=== PATIENT | male | born 1970 | race African-American/Black ===

== ENCOUNTER 2016-10-02 08:17 | Inpatient (IN) | payer OTHER ==
[2016-10-02 10:06] VITALS: BMI 34.9
--- NOTE | 2016-10-02 12:22 | HP ---
CIWA Score - CIWA Score Nausea/Vomitin-Mild Nausea/No Vomiting Muscle Tremors: 4-Moderate,w/Arms Extend Anxiety: 3 Agitation: 4-Moderately Restless Paroxysmal Sweats: 3 Orientation: 0-Oriented Tacttile Disturbances: 0-None Auditory Disturbances: 0-None Visual Disturbances: 0-None Headache: 1-Very Mild CIWA-Ar Total Score: 16 Admission ROS BHS - HPI Allergies/Adverse Reactions: Allergies Allergy/AdvReac Type Severity Reaction Status Date / Time penicillin G Allergy Severe Swelling Verified 10/02/16 09:50 Exam Limitations: No Limitations - Ebola screening Have you traveled outside of the country in the last 21 days: No Have you had contact with anyone from an Ebola affected area: No Have you been sick,other than usual withdrawal symptoms: No Do you have a fever: No - Review of Systems Constitutional: Diaphoresis EENT: reports: No Symptoms Reported Respiratory: reports: No Symptoms reported Cardiac: reports: No Symptoms Reported GI: reports: Diarrhea, Poor Appetite, Poor Fluid Intake, Indigestion : reports: No Symptoms Reported Musculoskeletal: reports: No Symptoms Reported Integumentary: reports: Other (eczema) Neuro: reports: Tingling, Tremors Endocrine: reports: Excessive Sweating, Flushing, Intolerance to Cold, Intolerance to Heat Hematology: reports: No Symptoms Reported Psychiatric: reports: Judgement Intact, Mood/Affect Appropiate, Orientated x3, Agitated, Anxious Other Systems: Reviewed and Negative Patient History - Patient Medical History Hx Anemia: No Hx Asthma: No Hx Chronic Obstructive Pulmonary Disease (COPD): No Hx Cancer: No Hx Cardiac Disorders: No Hx Congestive Heart Failure: No Hx Hypertension: Yes Hx Hypercholesterolemia: No Hx Pacemaker: No HX Cerebrovascular Accident: No Hx Seizures: No Hx Dementia: No Hx Diabetes: Yes (NIDDM/boarderline ) Hx Gastrointestinal Disorders: Yes (acid reflux) Hx Liver Disease: No Hx Genitourinary Disorders: No Hx Sexually Transmitted Disorders: No Hx Renal Disease (ESRD): No Hx Thyroid Disease: No Hx Human Immunodeficiency Virus (HIV): No (negative) Hx Hepatitis C: No (negative) Hx Depression: No Hx Suicide Attempt: No (denies) Hx Bipolar Disorder: No Hx Schizophrenia: No - Patient Surgical History Past Surgical History: No Hx Neurologic Surgery: No Hx Cataract Extraction: No Hx Cardiac Surgery: No Hx Lung Surgery: No Hx Breast Surgery: No Hx Breast Biopsy: No Hx Abdominal Surgery: No Hx Appendectomy: No Hx Cholecystectomy: No Hx Genitourinary Surgery: No Hx Section: No Hx Orthopedic Surgery: No Anesthesia Reaction: No - PPD History Previous Implant?: Yes Documented Results: Negative w/o proof Implanted On Prior [facility] Admission?: Yes PPD to be Administered?: Yes - Reproductive History Patient is a Female of Child Bearing Age (11 -55 yrs old): No - Smoking Cessation Smoking history: Former smoker Have you smoked in the past 12 months: Yes Aproximately how many cigarettes per day: 20 Cigars Per Day: 0 Hx Chewing Tobacco Use: No Initiated information on smoking cessation: Yes 'Breaking Loose' booklet given: 10/02/16 - Substance & Tx. History Hx Alcohol Use: Yes Hx Substance Use: Yes Substance Use Type: Alcohol, Marijuana - Substances Abused Alcohol-vodka/cognac/beer Route: Oral Frequency: Daily Amount used: 4 pts./2-6 pks. Age of first use: 17 Date of Last Use: 10/02/16 Marijuana Route: Smoking Frequency: Daily Amount used: $20 Age of first use: 19 Date of Last Use: 09/30/16 Family Disease History - Family Disease History Family Disease History: Diabetes: Grandparent, Respiratory: Sister (asthma), Other: Father (,alcohol), Mother (htn) Admission Physical Exam [facility] - Vital Signs Vital Signs: Vital Signs - 24 hr 10/02/16 09:55 Temperature 98 F Pulse Rate 86 Respiratory 20 Rate Blood Pressure 152/79 - Physical General Appearance: Yes: Appropriately Dressed, Moderate Distress, Obese, Tremorous, Irritable, Sweating, Anxious HEENTM: Yes: Hearing grossly Normal Respiratory: Yes: Lungs Clear, Normal Breath Sounds, No Respiratory Distress Neck: Yes: No masses,lesions,Nodules Breast: Yes: Within Normal Limits Cardiology: Yes: Regular Rhythm, Regular Rate, S1, S2 Abdominal: Yes: Normal Bowel Sounds Genitourinary: Yes: Within Normal Limits Back: Yes: Normal Inspection Musculoskeletal: Yes: full range of Motion, Back pain Extremities: Yes: Normal Capillary Refill, Tremors Neurological: Yes: Fully Oriented, Alert, Normal Response Integumentary: Yes: Normal Color, Diaphoresis, Other (eczema) Lymphatic: Yes: Within Normal Limits Cleared for Admission [facility] - Detox or Rehab [facility] Level of Care: Medically Managed Detox Regimen/Protocol: Librium [facility] Breath Alcohol Content Breath Alcohol Content: 0 Urine Drug Screen - Results Drug Screen Negative: No Urine Drug Screen Results: THC-Marijuana
[2016-10-02] MEDS ORDERED: LOPERAMIDE HCL 2 MG CAPSULE PO PRN (12:26)
[2016-10-02] MEDS ORDERED: MAGNESIUM HYDROX 2400MG/30ML ORAL SUSPENSION 30 ML CUP PO PRN (12:26)
[2016-10-02] MEDS ORDERED: guaiFENesin/D-METHORPHAN HB 10 ML UNIT-DOSE CUPS PO PRN (12:26)
[2016-10-02] MEDS ORDERED: MAGNESIUM CITRATE 300 ML BOTTLE PO PRN (12:26)
[2016-10-02] MEDS ORDERED: MAG HYDROX/AL HYDROX/SIMETH 30 ML UNIT-DOSE CUP PO PRN (12:26)
[2016-10-02] MEDS ORDERED: P-EPHED 60MG/TRIPROLIDI 2.5MG TABLET PO PRN (12:26)
[2016-10-02] MEDS ORDERED: MENTHOL/PHENOL 1 EACH UD MM PRN (12:26)
[2016-10-02] MEDS ORDERED: chlordiazePOXIDE HCL 25 MG CAPSULE PO PRN (12:26)
[2016-10-02] MEDS ORDERED: ACETAMINOPHEN 325 MG TABLET (FP) PO PRN (12:26)
[2016-10-02] MEDS ORDERED: IBUPROFEN 400 MG TABLET (FP) PO PRN (12:26)
[2016-10-02] MEDS ORDERED: hydrOXYzine PAMOATE 50 MG CAPSULE (FP) PO PRN (12:26)
[2016-10-02] MEDS ORDERED: chlordiazePOXIDE HCL 25 MG CAPSULE PO ONE (12:34)
[2016-10-02] MEDS: HYDROCHLOROTHIAZIDE 25 MG TABLET (FP) PO SCH (13:19)
--- NOTE | 2016-10-02 16:47 | EKG ---
Test Reason : Blood Pressure : / mmHG Vent. Rate : 076 BPM Atrial Rate : 076 BPM P-R Int : 166 ms QRS Dur : 108 ms QT Int : 402 ms P-R-T Axes : 145 -12 138 degrees QTc Int : 452 ms SINUS RHYTHM NONSPECIFIC T WAVE ABNORMALITY ABNORMAL ECG NO PREVIOUS ECGS AVAILABLE Confirmed by LILLY NAM MD ([id number]) on 10/02/2016 4:46:49 PM Referred By: Javier Ernandez Confirmed By:LILLY NAM MD
--- NOTE | 2016-10-02 16:47 | EKG ---
Test Reason : Blood Pressure : / mmHG Vent. Rate : 083 BPM Atrial Rate : 083 BPM P-R Int : 172 ms QRS Dur : 102 ms QT Int : 402 ms P-R-T Axes : 053 034 039 degrees QTc Int : 472 ms NORMAL SINUS RHYTHM NORMAL ECG WHEN COMPARED WITH ECG OF 02-OCT-2016 12:30, SINUS RHYTHM HAS REPLACED ECTOPIC ATRIAL RHYTHM NONSPECIFIC T WAVE ABNORMALITY NO LONGER EVIDENT IN INFERIOR LEADS Confirmed by VIV CASPER, LILLY ([id number]) on 10/02/2016 4:46:59 PM Referred By: Jvaier Ernandez Confirmed By:LILLY NAM MD
[2016-10-02] MEDS: metFORMIN HCL 500 MG TABLET (FP) PO SCH (17:38)
[2016-10-02] MEDS: chlordiazePOXIDE HCL 25 MG CAPSULE PO SCH ×2 (17:38→23:02)
[2016-10-02 17:44] LABS: URINE APPEARANCE CLEAR; URINE BILIRUBIN NEGATIVE (NEGATIVE); URINE BLOOD NEGATIVE (NEGATIVE); URINE COLOR YELLOW; URINE GLUCOSE (UA) NEGATIVE (NEGATIVE); URINE KETONE TRACE (NEGATIVE); URINE NITRITE NEGATIVE (NEGATIVE); URINE UROBILINOGEN NEGATIVE E.U./dl (0.2-1.0)
[2016-10-02 18:11] LABS: URINE LEUK ESTERASE TRACE (NEGATIVE); URINE PROTEIN 1+ (NEGATIVE)
[2016-10-02] MEDS: diphenhydrAMINE HCL 50 MG CAPSULE PO PRN (23:02)
[2016-10-02] MEDS: THIAMINE HCL 100 MG TABLET (FP) PO SCH (23:02)
[2016-10-03] MEDS: chlordiazePOXIDE HCL 25 MG CAPSULE PO SCH ×4 (06:37→23:09)
[2016-10-03] MEDS: metFORMIN HCL 500 MG TABLET (FP) PO SCH ×2 (06:38→17:25)
[2016-10-03 10:08] LABS: MCH 28.8 pg (25.7-33.7); MCHC 33.1 g/dl (32.0-35.9); MEAN PLT VOLUME 9.7 fl (7.5-11.1); PLATELET COUNT 186 K/MM3 (134-434); RDW 13.6 % (11.9-15.9); WHITE BLOOD COUNT 3.1 K/mm3 (4.0-10.0)
[2016-10-03 10:32] LABS: ALBUMIN 3.7 g/dl (3.4-5.0); BILIRUBIN,TOTAL 0.7 mg/dL (0.2-1.0); COCKROFT - GAULT 106.84; CREATININE 1.5 mg/dL (0.7-1.3); TOT PROT 6.7 g/dl (6.4-8.2)
[2016-10-03] MEDS: PRENATAL VITAMINS W/ FOLIC ACID TABLET (FP) PO SCH (11:41)
[2016-10-03] MEDS: amLODIPine BESYLATE 10 MG TABLET (FP) PO SCH (11:58)
[2016-10-03] MEDS: HYDROCHLOROTHIAZIDE 25 MG TABLET (FP) PO SCH (11:58)
--- NOTE | 2016-10-03 16:15 | PN ---
S CIWA - CIWA Score Nausea/Vomitin Muscle Tremors: 3 Anxiety: 3 Agitation: 2 Paroxysmal Sweats: 1-Minimal Palms Moist Orientation: 0-Oriented Tacttile Disturbances: 3-Moderate Itch/Numb/Burn Auditory Disturbances: 0-None Visual Disturbances: 2-Mild Sensitivity Headache: 2-Mild CIWA-Ar Total Score: 18 BHS Progress Note (SOAP) Subjective: Stomach Cramping, H/A, Tremors. Objective: PT. A & O X 3, OBSERVED AMBULATING ON UNIT. PT. DENIES CHEST PAIN. 10/03/16 16:12 Vital Signs Temperature 97.4 F L 10/03/16 10:15 Pulse Rate 79 10/03/16 11:00 Respiratory Rate 18 10/03/16 11:00 Blood Pressure 152/93 10/03/16 11:00 O2 Sat by Pulse Oximetry (%) Laboratory Last Values WBC 3.1 K/mm3 (4.0-10.0) L D 10/03/16 06:00 RBC 4.65 M/mm3 (4.00-5.60) 10/03/16 06:00 Hgb 13.4 GM/dL (11.7-16.9) 10/03/16 06:00 Hct 40.5 % (35.4-49) 10/03/16 06:00 MCV 87.0 fl (80-96) 10/03/16 06:00 MCHC 33.1 g/dl (32.0-35.9) 10/03/16 06:00 RDW 13.6 % (11.9-15.9) 10/03/16 06:00 Plt Count 186 K/MM3 (134-434) 10/03/16 06:00 MPV 9.7 fl (7.5-11.1) D 10/03/16 06:00 Sodium 142 mmol/L (136-145) 10/03/16 06:00 Potassium 4.1 mmol/L (3.5-5.1) 10/03/16 06:00 Chloride 107 mmol/L (98-107) 10/03/16 06:00 Carbon Dioxide 28 mmol/L (21-32) 10/03/16 06:00 Anion Gap 7 (8-16) L 10/03/16 06:00 BUN 14 mg/dL (7-18) D 10/03/16 06:00 Creatinine 1.5 mg/dL (0.7-1.3) H 10/03/16 06:00 Creat Clearance w eGFR 50.84 (>60) 10/03/16 06:00 POC Glucometer 105 UNITS (()) 10/03/16 06:25 Random Glucose 172 mg/dL (74-106) H D 10/03/16 06:00 Calcium 9.0 mg/dL (8.5-10.1) 10/03/16 06:00 Total Bilirubin 0.7 mg/dL (0.2-1.0) D 10/03/16 06:00 AST 29 U/L (15-37) D 10/03/16 06:00 ALT 51 U/L (12-78) D 10/03/16 06:00 Alkaline Phosphatase 100 U/L (45-117) 10/03/16 06:00 Total Protein 6.7 g/dl (6.4-8.2) 10/03/16 06:00 Albumin 3.7 g/dl (3.4-5.0) 10/03/16 06:00 Urine Color Yellow 10/02/16 13:00 Urine Appearance Clear 10/02/16 13:00 Urine pH 5.0 (5.0-8.0) 10/02/16 13:00 Ur Specific [place] >= 1.030 (1.005-1.025) H 10/02/16 13:00 Urine Protein 1+ (NEGATIVE) H 10/02/16 13:00 Urine Glucose (UA) Negative (NEGATIVE) 10/02/16 13:00 Urine Ketones Trace (NEGATIVE) H 10/02/16 13:00 Urine Blood Negative (NEGATIVE) 10/02/16 13:00 Urine Nitrite Negative (NEGATIVE) 10/02/16 13:00 Urine Bilirubin Negative (NEGATIVE) 10/02/16 13:00 Urine Urobilinogen Negative E.U./dl (0.2-1.0) 10/02/16 13:00 Ur Leukocyte Esterase Trace (NEGATIVE) H 10/02/16 13:00 RPR Titer Nonreactive (NONREACTIVE) 10/03/16 06:00 LABS NOTED. Assessment: 10/03/16 16:13 WITHDRAWAL SYMPTOMS. Plan: CONTINUE DETOX. D/C MAGNESIUM-CONTAINING MEDICATIONS. ADVISED PATIENT TO FOLLOW-UP WITH GEOMAGNETIST / REHAB MEDICAL PROVIDER AFTER DISCHARGE FROM DETOX FOR GENERAL MEDICAL ASSESSMENT AND FOR ABNORMAL ADMISSION LAB VALUES.
[2016-10-03] MEDS ORDERED: cloNIDine HCL 0.1 MG TABLET PO ONE (22:30)
[2016-10-03] MEDS: THIAMINE HCL 100 MG TABLET (FP) PO SCH (23:09)
[2016-10-04] MEDS: chlordiazePOXIDE HCL 25 MG CAPSULE PO SCH ×2 (05:16→10:46)
[2016-10-04] MEDS: amLODIPine BESYLATE 10 MG TABLET (FP) PO SCH ×2 (06:33→10:48)
[2016-10-04] MEDS: CARVEDILOL 3.125 MG TABLET (FP) PO SCH ×3 (06:33→22:31)
[2016-10-04] MEDS: HYDROCHLOROTHIAZIDE 25 MG TABLET (FP) PO SCH ×2 (06:33→10:48)
[2016-10-04] MEDS: metFORMIN HCL 500 MG TABLET (FP) PO SCH ×2 (06:35→17:06)
[2016-10-04] MEDS: PRENATAL VITAMINS W/ FOLIC ACID TABLET (FP) PO SCH (10:47)
--- NOTE | 2016-10-04 15:38 | PN ---
[facility] CIWA - CIWA Score Nausea/Vomitin-No Nausea/No Vomiting Muscle Tremors: 4-Moderate,w/Arms Extend Anxiety: 4-Mod. Anxious/Guarded Agitation: 0-Normal Activity Paroxysmal Sweats: 2 Orientation: 4Disoriented Place/Person Tacttile Disturbances: 0-None Auditory Disturbances: 2-Mild Harshness/Frighten Visual Disturbances: 3-Moderate Sensitivity Headache: 0-None Present CIWA-Ar Total Score: 19 S Progress Note (SOAP) Subjective: Diarrhea, Fatigue, Tremors, Body aches. Objective: PT. A & O X 1 (DISORIENTED ABOUT DAY/DATE AND ABOUT CURRENT LOCATION). PT. OBSERVED AMBULATING ON UNIT. PT. DENIES CHEST PAIN. 10/04/16 15:35 Vital Signs Temperature 97.9 F 10/04/16 13:20 Pulse Rate 98 H 10/04/16 13:20 Respiratory Rate 20 10/04/16 13:20 Blood Pressure 134/92 10/04/16 13:20 O2 Sat by Pulse Oximetry (%) Laboratory Last Values WBC 3.1 K/mm3 (4.0-10.0) L D 10/03/16 06:00 RBC 4.65 M/mm3 (4.00-5.60) 10/03/16 06:00 Hgb 13.4 GM/dL (11.7-16.9) 10/03/16 06:00 Hct 40.5 % (35.4-49) 10/03/16 06:00 MCV 87.0 fl (80-96) 10/03/16 06:00 MCHC 33.1 g/dl (32.0-35.9) 10/03/16 06:00 RDW 13.6 % (11.9-15.9) 10/03/16 06:00 Plt Count 186 K/MM3 (134-434) 10/03/16 06:00 MPV 9.7 fl (7.5-11.1) D 10/03/16 06:00 Sodium 142 mmol/L (136-145) 10/03/16 06:00 Potassium 4.1 mmol/L (3.5-5.1) 10/03/16 06:00 Chloride 107 mmol/L (98-107) 10/03/16 06:00 Carbon Dioxide 28 mmol/L (21-32) 10/03/16 06:00 Anion Gap 7 (8-16) L 10/03/16 06:00 BUN 14 mg/dL (7-18) D 10/03/16 06:00 Creatinine 1.5 mg/dL (0.7-1.3) H 10/03/16 06:00 Creat Clearance w eGFR 50.84 (>60) 10/03/16 06:00 POC Glucometer 131 UNITS (()) 10/04/16 05:15 Random Glucose 172 mg/dL (74-106) H D 10/03/16 06:00 Calcium 9.0 mg/dL (8.5-10.1) 10/03/16 06:00 Total Bilirubin 0.7 mg/dL (0.2-1.0) D 10/03/16 06:00 AST 29 U/L (15-37) D 10/03/16 06:00 ALT 51 U/L (12-78) D 10/03/16 06:00 Alkaline Phosphatase 100 U/L (45-117) 10/03/16 06:00 Total Protein 6.7 g/dl (6.4-8.2) 10/03/16 06:00 Albumin 3.7 g/dl (3.4-5.0) 10/03/16 06:00 Urine Color Yellow 10/02/16 13:00 Urine Appearance Clear 10/02/16 13:00 Urine pH 5.0 (5.0-8.0) 10/02/16 13:00 Ur Specific [place] >= 1.030 (1.005-1.025) H 10/02/16 13:00 Urine Protein 1+ (NEGATIVE) H 10/02/16 13:00 Urine Glucose (UA) Negative (NEGATIVE) 10/02/16 13:00 Urine Ketones Trace (NEGATIVE) H 10/02/16 13:00 Urine Blood Negative (NEGATIVE) 10/02/16 13:00 Urine Nitrite Negative (NEGATIVE) 10/02/16 13:00 Urine Bilirubin Negative (NEGATIVE) 10/02/16 13:00 Urine Urobilinogen Negative E.U./dl (0.2-1.0) 10/02/16 13:00 Ur Leukocyte Esterase Trace (NEGATIVE) H 10/02/16 13:00 RPR Titer Nonreactive (NONREACTIVE) 10/03/16 06:00 LABS NOTED. Assessment: 10/04/16 15:36 WITHDRAWAL SYMPTOMS. Plan: CONTINUE DETOX. CONTINUE TO MONITOR BP. ADVISED PATIENT TO FOLLOW-UP WITH ALLERGY AND IMMUNOLOGY SPECIALIST AFTER DISCHARGE FROM DETOX FOR GENERAL MEDICAL ASSESSMENT AND FOR ABNORMAL ADMISSION LAB VALUES.
[2016-10-04] MEDS: chlordiazePOXIDE 5 MG CAPSULE PO SCH ×2 (17:06→22:31)
[2016-10-04] MEDS: THIAMINE HCL 100 MG TABLET (FP) PO SCH (22:31)
[2016-10-04] MEDS: diphenhydrAMINE HCL 50 MG CAPSULE PO PRN (22:31)
[2016-10-05] MEDS: chlordiazePOXIDE 5 MG CAPSULE PO SCH ×2 (05:52→10:51)
[2016-10-05] MEDS: metFORMIN HCL 500 MG TABLET (FP) PO SCH ×2 (08:35→17:02)
[2016-10-05] MEDS: HYDROCHLOROTHIAZIDE 25 MG TABLET (FP) PO SCH (10:48)
[2016-10-05] MEDS: PRENATAL VITAMINS W/ FOLIC ACID TABLET (FP) PO SCH (10:49)
[2016-10-05] MEDS: amLODIPine BESYLATE 10 MG TABLET (FP) PO SCH (10:49)
[2016-10-05] MEDS: CARVEDILOL 3.125 MG TABLET (FP) PO SCH ×2 (10:49→22:05)
[2016-10-05] MEDS: HYDROCORTISONE 0.5% TOPICAL OINTMENT TUBE TP SCH ×2 (15:22→22:05)
[2016-10-05] MEDS: chlordiazePOXIDE HCL 10 MG CAPSULE PO SCH ×2 (17:02→22:05)
--- NOTE | 2016-10-05 17:05 | PN ---
S Progress Note (SOAP) Subjective: Diarrhea, Fatigue, Tremors. Objective: PT. A & O X 3, OBSERVED AMBULATING ON UNIT. PT. DENIES CHEST PAIN. 10/05/16 17:03 Vital Signs Temperature 96.8 F L 10/05/16 13:29 Pulse Rate 84 10/05/16 13:29 Respiratory Rate 18 10/05/16 13:29 Blood Pressure 157/102 10/05/16 13:29 O2 Sat by Pulse Oximetry (%) Laboratory Last Values WBC 3.1 K/mm3 (4.0-10.0) L D 10/03/16 06:00 RBC 4.65 M/mm3 (4.00-5.60) 10/03/16 06:00 Hgb 13.4 GM/dL (11.7-16.9) 10/03/16 06:00 Hct 40.5 % (35.4-49) 10/03/16 06:00 MCV 87.0 fl (80-96) 10/03/16 06:00 MCHC 33.1 g/dl (32.0-35.9) 10/03/16 06:00 RDW 13.6 % (11.9-15.9) 10/03/16 06:00 Plt Count 186 K/MM3 (134-434) 10/03/16 06:00 MPV 9.7 fl (7.5-11.1) D 10/03/16 06:00 Sodium 142 mmol/L (136-145) 10/03/16 06:00 Potassium 4.1 mmol/L (3.5-5.1) 10/03/16 06:00 Chloride 107 mmol/L (98-107) 10/03/16 06:00 Carbon Dioxide 28 mmol/L (21-32) 10/03/16 06:00 Anion Gap 7 (8-16) L 10/03/16 06:00 BUN 14 mg/dL (7-18) D 10/03/16 06:00 Creatinine 1.5 mg/dL (0.7-1.3) H 10/03/16 06:00 Creat Clearance w eGFR 50.84 (>60) 10/03/16 06:00 POC Glucometer 191 UNITS (()) 10/05/16 16:22 Random Glucose 172 mg/dL (74-106) H D 10/03/16 06:00 Calcium 9.0 mg/dL (8.5-10.1) 10/03/16 06:00 Total Bilirubin 0.7 mg/dL (0.2-1.0) D 10/03/16 06:00 AST 29 U/L (15-37) D 10/03/16 06:00 ALT 51 U/L (12-78) D 10/03/16 06:00 Alkaline Phosphatase 100 U/L (45-117) 10/03/16 06:00 Total Protein 6.7 g/dl (6.4-8.2) 10/03/16 06:00 Albumin 3.7 g/dl (3.4-5.0) 10/03/16 06:00 Urine Color Yellow 10/02/16 13:00 Urine Appearance Clear 10/02/16 13:00 Urine pH 5.0 (5.0-8.0) 10/02/16 13:00 Ur Specific [place] >= 1.030 (1.005-1.025) H 10/02/16 13:00 Urine Protein 1+ (NEGATIVE) H 10/02/16 13:00 Urine Glucose (UA) Negative (NEGATIVE) 10/02/16 13:00 Urine Ketones Trace (NEGATIVE) H 10/02/16 13:00 Urine Blood Negative (NEGATIVE) 10/02/16 13:00 Urine Nitrite Negative (NEGATIVE) 10/02/16 13:00 Urine Bilirubin Negative (NEGATIVE) 10/02/16 13:00 Urine Urobilinogen Negative E.U./dl (0.2-1.0) 10/02/16 13:00 Ur Leukocyte Esterase Trace (NEGATIVE) H 10/02/16 13:00 RPR Titer Nonreactive (NONREACTIVE) 10/03/16 06:00 LABS NOTED. Assessment: 10/05/16 17:05 WITHDRAWAL SYMPTOMS. Plan: CONTINUE DETOX. ADVISED PATIENT TO FOLLOW-UP WITH GETTER WELDER AFTER DISCHARGE FROM DETOX FOR GENERAL MEDICAL ASSESSMENT AND FOR ABNORMAL ADMISSION LAB VALUES.
[2016-10-05] MEDS ORDERED: cloNIDine HCL 0.1 MG TABLET PO ONE (17:34)
[2016-10-05] MEDS: THIAMINE HCL 100 MG TABLET (FP) PO SCH (22:05)
[2016-10-05] MEDS: diphenhydrAMINE HCL 50 MG CAPSULE PO PRN (22:06)
[2016-10-06] MEDS: chlordiazePOXIDE HCL 10 MG CAPSULE PO SCH ×2 (05:49→12:08)
[2016-10-06 06:21] VITALS: BP 153/106; PULSE 78; TEMP 97
[2016-10-06] MEDS: metFORMIN HCL 500 MG TABLET (FP) PO SCH (06:46)
--- NOTE | 2016-10-06 08:31 | DS ---
[facility] Detox Discharge Summary Admission Date: 10/02/16 Discharge Date: 10/06/16 - History Present History: Alcohol Dependence, Cannabis Dependence Pertinent Past History: GERD Type II DM HTN Eczema Obesity - Physical Exam Results Vital Signs: Vital Signs Temperature 97.0 F L 10/06/16 06:20 Pulse Rate 78 10/06/16 06:20 Respiratory Rate 18 10/06/16 06:20 Blood Pressure 153/106 10/06/16 06:20 O2 Sat by Pulse Oximetry (%) Pertinent Admission Physical Exam Findings: Withdrawal sx. Laboratory Last Values WBC 3.1 K/mm3 (4.0-10.0) L D 10/03/16 06:00 RBC 4.65 M/mm3 (4.00-5.60) 10/03/16 06:00 Hgb 13.4 GM/dL (11.7-16.9) 10/03/16 06:00 Hct 40.5 % (35.4-49) 10/03/16 06:00 MCV 87.0 fl (80-96) 10/03/16 06:00 MCHC 33.1 g/dl (32.0-35.9) 10/03/16 06:00 RDW 13.6 % (11.9-15.9) 10/03/16 06:00 Plt Count 186 K/MM3 (134-434) 10/03/16 06:00 MPV 9.7 fl (7.5-11.1) D 10/03/16 06:00 Sodium 142 mmol/L (136-145) 10/03/16 06:00 Potassium 4.1 mmol/L (3.5-5.1) 10/03/16 06:00 Chloride 107 mmol/L (98-107) 10/03/16 06:00 Carbon Dioxide 28 mmol/L (21-32) 10/03/16 06:00 Anion Gap 7 (8-16) L 10/03/16 06:00 BUN 14 mg/dL (7-18) D 10/03/16 06:00 Creatinine 1.5 mg/dL (0.7-1.3) H 10/03/16 06:00 Creat Clearance w eGFR 50.84 (>60) 10/03/16 06:00 POC Glucometer 142 UNITS (()) 10/06/16 05:49 Random Glucose 172 mg/dL (74-106) H D 10/03/16 06:00 Calcium 9.0 mg/dL (8.5-10.1) 10/03/16 06:00 Total Bilirubin 0.7 mg/dL (0.2-1.0) D 10/03/16 06:00 AST 29 U/L (15-37) D 10/03/16 06:00 ALT 51 U/L (12-78) D 10/03/16 06:00 Alkaline Phosphatase 100 U/L (45-117) 10/03/16 06:00 Total Protein 6.7 g/dl (6.4-8.2) 10/03/16 06:00 Albumin 3.7 g/dl (3.4-5.0) 10/03/16 06:00 Urine Color Yellow 10/02/16 13:00 Urine Appearance Clear 10/02/16 13:00 Urine pH 5.0 (5.0-8.0) 10/02/16 13:00 Ur Specific [place] >= 1.030 (1.005-1.025) H 10/02/16 13:00 Urine Protein 1+ (NEGATIVE) H 10/02/16 13:00 Urine Glucose (UA) Negative (NEGATIVE) 10/02/16 13:00 Urine Ketones Trace (NEGATIVE) H 10/02/16 13:00 Urine Blood Negative (NEGATIVE) 10/02/16 13:00 Urine Nitrite Negative (NEGATIVE) 10/02/16 13:00 Urine Bilirubin Negative (NEGATIVE) 10/02/16 13:00 Urine Urobilinogen Negative E.U./dl (0.2-1.0) 10/02/16 13:00 Ur Leukocyte Esterase Trace (NEGATIVE) H 10/02/16 13:00 RPR Titer Nonreactive (NONREACTIVE) 10/03/16 06:00 labs noted - Treatment Hospital Course: Detox Protocol Followed, Detoxed Safely, Responded well, Discharged Condition Good, Rehab Referral Accepted - Medication Discharge Medications: Ambulatory Orders Amlodipine Besylate [Norvasc -] 10 mg PO DAILY #30 tablet 04/16/14 Hydrochlorothiazide 25 mg PO DAILY 10/02/16 Metformin HCl [Glucophage -] 500 mg PO BID 10/02/16 - Diagnosis (1) Alcohol dependence with uncomplicated withdrawal Current Visit: Yes Status: Acute (2) Cannabis dependence Current Visit: No Status: Acute (3) GERD (gastroesophageal reflux disease) Current Visit: Yes Status: Acute Qualifiers: Esophagitis presence: esophagitis presence not specified Qualified Code(s): K21.9 - Gastro-esophageal reflux disease without esophagitis (4) Eczema Current Visit: No Status: Chronic Qualifiers: Eczema type: unspecified Qualified Code(s): L30.9 - Dermatitis, unspecified (5) Essential hypertension Current Visit: Yes Status: Chronic (6) Nicotine dependence Current Visit: Yes Status: Chronic Qualifiers: Nicotine product type: cigarettes Substance use status: uncomplicated Qualified Code(s): F17.210 - Nicotine dependence, cigarettes, uncomplicated (7) Obesity Current Visit: Yes Status: Chronic Qualifiers: Obesity type: unspecified obesity type Obesity severity: non-morbid Qualified Code(s): E66.9 - Obesity, unspecified (8) Type II diabetes mellitus Current Visit: Yes Status: Acute Qualifiers: Diabetes mellitus complication status: without complication Diabetes mellitus truck terminal manager insulin use: without truck terminal manager use Qualified Code(s): E11.9 - Type 2 diabetes mellitus without complications - AMA Did Patient Leave Against Medical Advice: No
[2016-10-06] MEDS: amLODIPine BESYLATE 10 MG TABLET (FP) PO SCH (10:44)
[2016-10-06] MEDS: HYDROCORTISONE 0.5% TOPICAL OINTMENT TUBE TP SCH (10:44)
[2016-10-06] MEDS: CARVEDILOL 3.125 MG TABLET (FP) PO SCH (10:44)
[2016-10-06] MEDS: PRENATAL VITAMINS W/ FOLIC ACID TABLET (FP) PO SCH (10:44)
[2016-10-06] MEDS: HYDROCHLOROTHIAZIDE 25 MG TABLET (FP) PO SCH (10:44)
== END 2016-10-06 12:10 | disposition other institution (70) | DRG 775 ==
LOC: YASAS 08:17 → Y3N 11:47
PROVIDERS: ADMIT Internal Medicine Addiction Medicine; ATTEND Internal Medicine Addiction Medicine
PROC: HZ2ZZZZ Detoxification Services for Substance Abuse Treatment (ICD-10-PCS; principal; 2016-10-06)
DX: F10.230 Alcohol dependence with withdrawal, uncomplicated (principal); F12.20 Cannabis dependence, uncomplicated; F17.210 Nicotine dependence, cigarettes, uncomplicated; E11.9 Type 2 diabetes mellitus without complications; Z79.84 Long term (current) use of oral hypoglycemic drugs; I10 Essential (primary) hypertension; K21.9 Gastro-esophageal reflux disease without esophagitis; L30.9 Dermatitis, unspecified; E66.09 Other obesity due to excess calories; Z68.35 Body mass index [BMI] 35.0-35.9, adult
CPT/HCPCS: 36415; 80053; 81003; 81015; 85027; 86593; 93005; 93010

== ENCOUNTER 2016-10-06 12:12 | Inpatient (IN) | payer OTHER ==
[2016-10-06] MEDS ORDERED: MENTHOL/PHENOL 1 EACH UD MM PRN (13:41)
[2016-10-06] MEDS ORDERED: ACETAMINOPHEN 325 MG TABLET (FP) PO PRN (13:41)
[2016-10-06] MEDS ORDERED: P-EPHED 60MG/TRIPROLIDI 2.5MG TABLET PO PRN (13:41)
[2016-10-06] MEDS ORDERED: LOPERAMIDE HCL 2 MG CAPSULE PO PRN (13:41)
[2016-10-06] MEDS ORDERED: guaiFENesin/D-METHORPHAN HB 10 ML UNIT-DOSE CUPS PO PRN (13:41)
[2016-10-06] MEDS ORDERED: IBUPROFEN 400 MG TABLET (FP) PO PRN (13:41)
[2016-10-06] MEDS ORDERED: MAGNESIUM CITRATE 300 ML BOTTLE PO PRN (13:41)
[2016-10-06] MEDS ORDERED: MAGNESIUM HYDROX 2400MG/30ML ORAL SUSPENSION 30 ML CUP PO PRN (13:41)
--- NOTE | 2016-10-06 16:18 | HP ---
[facility] Re[facility] Assess/Revision - Admission History Admitted to Rehab from: [facility] Date of Admission to Rehab: 10/06/16 - Vital signs Vital Signs: Vital Signs Period Temp Pulse Resp BP Sys/Christina Pulse Ox Last 24 Hr 98 F 86 18 145/93 - Findings Detox History & Physical reviewed: Yes Concur with findings: Yes Comments/Additional Findings: TRANSFERRED FROM DETOX TO REHAB ADMISSION PER PROTOCOL
[2016-10-06] MEDS: metFORMIN HCL 500 MG TABLET (FP) PO SCH (16:54)
[2016-10-06] MEDS: CARVEDILOL 3.125 MG TABLET (FP) PO SCH (22:35)
[2016-10-06] MEDS: THIAMINE HCL 100 MG TABLET (FP) PO SCH (22:36)
[2016-10-06] MEDS: diphenhydrAMINE HCL 50 MG CAPSULE PO PRN (22:37)
[2016-10-07] MEDS: metFORMIN HCL 500 MG TABLET (FP) PO SCH ×2 (06:31→16:45)
[2016-10-07] MEDS: CARVEDILOL 3.125 MG TABLET (FP) PO SCH ×2 (10:19→21:30)
[2016-10-07] MEDS: amLODIPine BESYLATE 10 MG TABLET (FP) PO SCH (10:19)
[2016-10-07] MEDS: PRENATAL VITAMINS W/ FOLIC ACID TABLET (FP) PO SCH (10:19)
[2016-10-07] MEDS: HYDROCORTISONE 0.5% TOPICAL OINTMENT TUBE TP PRN (10:20)
[2016-10-07] MEDS: HYDROCHLOROTHIAZIDE 25 MG TABLET (FP) PO SCH (10:20)
--- NOTE | 2016-10-07 13:56 | HP ---
Psychiatrist Admission - Data Date of interview: 10/07/16 Admission source: 3N Identifying data: This is the first 5N inpatient rehabilitation admission for this 46 year old single male father of 3, he is domiciled, unemployed and supported on SSI. Medical History: HTN, NIDDM, Acid reflux, eczema on back & shoulders Psychiatric History: Denies history of sexual, physical and verbal abuse. Physical/Sexual Abuse/Trauma History: Denies history of psychiatric treatment. Vital Signs: Vital Signs - 24 hr 10/06/16 10/07/16 10/07/16 21:33 03:30 06:56 Temperature 97.4 F L Pulse Rate 86 86 Respiratory 20 20 Rate Blood Pressure 163/90 147/94 Allergies/Adverse Reactions: Allergies Allergy/AdvReac Type Severity Reaction Status Date / Time penicillin G Allergy Severe Swelling Verified 10/06/16 12:26 Date of last physical exam: 10/02/16 Concur with the findings of this exam: Yes - Substance Abuse/Tx History Hx Alcohol Use: Yes Hx Substance Use: Yes Substance Use Type: Alcohol, Marijuana (2-3 times a week $20) Hx Substance Use Treatment: Yes - Admission Criteria Previous failed treatment: Yes Poor recovery environment: Yes Comorbidities: No Lacks judgement: Yes Mental Status Exam - Mental Status Exam Alert and Oriented to: Time, Place, Person Cognitive Function: Grossly Intact Patient Appearance: Well Groomed Mood: Hopeful Affect: Appropriate, Mood Congruent Patient Behavior: Appropriate, Cooperative Speech Pattern: Clear, Appropriate Voice Loudness: Normal Thought Process: Intact, Goal Oriented Thought Disorder: Not Present Hallucinations: Denies Suicidal Ideation: Denies Homicidal Ideation: Denies Insight/Judgement: Fair Sleep: Fair Appetite: Fair Muscle strength/Tone: Normal Gait/Station: Normal Psychiatric Findings - Problem List ([place] 1, 2,3) (1) Alcohol dependence Current Visit: No Status: Acute Qualifiers: Complication of substance-induced condition: uncomplicated (2) GERD (gastroesophageal reflux disease) Current Visit: No Status: Acute Qualifiers: Esophagitis presence: esophagitis presence not specified Qualified Code(s): K21.9 - Gastro-esophageal reflux disease without esophagitis (3) Cannabis dependence Current Visit: No Status: Acute - Initial Treatment Plan Initial Treatment Plan: will monitor progress as needed.
[2016-10-07] MEDS: diphenhydrAMINE HCL 50 MG CAPSULE PO PRN (21:30)
[2016-10-07] MEDS: THIAMINE HCL 100 MG TABLET (FP) PO SCH (21:30)
[2016-10-08] MEDS: metFORMIN HCL 500 MG TABLET (FP) PO SCH ×2 (06:27→16:50)
[2016-10-08] MEDS: HYDROCHLOROTHIAZIDE 25 MG TABLET (FP) PO SCH (10:26)
[2016-10-08] MEDS: CARVEDILOL 3.125 MG TABLET (FP) PO SCH ×2 (10:26→21:30)
[2016-10-08] MEDS: amLODIPine BESYLATE 10 MG TABLET (FP) PO SCH (10:26)
[2016-10-08] MEDS: PRENATAL VITAMINS W/ FOLIC ACID TABLET (FP) PO SCH (10:26)
[2016-10-08] MEDS: diphenhydrAMINE HCL 50 MG CAPSULE PO PRN (21:30)
[2016-10-08] MEDS: THIAMINE HCL 100 MG TABLET (FP) PO SCH (21:30)
[2016-10-09] MEDS: metFORMIN HCL 500 MG TABLET (FP) PO SCH ×2 (06:24→17:07)
[2016-10-09] MEDS: amLODIPine BESYLATE 10 MG TABLET (FP) PO SCH (10:32)
[2016-10-09] MEDS: PRENATAL VITAMINS W/ FOLIC ACID TABLET (FP) PO SCH (10:32)
[2016-10-09] MEDS: HYDROCHLOROTHIAZIDE 25 MG TABLET (FP) PO SCH (10:32)
[2016-10-09] MEDS: CARVEDILOL 3.125 MG TABLET (FP) PO SCH ×2 (10:32→21:34)
[2016-10-09] MEDS: diphenhydrAMINE HCL 50 MG CAPSULE PO PRN (21:34)
[2016-10-09] MEDS: THIAMINE HCL 100 MG TABLET (FP) PO SCH (21:34)
[2016-10-10] MEDS: metFORMIN HCL 500 MG TABLET (FP) PO SCH ×2 (06:41→16:36)
[2016-10-10] MEDS: HYDROCHLOROTHIAZIDE 25 MG TABLET (FP) PO SCH ×2 (06:55→10:13)
[2016-10-10] MEDS: amLODIPine BESYLATE 10 MG TABLET (FP) PO SCH ×2 (06:55→10:13)
[2016-10-10] MEDS: CARVEDILOL 3.125 MG TABLET (FP) PO SCH ×2 (10:13→21:36)
[2016-10-10] MEDS: PRENATAL VITAMINS W/ FOLIC ACID TABLET (FP) PO SCH (10:13)
[2016-10-10] MEDS: HYDROCORTISONE 0.5% TOPICAL OINTMENT TUBE TP PRN (10:14)
[2016-10-10] MEDS ORDERED: ASPIRIN 81 MG CHEWABLE TABLETS PO SCH (13:00)
[2016-10-10] MEDS: diphenhydrAMINE HCL 50 MG CAPSULE PO PRN (21:36)
[2016-10-10] MEDS: THIAMINE HCL 100 MG TABLET (FP) PO SCH (21:36)
[2016-10-10] MEDS ORDERED: ATORVASTATIN CA 20 MG TABLET (FP) PO SCH (22:00)
[2016-10-10] MEDS ORDERED: MONTELUKAST NA 10 MG TABLET PO SCH (22:00)
[2016-10-10] MEDS ORDERED: ACLIDINIUM BROMIDE 400 MCG/INH AERO.POWD IH SCH (22:00)
[2016-10-11] MEDS: metFORMIN HCL 500 MG TABLET (FP) PO SCH ×2 (07:54→16:48)
[2016-10-11] MEDS: HYDROCHLOROTHIAZIDE 25 MG TABLET (FP) PO SCH (10:10)
[2016-10-11] MEDS: PRENATAL VITAMINS W/ FOLIC ACID TABLET (FP) PO SCH (10:10)
[2016-10-11] MEDS: CARVEDILOL 3.125 MG TABLET (FP) PO SCH ×2 (10:10→21:42)
[2016-10-11] MEDS: amLODIPine BESYLATE 10 MG TABLET (FP) PO SCH (10:10)
[2016-10-11] MEDS: diphenhydrAMINE HCL 50 MG CAPSULE PO PRN (21:42)
[2016-10-11] MEDS: THIAMINE HCL 100 MG TABLET (FP) PO SCH (21:43)
[2016-10-12] MEDS: metFORMIN HCL 500 MG TABLET (FP) PO SCH ×2 (06:13→17:26)
[2016-10-12] MEDS: PRENATAL VITAMINS W/ FOLIC ACID TABLET (FP) PO SCH (10:21)
[2016-10-12] MEDS: amLODIPine BESYLATE 10 MG TABLET (FP) PO SCH (10:21)
[2016-10-12] MEDS: HYDROCHLOROTHIAZIDE 25 MG TABLET (FP) PO SCH (10:21)
[2016-10-12] MEDS: CARVEDILOL 3.125 MG TABLET (FP) PO SCH ×2 (10:21→21:35)
[2016-10-12 10:33] LABS: ALBUMIN 3.6 g/dl (3.4-5.0); CALCIUM 8.8 mg/dL (8.5-10.1)
[2016-10-12 10:37] LABS: BILIRUBIN,TOTAL 0.7 mg/dL (0.2-1.0); COCKROFT - GAULT 136.31; CREATININE 1.3 mg/dL (0.7-1.3); TOT PROT 6.6 g/dl (6.4-8.2)
[2016-10-12] MEDS: THIAMINE HCL 100 MG TABLET (FP) PO SCH (21:36)
[2016-10-12] MEDS: diphenhydrAMINE HCL 50 MG CAPSULE PO PRN (21:36)
[2016-10-13] MEDS: metFORMIN HCL 500 MG TABLET (FP) PO SCH ×2 (06:19→16:45)
[2016-10-13] MEDS: CARVEDILOL 3.125 MG TABLET (FP) PO SCH ×2 (10:17→21:45)
[2016-10-13] MEDS: PRENATAL VITAMINS W/ FOLIC ACID TABLET (FP) PO SCH (10:17)
[2016-10-13] MEDS: amLODIPine BESYLATE 10 MG TABLET (FP) PO SCH (10:17)
[2016-10-13] MEDS: HYDROCHLOROTHIAZIDE 25 MG TABLET (FP) PO SCH (10:17)
--- NOTE | 2016-10-13 12:30 | PN ---
S Progress Note Note: Vital Signs Temperature 97.4 F L 10/13/16 07:02 Pulse Rate 84 10/13/16 07:02 Respiratory Rate 18 10/13/16 07:02 Blood Pressure 149/85 10/13/16 07:02 O2 Sat by Pulse Oximetry (%) will add lisinopril 10 mgs po daily,bp monitoring
[2016-10-13] MEDS: THIAMINE HCL 100 MG TABLET (FP) PO SCH (21:45)
[2016-10-13] MEDS: diphenhydrAMINE HCL 50 MG CAPSULE PO PRN (21:45)
[2016-10-14] MEDS: diphenhydrAMINE HCL 50 MG CAPSULE PO PRN ×2 (01:55→21:30)
[2016-10-14] MEDS: metFORMIN HCL 500 MG TABLET (FP) PO SCH ×2 (06:26→16:54)
[2016-10-14] MEDS: HYDROCHLOROTHIAZIDE 25 MG TABLET (FP) PO SCH (10:19)
[2016-10-14] MEDS: CARVEDILOL 3.125 MG TABLET (FP) PO SCH ×2 (10:19→21:29)
[2016-10-14] MEDS: LISINOPRIL 10 MG TABLET (FP) PO SCH (10:19)
[2016-10-14] MEDS: amLODIPine BESYLATE 10 MG TABLET (FP) PO SCH (10:19)
[2016-10-14] MEDS: PRENATAL VITAMINS W/ FOLIC ACID TABLET (FP) PO SCH (10:20)
[2016-10-14] MEDS: THIAMINE HCL 100 MG TABLET (FP) PO SCH (21:29)
[2016-10-15] MEDS: metFORMIN HCL 500 MG TABLET (FP) PO SCH ×2 (06:48→16:44)
[2016-10-15] MEDS: amLODIPine BESYLATE 10 MG TABLET (FP) PO SCH (10:34)
[2016-10-15] MEDS: CARVEDILOL 3.125 MG TABLET (FP) PO SCH ×2 (10:34→21:32)
[2016-10-15] MEDS: LISINOPRIL 10 MG TABLET (FP) PO SCH (10:34)
[2016-10-15] MEDS: PRENATAL VITAMINS W/ FOLIC ACID TABLET (FP) PO SCH (10:34)
[2016-10-15] MEDS: HYDROCHLOROTHIAZIDE 25 MG TABLET (FP) PO SCH (10:34)
[2016-10-15] MEDS: MAG HYDROX/AL HYDROX/SIMETH 30 ML UNIT-DOSE CUP PO PRN (10:34)
[2016-10-15] MEDS: HYDROCORTISONE 0.5% TOPICAL OINTMENT TUBE TP PRN (10:35)
[2016-10-15] MEDS: THIAMINE HCL 100 MG TABLET (FP) PO SCH (21:32)
[2016-10-15] MEDS: diphenhydrAMINE HCL 50 MG CAPSULE PO PRN (21:33)
[2016-10-16] MEDS: metFORMIN HCL 500 MG TABLET (FP) PO SCH (06:49)
[2016-10-16] MEDS: amLODIPine BESYLATE 10 MG TABLET (FP) PO SCH (10:10)
[2016-10-16] MEDS: LISINOPRIL 10 MG TABLET (FP) PO SCH (10:10)
[2016-10-16] MEDS: HYDROCHLOROTHIAZIDE 25 MG TABLET (FP) PO SCH (10:10)
[2016-10-16] MEDS: CARVEDILOL 3.125 MG TABLET (FP) PO SCH ×2 (10:10→21:37)
[2016-10-16] MEDS: PRENATAL VITAMINS W/ FOLIC ACID TABLET (FP) PO SCH (10:10)
[2016-10-16] MEDS: diphenhydrAMINE HCL 50 MG CAPSULE PO PRN (21:37)
[2016-10-16] MEDS: THIAMINE HCL 100 MG TABLET (FP) PO SCH (21:37)
[2016-10-17] MEDS: metFORMIN HCL 500 MG TABLET (FP) PO SCH (06:26)
[2016-10-17] MEDS: CARVEDILOL 3.125 MG TABLET (FP) PO SCH ×2 (10:33→21:40)
[2016-10-17] MEDS: amLODIPine BESYLATE 10 MG TABLET (FP) PO SCH (10:33)
[2016-10-17] MEDS: LISINOPRIL 10 MG TABLET (FP) PO SCH (10:33)
[2016-10-17] MEDS: HYDROCHLOROTHIAZIDE 25 MG TABLET (FP) PO SCH (10:33)
[2016-10-17] MEDS: PRENATAL VITAMINS W/ FOLIC ACID TABLET (FP) PO SCH (10:34)
[2016-10-17] MEDS: THIAMINE HCL 100 MG TABLET (FP) PO SCH (21:40)
[2016-10-17] MEDS: diphenhydrAMINE HCL 50 MG CAPSULE PO PRN (21:41)
[2016-10-18] MEDS: metFORMIN HCL 500 MG TABLET (FP) PO SCH (06:40)
[2016-10-18] MEDS: PRENATAL VITAMINS W/ FOLIC ACID TABLET (FP) PO SCH (09:14)
[2016-10-18] MEDS: HYDROCHLOROTHIAZIDE 25 MG TABLET (FP) PO SCH (09:14)
[2016-10-18] MEDS: CARVEDILOL 3.125 MG TABLET (FP) PO SCH ×2 (09:14→21:23)
[2016-10-18] MEDS: MAG HYDROX/AL HYDROX/SIMETH 30 ML UNIT-DOSE CUP PO PRN (09:15)
[2016-10-18] MEDS: amLODIPine BESYLATE 10 MG TABLET (FP) PO SCH (09:15)
[2016-10-18] MEDS: LISINOPRIL 10 MG TABLET (FP) PO SCH (09:15)
[2016-10-18] MEDS: diphenhydrAMINE HCL 50 MG CAPSULE PO PRN (21:23)
[2016-10-18] MEDS: THIAMINE HCL 100 MG TABLET (FP) PO SCH (21:23)
[2016-10-19] MEDS: diphenhydrAMINE HCL 50 MG CAPSULE PO PRN ×2 (01:55→21:41)
[2016-10-19] MEDS: metFORMIN HCL 500 MG TABLET (FP) PO SCH (07:00)
[2016-10-19] MEDS: LISINOPRIL 10 MG TABLET (FP) PO SCH (10:14)
[2016-10-19] MEDS: CARVEDILOL 3.125 MG TABLET (FP) PO SCH ×2 (10:14→21:40)
[2016-10-19] MEDS: HYDROCHLOROTHIAZIDE 25 MG TABLET (FP) PO SCH (10:14)
[2016-10-19] MEDS: amLODIPine BESYLATE 10 MG TABLET (FP) PO SCH (10:14)
[2016-10-19] MEDS: PRENATAL VITAMINS W/ FOLIC ACID TABLET (FP) PO SCH (10:15)
[2016-10-19] MEDS: THIAMINE HCL 100 MG TABLET (FP) PO SCH (21:41)
[2016-10-20] MEDS: metFORMIN HCL 500 MG TABLET (FP) PO SCH (06:04)
[2016-10-20] MEDS: PRENATAL VITAMINS W/ FOLIC ACID TABLET (FP) PO SCH (10:39)
[2016-10-20] MEDS: amLODIPine BESYLATE 10 MG TABLET (FP) PO SCH (10:39)
[2016-10-20] MEDS: HYDROCORTISONE 0.5% TOPICAL OINTMENT TUBE TP PRN ×2 (10:39→21:53)
[2016-10-20] MEDS: HYDROCHLOROTHIAZIDE 25 MG TABLET (FP) PO SCH (10:39)
[2016-10-20] MEDS: CARVEDILOL 3.125 MG TABLET (FP) PO SCH ×2 (10:39→21:51)
[2016-10-20] MEDS: LISINOPRIL 10 MG TABLET (FP) PO SCH (10:40)
[2016-10-20] MEDS: diphenhydrAMINE HCL 50 MG CAPSULE PO PRN (21:52)
[2016-10-20] MEDS: THIAMINE HCL 100 MG TABLET (FP) PO SCH (21:52)
[2016-10-21] MEDS: metFORMIN HCL 500 MG TABLET (FP) PO SCH (06:32)
[2016-10-21 07:10] VITALS: BP 129/87; PULSE 76; TEMP 98
[2016-10-21] MEDS: PRENATAL VITAMINS W/ FOLIC ACID TABLET (FP) PO SCH (10:24)
[2016-10-21] MEDS: amLODIPine BESYLATE 10 MG TABLET (FP) PO SCH (10:24)
[2016-10-21] MEDS: HYDROCHLOROTHIAZIDE 25 MG TABLET (FP) PO SCH (10:24)
[2016-10-21] MEDS: CARVEDILOL 3.125 MG TABLET (FP) PO SCH (10:24)
[2016-10-21] MEDS: LISINOPRIL 10 MG TABLET (FP) PO SCH (10:24)
[2016-10-21] MEDS: HYDROCORTISONE 0.5% TOPICAL OINTMENT TUBE TP PRN (10:25)
--- NOTE | 2016-10-21 13:22 | PN ---
Psychiatric Progress Note Vital Signs: Vital Signs Period Temp Pulse Resp BP Sys/Christina Pulse Ox Last 24 Hr 98.0 F 64-76 18-18 129-153/87-88 Date of Session: 10/21/16 Chief Complaint:: discharge visit HPI: Patient has addressed alcohol, cannabis dependence. ROS: GERD medically managed. Current Medications: Active Medications Generic Name Dose Route Start Last Admin Trade Name Freq PRN Reason Stop Dose Admin Acetaminophen 650 mg 10/06/16 13:41 Tylenol - PO Q4H PRN FEVER OR PAIN Al Hydroxide/Mg Hydroxide 30 ml 10/06/16 13:41 10/18/16 09:15 Mylanta Oral Suspension - PO 30 ml Q6H PRN Administration DYSPEPSIA Amlodipine Besylate 10 mg 10/07/16 10:00 10/21/16 10:24 Norvasc - PO 10 mg DAILY ROSALIO Administration Carvedilol 3.125 mg 10/06/16 22:00 10/21/16 10:24 Coreg - PO 3.125 mg BID ROSALIO Administration Diphenhydramine HCl 50 mg 10/06/16 13:41 10/20/16 21:52 Benadryl - PO 50 mg HSMR1 PRN Administration FOR ITCHING Eucalyptus/Menthol/Phenol/Sorbitol 1 each 10/06/16 13:41 10/17/16 05:51 Cepastat Lozenge - MM 1 each Q4H PRN Administration SORE THROAT Guaifenesin 10 ml 10/06/16 13:41 Robitussin Dm - PO Q6H PRN COUGH Hydrochlorothiazide 25 mg 10/07/16 10:00 10/21/16 10:24 Hctz - PO 25 mg DAILY ROSALIO Administration Hydrocortisone 1 applic 10/06/16 13:43 10/21/16 10:25 Hytone 0.5% Ointment - TP 1 applic BID PRN Administration DRY SKIN Ibuprofen 400 mg 10/06/16 13:41 Motrin - PO Q6H PRN PAIN Lisinopril 10 mg 10/14/16 10:00 10/21/16 10:24 Prinivil PO 10 mg DAILY ROSALIO Administration Loperamide HCl 4 mg 10/06/16 13:41 Imodium - PO Q6H PRN DIARRHEA Magnesium Hydroxide 30 ml 10/06/16 13:41 Milk Of Magnesia - PO DAILY PRN CONSTIPATION Metformin HCl 500 mg 10/17/16 07:00 10/21/16 06:32 Glucophage - PO 500 mg DAILY@0700 ROSALIO Administration Multivit/Folic Acid/Iron 1 tab 10/07/16 10:00 10/21/16 10:24 Vitamins (Sjr) - PO 1 tab DAILY ROSALIO Administration Pseudoephedrine/Triprolidine 1 combo 10/06/16 13:41 Actifed - PO TID PRN NASAL CONGESTION Thiamine HCl 100 mg 10/06/16 22:00 10/20/16 21:52 Vitamin B1 - PO Not Given HS ROSALIO Current Side Effect: No Lab tests ordered: No Lab tests reviewed: Yes Provider note:: Patient has completed today this treatment and met his goals, will conitnue to address his issues at [facility]. Patient gained insights into his addiction and motivated to continue maintain abstinence. Patient is stable for discharge. Total face to face time:: 15 Mental Status Exam - Mental Status Exam Alert and Oriented to: Time, Place, Person Cognitive Function: Good Patient Appearance: Well Groomed Mood: Hopeful Affect: Appropriate, Mood Congruent Patient Behavior: Appropriate, Cooperative Speech Pattern: Clear, Appropriate Voice Loudness: Normal Thought Process: Intact, Goal Oriented Thought Disorder: Not Present Hallucinations: Denies Suicidal Ideation: Denies Homicidal Ideation: Denies Insight/Judgement: Fair Sleep: Fair Appetite: Fair Muscle strength/Tone: Normal Gait/Station: Normal Psychiatric Treatment Plan - Problem List (1) Alcohol dependence Current Visit: No Qualifiers: Complication of substance-induced condition: uncomplicated (2) GERD (gastroesophageal reflux disease) Current Visit: No Qualifiers: Esophagitis presence: esophagitis presence not specified Qualified Code(s): K21.9 - Gastro-esophageal reflux disease without esophagitis (3) Cannabis dependence Current Visit: No
== END 2016-10-21 13:35 | disposition home or self-care (01) | DRG 772 ==
LOC: YASAS 12:12 → Y5N 12:13
PROVIDERS: ADMIT Psychiatry & Neurology Psychiatry; ATTEND Psychiatry & Neurology Psychiatry
PROC: HZ42ZZZ Group Counseling for Substance Abuse Treatment, Cognitive-Behavioral (ICD-10-PCS; principal; 2016-10-06)
DX: F10.20 Alcohol dependence, uncomplicated (principal); F12.20 Cannabis dependence, uncomplicated; K21.9 Gastro-esophageal reflux disease without esophagitis
CPT/HCPCS: 36415; 80053

== ENCOUNTER 2017-01-19 14:06 | Inpatient (IN) | payer OTHER ==
[2017-01-19 15:38] VITALS: BMI 39.5
--- NOTE | 2017-01-19 17:21 | HP ---
CIWA Score - CIWA Score Nausea/Vomitin-No Nausea/No Vomiting Muscle Tremors: 4-Moderate,w/Arms Extend Anxiety: 4-Mod. Anxious/Guarded Agitation: 4-Moderately Restless Paroxysmal Sweats: 1-Minimal Palms Moist Orientation: 0-Oriented Tacttile Disturbances: 0-None Auditory Disturbances: 0-None Visual Disturbances: 0-None Headache: 2-Mild CIWA-Ar Total Score: 15 Admission ROS BHS - HPI Chief Complaint: withdrawal sx Allergies/Adverse Reactions: Allergies Allergy/AdvReac Type Severity Reaction Status Date / Time penicillin G Allergy Severe Swelling Verified 01/19/17 17:19 History of Present Illness: 46 years old male with long history of alcohol marijuana dependence has hypertension diabetes ii denies mental illness is admitted to detox Exam Limitations: No Limitations - Ebola screening Have you traveled outside of the country in the last 21 days: No Have you had contact with anyone from an Ebola affected area: No Have you been sick,other than usual withdrawal symptoms: No Do you have a fever: No - Review of Systems Constitutional: Weight Stable EENT: reports: No Symptoms Reported Respiratory: reports: No Symptoms reported Cardiac: reports: No Symptoms Reported GI: reports: Nausea, Poor Fluid Intake, Abdominal cramping : reports: No Symptoms Reported Musculoskeletal: reports: Back Pain (fell at age 36), Joint Pain (right hip) Integumentary: reports: Dryness Neuro: reports: Tremors Endocrine: reports: No Symptoms Reported Hematology: reports: No Symptoms Reported Psychiatric: reports: Judgement Intact, Mood/Affect Appropiate, Orientated x3 Other Systems: Reviewed and Negative Patient History - Patient Medical History Hx Anemia: No Hx Asthma: No Hx Chronic Obstructive Pulmonary Disease (COPD): No Hx Cancer: No Hx Cardiac Disorders: No Hx Congestive Heart Failure: No Hx Hypertension: Yes (on meds) Hx Hypercholesterolemia: No Hx Pacemaker: No HX Cerebrovascular Accident: No Hx Seizures: No Hx Dementia: No Hx Diabetes: Yes (NIDDM) Hx Gastrointestinal Disorders: No (Acid Reflux by history) Hx Liver Disease: No Hx Genitourinary Disorders: No Hx Sexually Transmitted Disorders: No Hx Renal Disease (ESRD): No Hx Thyroid Disease: No Hx Human Immunodeficiency Virus (HIV): No (negative) Hx Hepatitis C: No (negative) Hx Depression: No Hx Suicide Attempt: No (denies) Hx Bipolar Disorder: No Hx Schizophrenia: No - Patient Surgical History Past Surgical History: No Hx Neurologic Surgery: No Hx Cataract Extraction: No Hx Cardiac Surgery: No Hx Lung Surgery: No Hx Breast Surgery: No Hx Breast Biopsy: No Hx Abdominal Surgery: No Hx Appendectomy: No Hx Cholecystectomy: No Hx Genitourinary Surgery: No Hx Orthopedic Surgery: No - PPD History Previous Implant?: Yes Documented Results: Negative w/proof Implanted On Prior [facility] Admission?: Yes Date: 10/04/16 Results: 0 mm. PPD to be Administered?: No - Smoking Cessation Smoking history: Former smoker Have you smoked in the past 12 months: No If you are a former smoker, when did you quit?: 09/2016 Cigars Per Day: 0 Hx Chewing Tobacco Use: No Initiated information on smoking cessation: No - Substance & Tx. History Hx Alcohol Use: Yes Hx Substance Use: Yes Substance Use Type: Alcohol, Marijuana Hx Substance Use Treatment[facility] - Substances Abused Alcohol Route: Oral Frequency: Daily Family Disease History - Family Disease History Family Disease History: Diabetes: Grandparent, Mother (htn), Heart Disease: Mother, Respiratory: Sister (asthma), Other: Father (,alcohol), Mother Admission Physical Exam BHS - Vital Signs Vital Signs: Vital Signs - 24 hr 01/19/17 15:36 Temperature 97.6 F Pulse Rate 83 Respiratory 20 Rate Blood Pressure 168/109 - Physical General Appearance: Yes: Nourished, Appropriately Dressed, Mild Distress, Tremorous, Irritable, Sweating, Anxious HEENTM: Yes: Hearing grossly Normal, Normal ENT Inspection, Normocephalic, Normal Voice Respiratory: Yes: Chest Non-Tender, Lungs Clear, Normal Breath Sounds, No Respiratory Distress, No Accessory Muscle Use Neck: Yes: Supple, Trachea in good position Breast: Yes: Breasts Symetrical Cardiology: Yes: Regular Rhythm, Regular Rate, S1, S2 Abdominal: Yes: Normal Bowel Sounds, Non Tender, Soft Genitourinary: Yes: Within Normal Limits Back: Yes: Normal Inspection Musculoskeletal: Yes: full range of Motion, Gait Steady, Back pain, Muscle Pain (right hip) Extremities: Yes: Normal Inspection, Normal Range of Motion, Non-Tender, Tremors Neurological: Yes: Fully Oriented, Alert, Motor Strength 5/5, Normal Mood/Affect , Normal Response Integumentary: Yes: Dry, Warm Lymphatic: Yes: Within Normal Limits - Diagnostic (1) Alcohol dependence with uncomplicated withdrawal Current Visit: Yes Status: Acute (2) Type II diabetes mellitus Current Visit: Yes Status: Chronic Qualifiers: Diabetes mellitus complication status: without complication Diabetes mellitus medical terminologist insulin use: without medical terminologist use Qualified Code(s): E11.9 - Type 2 diabetes mellitus without complications (3) Essential hypertension Current Visit: Yes Status: Chronic (4) Cannabis dependence, uncomplicated Current Visit: Yes Status: Chronic (5) Chronic back pain Current Visit: Yes Status: Chronic Qualifiers: Back pain location: low back pain Back pain laterality: right Sciatica presence: without sciatica Qualified Code(s): M54.5 - Low back pain; G89.29 - Other chronic pain Cleared for Admission BHS - Detox or Rehab [facility] Level of Care: Medically Managed Detox Regimen/Protocol: Librium S Breath Alcohol Content Breath Alcohol Content: 0 Urine Drug Screen - Results Drug Screen Negative: No Urine Drug Screen Results: THC-Marijuana, TCA-Tricyclic Antidepress
[2017-01-19] MEDS ORDERED: LOPERAMIDE HCL 2 MG CAPSULE PO PRN (17:24)
[2017-01-19] MEDS ORDERED: MAG HYDROX/AL HYDROX/SIMETH 30 ML UNIT-DOSE CUP PO PRN (17:24)
[2017-01-19] MEDS ORDERED: chlordiazePOXIDE HCL 25 MG CAPSULE PO PRN (17:24)
[2017-01-19] MEDS ORDERED: MENTHOL/PHENOL 1 EACH UD MM PRN (17:24)
[2017-01-19] MEDS ORDERED: IBUPROFEN 400 MG TABLET (FP) PO PRN (17:24)
[2017-01-19] MEDS ORDERED: MAGNESIUM HYDROX 2400MG/30ML ORAL SUSPENSION 30 ML CUP PO PRN (17:24)
[2017-01-19] MEDS ORDERED: hydrOXYzine PAMOATE 50 MG CAPSULE (FP) PO PRN (17:24)
[2017-01-19] MEDS ORDERED: ACETAMINOPHEN 325 MG TABLET (FP) PO PRN (17:24)
[2017-01-19] MEDS ORDERED: guaiFENesin/D-METHORPHAN HB 10 ML UNIT-DOSE CUPS PO PRN (17:24)
[2017-01-19] MEDS ORDERED: P-EPHED 60MG/TRIPROLIDI 2.5MG TABLET PO PRN (17:24)
[2017-01-19] MEDS ORDERED: MAGNESIUM CITRATE 300 ML BOTTLE PO PRN (17:24)
[2017-01-19] MEDS: HYDROCHLOROTHIAZIDE 25 MG TABLET (FP) PO SCH (19:37)
[2017-01-19] MEDS: amLODIPine BESYLATE 10 MG TABLET (FP) PO SCH (19:38)
[2017-01-19] MEDS: LISINOPRIL 10 MG TABLET (FP) PO SCH (19:38)
[2017-01-19 20:59] LABS: URINE APPEARANCE SLCLOUDY; URINE BILIRUBIN NEGATIVE (NEGATIVE); URINE BLOOD NEGATIVE (NEGATIVE); URINE COLOR DKYELLOW; URINE GLUCOSE (UA) NEGATIVE (NEGATIVE); URINE KETONE NEGATIVE (NEGATIVE); URINE LEUK ESTERASE NEGATIVE (NEGATIVE); URINE NITRITE NEGATIVE (NEGATIVE); URINE UROBILINOGEN NEGATIVE mg/dL (0.2-1.0)
[2017-01-19 21:10] LABS: URINE PROTEIN 1+ (NEGATIVE)
[2017-01-19 21:19] LABS: URINE BACTERIA RARE /hpf (NONE SEEN); URINE MUCUS FEW; URINE RBC 2 /hpf (0-3); URINE WBC 5 /hpf (3-5)
[2017-01-19] MEDS: THIAMINE HCL 100 MG TABLET (FP) PO SCH (22:16)
[2017-01-19] MEDS: chlordiazePOXIDE HCL 25 MG CAPSULE PO SCH (22:16)
[2017-01-19] MEDS: diphenhydrAMINE HCL 50 MG CAPSULE PO PRN (22:16)
[2017-01-19] MEDS: MINERAL OIL/PETROLAT/WATER TOPICAL CREAM 113 GM JAR TP SCH (22:18)
[2017-01-19] MEDS: LIDOCAINE PATCH REMOVAL MC SCH (22:41)
[2017-01-20] MEDS: chlordiazePOXIDE HCL 25 MG CAPSULE PO SCH ×4 (06:14→22:14)
[2017-01-20] MEDS: metFORMIN HCL 500 MG TABLET (FP) PO SCH (06:14)
[2017-01-20 10:19] LABS: MCH 29.1 pg (25.7-33.7); MCHC 33.8 g/dl (32.0-35.9); MEAN PLT VOLUME 8.9 fl (7.5-11.1); PLATELET COUNT 178 K/MM3 (134-434); RDW 13.9 % (11.9-15.9); WHITE BLOOD COUNT 3.2 K/mm3 (4.0-10.0)
[2017-01-20 10:43] LABS: ALBUMIN 3.6 g/dl (3.4-5.0); ALK PHOS 115 U/L (45-117); ANION GAP 7 (8-16); BILIRUBIN,TOTAL 0.8 mg/dL (0.2-1.0); CALCIUM 9.4 mg/dL (8.5-10.1); CO2 32 mmol/L (21-32); CREATININE 1.2 mg/dL (0.7-1.3); GLUCOSE,RANDOM 104 mg/dL (74-106); SGOT/AST 14 U/L (15-37); SGPT/ALT 32 U/L (12-78); TOT PROT 7.3 g/dl (6.4-8.2)
[2017-01-20] MEDS: HYDROCHLOROTHIAZIDE 25 MG TABLET (FP) PO SCH (10:57)
[2017-01-20] MEDS: amLODIPine BESYLATE 10 MG TABLET (FP) PO SCH (10:57)
[2017-01-20] MEDS: PRENATAL VITAMINS W/ FOLIC ACID TABLET (FP) PO SCH (10:57)
[2017-01-20] MEDS: CYCLOBENZAPRINE HCL 10 MG TABLET (FP) PO PRN ×2 (10:57→22:14)
[2017-01-20] MEDS: LISINOPRIL 10 MG TABLET (FP) PO SCH (10:58)
[2017-01-20] MEDS: LIDOCAINE 5% TOPICAL PATCH TP SCH (11:00)
--- NOTE | 2017-01-20 11:58 | PN ---
S CIWA - CIWA Score Nausea/Vomitin Muscle Tremors: 3 Anxiety: 3 Agitation: 2 Paroxysmal Sweats: 1-Minimal Palms Moist Orientation: 0-Oriented Tacttile Disturbances: 1-Very Mild Itch/Numbness Auditory Disturbances: 1-Very Mild Visual Disturbances: 0-None Headache: 2-Mild CIWA-Ar Total Score: 16 S Progress Note (SOAP) Subjective: ALERT,IRRITABLE,ANXIOUS,INTERRUPTED ,TREMOR Objective: 01/20/17 11:56 Vital Signs Temperature 98.1 F 01/20/17 11:08 Pulse Rate 94 H 01/20/17 11:08 Respiratory Rate 20 01/20/17 11:08 Blood Pressure 130/93 01/20/17 11:08 O2 Sat by Pulse Oximetry (%) EKG NSR Laboratory Last Values WBC 3.2 K/mm3 (4.0-10.0) L 01/20/17 07:00 RBC 4.63 M/mm3 (4.00-5.60) 01/20/17 07:00 Hgb 13.5 GM/dL (11.7-16.9) 01/20/17 07:00 Hct 39.9 % (35.4-49) 01/20/17 07:00 MCV 86.0 fl (80-96) 01/20/17 07:00 MCH 29.1 pg (25.7-33.7) 01/20/17 07:00 MCHC 33.8 g/dl (32.0-35.9) 01/20/17 07:00 RDW 13.9 % (11.9-15.9) 01/20/17 07:00 Plt Count 178 K/MM3 (134-434) 01/20/17 07:00 MPV 8.9 fl (7.5-11.1) 01/20/17 07:00 Sodium 139 mmol/L (136-145) 01/20/17 07:00 Potassium 3.9 mmol/L (3.5-5.1) 01/20/17 07:00 Chloride 100 mmol/L (98-107) 01/20/17 07:00 Carbon Dioxide 32 mmol/L (21-32) 01/20/17 07:00 Anion Gap 7 (8-16) L 01/20/17 07:00 BUN 9 mg/dL (7-18) 01/20/17 07:00 Creatinine 1.2 mg/dL (0.7-1.3) 01/20/17 07:00 Creat Clearance w eGFR > 60 (>60) 01/20/17 07:00 POC Glucometer 112 UNITS (()) 01/20/17 06:10 Random Glucose 104 mg/dL (74-106) D 01/20/17 07:00 Calcium 9.4 mg/dL (8.5-10.1) 01/20/17 07:00 Total Bilirubin 0.8 mg/dL (0.2-1.0) 01/20/17 07:00 AST 14 U/L (15-37) L D 01/20/17 07:00 ALT 32 U/L (12-78) D 01/20/17 07:00 Alkaline Phosphatase 115 U/L (45-117) 01/20/17 07:00 Total Protein 7.3 g/dl (6.4-8.2) 01/20/17 07:00 Albumin 3.6 g/dl (3.4-5.0) 01/20/17 07:00 Urine Color Dkyellow 01/19/17 20:47 Urine Appearance Slcloudy 01/19/17 20:47 Urine pH 7.0 (5.0-8.0) D 01/19/17 20:47 Ur Specific [place] 1.020 (1.005-1.025) 01/19/17 20:47 Urine Protein 1+ (NEGATIVE) H 01/19/17 20:47 Urine Glucose (UA) Negative (NEGATIVE) 01/19/17 20:47 Urine Ketones Negative (NEGATIVE) 01/19/17 20:47 Urine Blood Negative (NEGATIVE) 01/19/17 20:47 Urine Nitrite Negative (NEGATIVE) 01/19/17 20:47 Urine Bilirubin Negative (NEGATIVE) 01/19/17 20:47 Urine Urobilinogen Negative mg/dL (0.2-1.0) 01/19/17 20:47 Ur Leukocyte Esterase Negative (NEGATIVE) 01/19/17 20:47 Urine RBC 2 /hpf (0-3) 01/19/17 20:47 Urine WBC 5 /hpf (3-5) 01/19/17 20:47 Ur Epithelial Cells Rare /hpf (FEW) 01/19/17 20:47 Urine Bacteria Rare /hpf (NONE SEEN) 01/19/17 20:47 Urine Mucus Few 01/19/17 20:47 RPR Titer Nonreactive (NONREACTIVE) 01/20/17 07:00 Assessment: 01/20/17 11:57 WITHDRAWAL SYMPTOM Plan: CONTINUE DETOX
[2017-01-20] MEDS: THIAMINE HCL 100 MG TABLET (FP) PO SCH (22:14)
[2017-01-20] MEDS: diphenhydrAMINE HCL 50 MG CAPSULE PO PRN (22:15)
[2017-01-20] MEDS: LIDOCAINE PATCH REMOVAL MC SCH (22:31)
[2017-01-20] MEDS: MINERAL OIL/PETROLAT/WATER TOPICAL CREAM 113 GM JAR TP SCH (22:31)
[2017-01-21] MEDS: metFORMIN HCL 500 MG TABLET (FP) PO SCH (06:49)
[2017-01-21] MEDS: chlordiazePOXIDE HCL 25 MG CAPSULE PO SCH ×3 (06:49→17:33)
[2017-01-21] MEDS: amLODIPine BESYLATE 10 MG TABLET (FP) PO SCH (10:48)
[2017-01-21] MEDS: HYDROCHLOROTHIAZIDE 25 MG TABLET (FP) PO SCH (10:48)
[2017-01-21] MEDS: PRENATAL VITAMINS W/ FOLIC ACID TABLET (FP) PO SCH (10:49)
[2017-01-21] MEDS: LIDOCAINE 5% TOPICAL PATCH TP SCH (10:49)
[2017-01-21] MEDS: LISINOPRIL 10 MG TABLET (FP) PO SCH (10:50)
--- NOTE | 2017-01-21 11:47 | PN ---
S CIWA - CIWA Score Nausea/Vomitin Muscle Tremors: 4-Moderate,w/Arms Extend Anxiety: 4-Mod. Anxious/Guarded Agitation: 4-Moderately Restless Paroxysmal Sweats: 3 Orientation: 0-Oriented Tacttile Disturbances: 1-Very Mild Itch/Numbness Auditory Disturbances: 0-None Visual Disturbances: 0-None Headache: 1-Very Mild CIWA-Ar Total Score: 20 BHS Progress Note (SOAP) Subjective: nausea, sweats, interrupted sleep, anxiety, tremors Objective: 01/21/17 11:46 Vital Signs - 8 hr 01/21/17 01/21/17 06:37 10:00 Temperature 98 F 98.2 F Pulse Rate 85 101 H Respiratory 18 20 Rate Blood Pressure 120/87 125/65 Laboratory Tests 01/19/17 01/19/17 01/19/17 07:00 17:35 20:47 WBC RBC Hgb Hct MCV MCH MCHC RDW Plt Count MPV Sodium Potassium Chloride Carbon Dioxide Anion Gap BUN Creatinine Creat Clearance w eGFR POC Glucometer 87 Random Glucose Calcium Total Bilirubin AST ALT Alkaline Phosphatase Total Protein Albumin Urine Color Dkyellow Urine Appearance Slcloudy Urine pH 7.0 D Ur Specific [place] 1.020 Urine Protein 1+ H Urine Glucose (UA) Negative Urine Ketones Negative Urine Blood Negative Urine Nitrite Negative Urine Bilirubin Negative Urine Urobilinogen Negative Ur Leukocyte Esterase Negative Urine RBC 2 Urine WBC 5 Ur Epithelial Cells Rare Urine Bacteria Rare Urine Mucus Few RPR Titer Hepatitis C Antibody 0.1 01/20/17 01/20/17 01/20/17 06:10 07:00 07:00 WBC 3.2 L RBC 4.63 Hgb 13.5 Hct 39.9 MCV 86.0 MCH 29.1 MCHC 33.8 RDW 13.9 Plt Count 178 MPV 8.9 Sodium 139 Potassium 3.9 Chloride 100 Carbon Dioxide 32 Anion Gap 7 L BUN 9 Creatinine 1.2 Creat Clearance w eGFR > 60 POC Glucometer 112 Random Glucose 104 D Calcium 9.4 Total Bilirubin 0.8 AST 14 L D ALT 32 D Alkaline Phosphatase 115 Total Protein 7.3 Albumin 3.6 Urine Color Urine Appearance Urine pH Ur Specific [place] Urine Protein Urine Glucose (UA) Urine Ketones Urine Blood Urine Nitrite Urine Bilirubin Urine Urobilinogen Ur Leukocyte Esterase Urine RBC Urine WBC Ur Epithelial Cells Urine Bacteria Urine Mucus RPR Titer Hepatitis C Antibody 01/20/17 01/21/17 07:00 06:11 WBC RBC Hgb Hct MCV MCH MCHC RDW Plt Count MPV Sodium Potassium Chloride Carbon Dioxide Anion Gap BUN Creatinine Creat Clearance w eGFR POC Glucometer 183 Random Glucose Calcium Total Bilirubin AST ALT Alkaline Phosphatase Total Protein Albumin Urine Color Urine Appearance Urine pH Ur Specific [place] Urine Protein Urine Glucose (UA) Urine Ketones Urine Blood Urine Nitrite Urine Bilirubin Urine Urobilinogen Ur Leukocyte Esterase Urine RBC Urine WBC Ur Epithelial Cells Urine Bacteria Urine Mucus RPR Titer Nonreactive Hepatitis C Antibody Assessment: 01/21/17 11:46 withdrawal sx, Plan: cont detox, fluids, encourage ambulation
[2017-01-21] MEDS: diphenhydrAMINE HCL 50 MG CAPSULE PO PRN (22:19)
[2017-01-21] MEDS: THIAMINE HCL 100 MG TABLET (FP) PO SCH (22:19)
[2017-01-21] MEDS: chlordiazePOXIDE 5 MG CAPSULE PO SCH (22:19)
[2017-01-21] MEDS: CYCLOBENZAPRINE HCL 10 MG TABLET (FP) PO PRN (22:19)
[2017-01-21] MEDS: LIDOCAINE PATCH REMOVAL MC SCH (22:34)
[2017-01-21] MEDS: MINERAL OIL/PETROLAT/WATER TOPICAL CREAM 113 GM JAR TP SCH (22:35)
[2017-01-22] MEDS: chlordiazePOXIDE 5 MG CAPSULE PO SCH ×3 (06:13→19:28)
[2017-01-22] MEDS: metFORMIN HCL 500 MG TABLET (FP) PO SCH (06:13)
[2017-01-22] MEDS: PRENATAL VITAMINS W/ FOLIC ACID TABLET (FP) PO SCH (11:09)
[2017-01-22] MEDS: HYDROCHLOROTHIAZIDE 25 MG TABLET (FP) PO SCH (11:09)
[2017-01-22] MEDS: amLODIPine BESYLATE 10 MG TABLET (FP) PO SCH (11:09)
[2017-01-22] MEDS: LISINOPRIL 10 MG TABLET (FP) PO SCH (11:09)
[2017-01-22] MEDS: LIDOCAINE 5% TOPICAL PATCH TP SCH (11:10)
--- NOTE | 2017-01-22 11:36 | EKG ---
Test Reason : Blood Pressure : / mmHG Vent. Rate : 075 BPM Atrial Rate : 075 BPM P-R Int : 168 ms QRS Dur : 106 ms QT Int : 416 ms P-R-T Axes : 037 024 014 degrees QTc Int : 464 ms NORMAL SINUS RHYTHM POSSIBLE LEFT ATRIAL ENLARGEMENT BORDERLINE ECG WHEN COMPARED WITH ECG OF 02-OCT-2016 13:33, NO SIGNIFICANT CHANGE WAS FOUND Confirmed by LILLY NAM MD ([id number]) on 01/22/2017 11:36:46 AM Referred By: Confirmed By:LILLY NAM MD
--- NOTE | 2017-01-22 13:34 | PN ---
BHS Progress Note (SOAP) Subjective: nausa, sweats, interrupted sleep, anxiety, tremors Objective: 01/22/17 13:33 Vital Signs - 24 hr 01/21/17 01/21/17 01/21/17 15:59 17:10 22:00 Temperature 98.1 F 99 F 98.4 F Pulse Rate 105 H 92 H 109 H Respiratory 20 20 20 Rate Blood Pressure 139/87 146/71 153/90 01/22/17 01/22/17 01/22/17 00:30 03:30 06:40 Temperature 97.0 F L Pulse Rate 100 H Respiratory 18 18 18 Rate Blood Pressure 147/96 01/22/17 09:35 Temperature 96.7 F L Pulse Rate 103 H Respiratory 18 Rate Blood Pressure 136/93 Laboratory Tests 01/19/17 01/19/17 01/19/17 07:00 17:35 20:47 WBC RBC Hgb Hct MCV MCH MCHC RDW Plt Count MPV Sodium Potassium Chloride Carbon Dioxide Anion Gap BUN Creatinine Creat Clearance w eGFR POC Glucometer 87 Random Glucose Calcium Total Bilirubin AST ALT Alkaline Phosphatase Total Protein Albumin Urine Color Dkyellow Urine Appearance Slcloudy Urine pH 7.0 D Ur Specific [place] 1.020 Urine Protein 1+ H Urine Glucose (UA) Negative Urine Ketones Negative Urine Blood Negative Urine Nitrite Negative Urine Bilirubin Negative Urine Urobilinogen Negative Ur Leukocyte Esterase Negative Urine RBC 2 Urine WBC 5 Ur Epithelial Cells Rare Urine Bacteria Rare Urine Mucus Few RPR Titer Hepatitis C Antibody 0.1 01/20/17 01/20/17 01/20/17 06:10 07:00 07:00 WBC 3.2 L RBC 4.63 Hgb 13.5 Hct 39.9 MCV 86.0 MCH 29.1 MCHC 33.8 RDW 13.9 Plt Count 178 MPV 8.9 Sodium 139 Potassium 3.9 Chloride 100 Carbon Dioxide 32 Anion Gap 7 L BUN 9 Creatinine 1.2 Creat Clearance w eGFR > 60 POC Glucometer 112 Random Glucose 104 D Calcium 9.4 Total Bilirubin 0.8 AST 14 L D ALT 32 D Alkaline Phosphatase 115 Total Protein 7.3 Albumin 3.6 Urine Color Urine Appearance Urine pH Ur Specific [place] Urine Protein Urine Glucose (UA) Urine Ketones Urine Blood Urine Nitrite Urine Bilirubin Urine Urobilinogen Ur Leukocyte Esterase Urine RBC Urine WBC Ur Epithelial Cells Urine Bacteria Urine Mucus RPR Titer Hepatitis C Antibody 01/20/17 01/21/17 01/22/17 07:00 06:11 06:12 WBC RBC Hgb Hct MCV MCH MCHC RDW Plt Count MPV Sodium Potassium Chloride Carbon Dioxide Anion Gap BUN Creatinine Creat Clearance w eGFR POC Glucometer 183 136 Random Glucose Calcium Total Bilirubin AST ALT Alkaline Phosphatase Total Protein Albumin Urine Color Urine Appearance Urine pH Ur Specific [place] Urine Protein Urine Glucose (UA) Urine Ketones Urine Blood Urine Nitrite Urine Bilirubin Urine Urobilinogen Ur Leukocyte Esterase Urine RBC Urine WBC Ur Epithelial Cells Urine Bacteria Urine Mucus RPR Titer Nonreactive Hepatitis C Antibody Assessment: 01/22/17 13:33 withdrawal sx, htn, tachycardia Plan: cont detox, cont bp meds, fluids, low salt diet
[2017-01-22] MEDS: cloNIDine HCL 0.1 MG TABLET PO SCH ×2 (15:30→23:25)
[2017-01-22] MEDS: METOPROLOL TARTRATE 25 MG TABLET (FP) PO SCH ×2 (19:28→23:25)
[2017-01-22] MEDS: chlordiazePOXIDE HCL 10 MG CAPSULE PO SCH (23:25)
[2017-01-22] MEDS: THIAMINE HCL 100 MG TABLET (FP) PO SCH (23:25)
[2017-01-22] MEDS: LIDOCAINE PATCH REMOVAL MC SCH (23:26)
[2017-01-22] MEDS: MINERAL OIL/PETROLAT/WATER TOPICAL CREAM 113 GM JAR TP SCH (23:26)
[2017-01-23] MEDS: chlordiazePOXIDE HCL 10 MG CAPSULE PO SCH (05:45)
[2017-01-23] MEDS ORDERED: cloNIDine HCL 0.1 MG TABLET PO ONE (06:15)
[2017-01-23] MEDS: metFORMIN HCL 500 MG TABLET (FP) PO SCH (07:02)
[2017-01-23] MEDS ORDERED: chlordiazePOXIDE 5 MG CAPSULE ONE (09:18)
--- NOTE | 2017-01-23 09:49 | DS ---
[facility] Detox Discharge Summary Admission Date: 01/19/17 Discharge Date: 01/23/17 - History Present History: Alcohol Dependence, Cannabis Dependence Additional Comments: FOLLOW UP WITH AFTER CARE PROGRAM ARRANGEMENT Pertinent Past History: TYPE 2 DM ESSENTIAL HYPERTENSION CHRONIC BACK PAIN - Physical Exam Results Vital Signs: Vital Signs Temperature 97.9 F 01/23/17 06:00 Pulse Rate 89 01/23/17 07:30 Respiratory Rate 18 01/23/17 07:30 Blood Pressure 157/90 01/23/17 07:30 O2 Sat by Pulse Oximetry (%) Pertinent Admission Physical Exam Findings: WITHDRAWAL SYMPTOM - Treatment Hospital Course: Detox Protocol Followed, Detoxed Safely, Responded well, Discharged Condition Good Patient has Accepted a Rehab Referral to: [facility] - Medication Discharge Medications: Ambulatory Orders Amlodipine Besylate [Norvasc -] 10 mg PO DAILY #30 tablet 04/16/14 Hydrochlorothiazide 25 mg PO DAILY #30 tab 10/21/16 Lisinopril [Prinivil] 10 mg PO DAILY #30 tablet 10/21/16 Metformin HCl [Glucophage -] 500 mg PO DAILY@0700 #30 tablet 10/21/16 - Diagnosis (1) Alcohol dependence with uncomplicated withdrawal Current Visit: Yes Status: Acute (2) Cannabis dependence, uncomplicated Current Visit: Yes Status: Chronic (3) Chronic back pain Current Visit: Yes Status: Chronic Qualifiers: Back pain location: low back pain Back pain laterality: right Sciatica presence: without sciatica Qualified Code(s): M54.5 - Low back pain; G89.29 - Other chronic pain (4) Essential hypertension Current Visit: Yes Status: Chronic (5) Type II diabetes mellitus Current Visit: Yes Status: Chronic Qualifiers: Diabetes mellitus complication status: without complication Diabetes mellitus terminologist insulin use: without terminologist use Qualified Code(s): E11.9 - Type 2 diabetes mellitus without complications (6) Nicotine dependence Current Visit: No Status: Chronic Qualifiers: Nicotine product type: cigarettes Substance use status: uncomplicated Qualified Code(s): F17.210 - Nicotine dependence, cigarettes, uncomplicated (7) Obesity Current Visit: No Status: Chronic Qualifiers: Obesity type: unspecified obesity type Qualified Code(s): E66.9 - Obesity, unspecified - AMA Did Patient Leave Against Medical Advice: No
[2017-01-23 10:23] VITALS: BP 156/71; PULSE 91; TEMP 97.5
== END 2017-01-23 10:03 | disposition other institution (70) | DRG 775 ==
LOC: YASAS 14:06 → Y6N 18:40
PROVIDERS: ADMIT Internal Medicine Addiction Medicine; ATTEND Internal Medicine Addiction Medicine
PROC: HZ2ZZZZ Detoxification Services for Substance Abuse Treatment (ICD-10-PCS; principal; 2017-01-23)
DX: F10.230 Alcohol dependence with withdrawal, uncomplicated (principal); F12.20 Cannabis dependence, uncomplicated; F17.210 Nicotine dependence, cigarettes, uncomplicated; I10 Essential (primary) hypertension; E11.9 Type 2 diabetes mellitus without complications; Z79.84 Long term (current) use of oral hypoglycemic drugs; M54.5 Low back pain; G89.29 Other chronic pain
CPT/HCPCS: 36415; 80053; 81003; 81015; 85027; 86593; 86803; 93005; 93010

== ENCOUNTER 2018-01-12 12:30 | Inpatient (IN) | payer OTHER ==
[2018-01-12 13:13] VITALS: BMI 38.1
--- NOTE | 2018-01-12 18:00 | HP ---
CIWA Score - CIWA Score Nausea/Vomitin Muscle Tremors: 4-Moderate,w/Arms Extend Anxiety: 4-Mod. Anxious/Guarded Agitation: 3 Paroxysmal Sweats: 2 Orientation: 0-Oriented Tacttile Disturbances: 0-None Auditory Disturbances: 0-None Visual Disturbances: 0-None Headache: 0-None Present CIWA-Ar Total Score: 16 Admission ROS BHS - HPI Chief Complaint: ALCOHOL WITHDRAWAL SX Allergies/Adverse Reactions: Allergies Allergy/AdvReac Type Severity Reaction Status Date / Time penicillin G Allergy Severe Swelling Verified 01/19/17 17:19 red meat Allergy Uncoded 01/12/18 14:27 History of Present Illness: PT IS A 47 Y/O AA/MALE WITH A HX OF ALCOHOL AND MARIJUANA DEPENDENCE SEEKING DETOX TX. PT HAS PREVIOUS TREATMENT HX. Exam Limitations: No Limitations - Ebola screening Have you traveled outside of the country in the last 21 days: No (N) Have you had contact with anyone from an Ebola affected area: No Have you been sick,other than usual withdrawal symptoms: No Do you have a fever: No - Review of Systems Constitutional: Chills, Night Sweats, Changes in sleep EENT: reports: Blurred Vision Respiratory: reports: No Symptoms reported Cardiac: reports: No Symptoms Reported GI: reports: Diarrhea, Nausea, Poor Fluid Intake : reports: No Symptoms Reported Musculoskeletal: reports: Back Pain (LBP) Integumentary: reports: Rash (HX ECZEMA--HYDROCORTISONE CREAM) Neuro: reports: Headache, Tremors, Unsteady Gait Endocrine: reports: No Symptoms Reported Hematology: reports: No Symptoms Reported Psychiatric: reports: Orientated x3 Other Systems: Reviewed and Negative Patient History - Patient Medical History Hx Anemia: No Hx Asthma: No Hx Chronic Obstructive Pulmonary Disease (COPD): No Hx Cancer: No Hx Cardiac Disorders: No Hx Congestive Heart Failure: No Hx Hypertension: Yes (on meds.-AMLODOPINE AND HCTZ) Hx Hypercholesterolemia: No Hx Pacemaker: No HX Cerebrovascular Accident: No Hx Seizures: No Hx Dementia: No Hx Diabetes: Yes (diet controlled-BGM 183 MG/DL) Hx Gastrointestinal Disorders: No Hx Liver Disease: No Hx Genitourinary Disorders: No Hx Sexually Transmitted Disorders: No (DENIES) Hx Renal Disease (ESRD): No Hx Thyroid Disease: No Hx Human Immunodeficiency Virus (HIV): No (NEGATIVE HX) Hx Hepatitis C: No (NEGATIVE HX) Hx Depression: No Hx Suicide Attempt: No (DENIES S/I) Hx Bipolar Disorder: No Hx Schizophrenia: No - Patient Surgical History Past Surgical History: No Hx Neurologic Surgery: No Hx Cataract Extraction: No Hx Cardiac Surgery: No Hx Lung Surgery: No Hx Breast Surgery: No Hx Breast Biopsy: No Hx Abdominal Surgery: No Hx Appendectomy: No Hx Cholecystectomy: No Hx Genitourinary Surgery: No Hx Section: No Hx Orthopedic Surgery: No Anesthesia Reaction: No - PPD History Previous Implant?: Yes Documented Results: Negative w/o proof Implanted On Prior R Admission?: Yes Date: 10/04/16 Results: 0 mm. - Smoking Cessation Smoking history: Former smoker Have you smoked in the past 12 months: Yes If you are a former smoker, when did you quit?: 09/2016 Cigars Per Day: 0 Hx Chewing Tobacco Use: No Initiated information on smoking cessation: No - Substances Abused Alcohol Route: Oral Frequency: Daily Amount used: 1 pint cognac Age of first use: 18 Date of Last Use: 01/11/18 Marijuana/Hashish Route: Smoking Frequency: Daily Amount used: 3 bags Age of first use: 20 Date of Last Use: 01/11/18 Family Disease History - Family Disease History Family Disease History: Diabetes: Grandparent, Mother (htn), Heart Disease: Mother, Respiratory: Sister (asthma), Other: Father (,alcohol), Mother Admission Physical Exam BHS - Vital Signs Vital Signs: Vital Signs - 24 hr 01/12/18 13:11 Temperature 98.9 F Pulse Rate 71 Respiratory 20 Rate Blood Pressure 167/95 - Physical General Appearance: Yes: Moderate Distress, Obese, Irritable, Anxious HEENTM: Yes: EOMI, Normocephalic, CATINA, Pharynx Normal Respiratory: Yes: Chest Non-Tender, Lungs Clear, Normal Breath Sounds Neck: Yes: No masses,lesions,Nodules, Supple, Trachea in good position Breast: Yes: Breast Exam Deferred Cardiology: Yes: Regular Rhythm, Regular Rate, S1, S2 Abdominal: Yes: Normal Bowel Sounds, Non Tender Genitourinary: Yes: Other (N/C) Back: Yes: Within Normal Limits Musculoskeletal: Yes: full range of Motion, Gait Steady Extremities: Yes: Normal Range of Motion, Non-Tender 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, Fully Oriented, Alert, Motor Strength 5/5 Integumentary: Yes: Dry, Warm Lymphatic: Yes: Within Normal Limits - Diagnostic (1) Alcohol dependence with uncomplicated withdrawal Current Visit: Yes Status: Acute (2) GERD (gastroesophageal reflux disease) Current Visit: Yes Status: Acute Qualifiers: Esophagitis presence: esophagitis presence not specified Qualified Code(s) : K21.9 - Gastro-esophageal reflux disease without esophagitis (3) Borderline diabetes mellitus Current Visit: Yes Status: Chronic (4) Cannabis dependence, uncomplicated Current Visit: Yes Status: Chronic (5) Chronic back pain Current Visit: Yes Status: Chronic Qualifiers: Back pain location: low back pain Back pain laterality: right Sciatica presence: without sciatica Qualified Code(s): M54.5 - Low back pain (6) Eczema Current Visit: Yes Status: Chronic Qualifiers: Eczema type: unspecified Qualified Code(s): L30.9 - Dermatitis, unspecified (7) Essential hypertension Current Visit: Yes Status: Chronic (8) Obesity Current Visit: Yes Status: Chronic Qualifiers: Obesity type: unspecified obesity type Cleared for Admission S - Detox or Rehab [facility] Level of Care: Medically Managed Detox Regimen/Protocol: Librium [facility] Breath Alcohol Content Breath Alcohol Content: 0 Urine Drug Screen - Results Drug Screen Negative: No Urine Drug Screen Results: THC-Marijuana
[2018-01-12] MEDS ORDERED: MAG HYDROX/AL HYDROX/SIMETH 30 ML UNIT-DOSE CUP PO PRN (18:07)
[2018-01-12] MEDS ORDERED: MAGNESIUM CITRATE 300 ML BOTTLE PO PRN (18:07)
[2018-01-12] MEDS ORDERED: ACETAMINOPHEN 325 MG TABLET (FP) PO PRN (18:07)
[2018-01-12] MEDS ORDERED: MENTHOL/PHENOL 1 EACH UD MM PRN (18:07)
[2018-01-12] MEDS ORDERED: P-EPHED 60MG/TRIPROLIDI 2.5MG TABLET PO PRN (18:07)
[2018-01-12] MEDS ORDERED: NICOTINE POLACRILEX 2 MG GUM BC PRN (18:07)
[2018-01-12] MEDS ORDERED: MAGNESIUM HYDROX 2400MG/30ML ORAL SUSPENSION 30 ML CUP PO PRN (18:07)
[2018-01-12] MEDS ORDERED: IBUPROFEN 400 MG TABLET (FP) PO PRN (18:07)
[2018-01-12] MEDS ORDERED: LOPERAMIDE HCL 2 MG CAPSULE PO PRN (18:07)
[2018-01-12] MEDS ORDERED: guaiFENesin/D-METHORPHAN HB 10 ML UNIT-DOSE CUPS PO PRN (18:07)
[2018-01-12] MEDS ORDERED: chlordiazePOXIDE HCL 25 MG CAPSULE PO PRN (18:07)
[2018-01-12] MEDS ORDERED: HYDROCHLOROTHIAZIDE 25 MG TABLET (FP) PO SCH (18:45)
[2018-01-12] MEDS: amLODIPine BESYLATE 10 MG TABLET (FP) PO SCH (19:08)
[2018-01-12] MEDS: NICOTINE 14 MG/24 HOURS TOPICAL PATCH TD SCH (19:09)
[2018-01-12] MEDS: chlordiazePOXIDE HCL 25 MG CAPSULE PO SCH (22:06)
[2018-01-12] MEDS: THIAMINE HCL 100 MG TABLET (FP) PO SCH (22:06)
[2018-01-13 00:10] LABS: URINE APPEARANCE CLEAR; URINE BILIRUBIN NEGATIVE (<2.0 mg/dL); URINE COLOR YELLOW; URINE GLUCOSE (UA) 3+ (NEGATIVE); URINE KETONE NEGATIVE (NEGATIVE); URINE LEUK ESTERASE NEGATIVE (NEGATIVE); URINE NITRITE NEGATIVE (NEGATIVE); URINE PROTEIN NEGATIVE (NEGATIVE)
[2018-01-13] MEDS: chlordiazePOXIDE HCL 25 MG CAPSULE PO SCH ×4 (06:01→22:09)
[2018-01-13] MEDS: HYDROCHLOROTHIAZIDE 25 MG TABLET (FP) PO SCH (07:30)
[2018-01-13] MEDS: NICOTINE 14 MG/24 HOURS TOPICAL PATCH TD SCH (10:47)
[2018-01-13] MEDS: PRENATAL VITAMINS W/ FOLIC ACID TABLET (FP) PO SCH (10:47)
[2018-01-13] MEDS: amLODIPine BESYLATE 10 MG TABLET (FP) PO SCH (10:48)
[2018-01-13 10:56] LABS: HEMATOCRIT 41.3 % (35.4-49); HEMOGLOBIN 13.9 GM/dL (11.7-16.9); MCH 28.9 pg (25.7-33.7); MCHC 33.7 g/dl (32.0-35.9); MEAN CELL VOLUME 85.6 fl (80-96); MEAN PLT VOLUME 9.5 fl (7.5-11.1); PLATELET COUNT 182 K/MM3 (134-434); RBC 4.83 M/mm3 (4.00-5.60); RDW 13.6 % (11.9-15.9); WHITE BLOOD COUNT 3.4 K/mm3 (4.0-10.0)
--- NOTE | 2018-01-13 11:28 | PN ---
S CIWA - CIWA Score Nausea/Vomitin Muscle Tremors: 3 Anxiety: 3 Agitation: 2 Paroxysmal Sweats: 1-Minimal Palms Moist Orientation: 0-Oriented Tacttile Disturbances: 1-Very Mild Itch/Numbness Auditory Disturbances: 1-Very Mild Visual Disturbances: 0-None Headache: 2-Mild CIWA-Ar Total Score: 16 BHS Progress Note (SOAP) Subjective: alert,irritable,anxious,interrupted sleep,tremor Objective: 01/13/18 11:26 Vital Signs Temperature 97.9 F 01/13/18 09:54 Pulse Rate 81 01/13/18 09:54 Respiratory Rate 18 01/13/18 09:54 Blood Pressure 156/82 01/13/18 09:54 O2 Sat by Pulse Oximetry (%) ekg nsr,normal ecg qt/qtc 416/452 Laboratory Last Values WBC 3.4 K/mm3 (4.0-10.0) L 01/13/18 07:00 RBC 4.83 M/mm3 (4.00-5.60) 01/13/18 07:00 Hgb 13.9 GM/dL (11.7-16.9) 01/13/18 07:00 Hct 41.3 % (35.4-49) 01/13/18 07:00 MCV 85.6 fl (80-96) 01/13/18 07:00 MCH 28.9 pg (25.7-33.7) 01/13/18 07:00 MCHC 33.7 g/dl (32.0-35.9) 01/13/18 07:00 RDW 13.6 % (11.9-15.9) 01/13/18 07:00 Plt Count 182 K/MM3 (134-434) 01/13/18 07:00 MPV 9.5 fl (7.5-11.1) 01/13/18 07:00 POC Glucometer 183 UNITS (80-120) 01/12/18 14:37 Urine Color Yellow 01/12/18 22:00 Urine Appearance Clear 01/12/18 22:00 Urine pH 6.0 (5.0-8.0) 01/12/18 22:00 Ur Specific [place] 1.021 (1.001-1.035) 01/12/18 22:00 Urine Protein Negative (NEGATIVE) 01/12/18 22:00 Urine Glucose (UA) 3+ (NEGATIVE) H 01/12/18 22:00 Urine Ketones Negative (NEGATIVE) 01/12/18 22:00 Urine Blood Negative (NEGATIVE) 01/12/18 22:00 Urine Nitrite Negative (NEGATIVE) 01/12/18 22:00 Urine Bilirubin Negative (<2.0 mg/dL) 01/12/18 22:00 Urine Urobilinogen 2.0 mg/dL (0.2-1.0) 01/12/18 22:00 Ur Leukocyte Esterase Negative (NEGATIVE) 01/12/18 22:00 Assessment: 01/13/18 11:27 withdrawal symptom Plan: continue detox ,bgm monitoring
[2018-01-13 11:30] LABS: CHLORIDE 102 mmol/L (98-107); POTASSIUM 3.4 mmol/L (3.5-5.1); SODIUM 141 mmol/L (136-145)
[2018-01-13 11:43] LABS: ALBUMIN 3.8 g/dl (3.4-5.0); ALK PHOS 108 U/L (45-117); ANION GAP 9 MMOL/L (8-16); BILIRUBIN,TOTAL 0.6 mg/dL (0.2-1.0); BLOOD UREA NITROGEN 9 mg/dL (7-18); CALCIUM 8.9 mg/dL (8.5-10.1); CO2 30 mmol/L (21-32); GLUCOSE,RANDOM 123 mg/dL (74-106); SGOT/AST 15 U/L (15-37); SGPT/ALT 27 U/L (12-78); TOT PROT 7.4 g/dl (6.4-8.2)
--- NOTE | 2018-01-13 20:20 | EKG ---
Test Reason : Blood Pressure : / mmHG Vent. Rate : 071 BPM Atrial Rate : 071 BPM P-R Int : 154 ms QRS Dur : 110 ms QT Int : 416 ms P-R-T Axes : 051 029 013 degrees QTc Int : 452 ms NORMAL SINUS RHYTHM NORMAL ECG WHEN COMPARED WITH ECG OF 19-JAN-2017 18:47, T WAVE AMPLITUDE HAS DECREASED IN LATERAL LEADS Confirmed by KAL REYNOLDS MD ([id number]) on 01/13/2018 8:20:04 PM Referred By: Confirmed By:KAL REYNOLDS MD
[2018-01-13] MEDS: THIAMINE HCL 100 MG TABLET (FP) PO SCH (22:09)
[2018-01-13] MEDS: MELATONIN 5 MG TABLETS PO PRN (22:10)
[2018-01-14] MEDS: chlordiazePOXIDE HCL 25 MG CAPSULE PO SCH ×3 (06:10→23:51)
[2018-01-14] MEDS: HYDROCHLOROTHIAZIDE 25 MG TABLET (FP) PO SCH (07:00)
--- NOTE | 2018-01-14 11:15 | PN ---
S CIWA - CIWA Score Nausea/Vomitin Muscle Tremors: 3 Anxiety: 3 Agitation: 2 Paroxysmal Sweats: 1-Minimal Palms Moist Orientation: 0-Oriented Tacttile Disturbances: 1-Very Mild Itch/Numbness Auditory Disturbances: 1-Very Mild Visual Disturbances: 0-None Headache: 2-Mild CIWA-Ar Total Score: 16 BHS Progress Note (SOAP) Subjective: alert,irritable,anxious,interrupted sleep,tremor Objective: 01/14/18 11:14 Vital Signs Temperature 98.5 F 01/14/18 09:28 Pulse Rate 101 H 01/14/18 09:28 Respiratory Rate 18 01/14/18 09:28 Blood Pressure 135/91 01/14/18 09:28 O2 Sat by Pulse Oximetry (%) 01/14/18 11:14 Laboratory Last Values WBC 3.4 K/mm3 (4.0-10.0) L 01/13/18 07:00 RBC 4.83 M/mm3 (4.00-5.60) 01/13/18 07:00 Hgb 13.9 GM/dL (11.7-16.9) 01/13/18 07:00 Hct 41.3 % (35.4-49) 01/13/18 07:00 MCV 85.6 fl (80-96) 01/13/18 07:00 MCH 28.9 pg (25.7-33.7) 01/13/18 07:00 MCHC 33.7 g/dl (32.0-35.9) 01/13/18 07:00 RDW 13.6 % (11.9-15.9) 01/13/18 07:00 Plt Count 182 K/MM3 (134-434) 01/13/18 07:00 MPV 9.5 fl (7.5-11.1) 01/13/18 07:00 Sodium 141 mmol/L (136-145) 01/13/18 07:00 Potassium 3.4 mmol/L (3.5-5.1) L 01/13/18 07:00 Chloride 102 mmol/L (98-107) 01/13/18 07:00 Carbon Dioxide 30 mmol/L (21-32) 01/13/18 07:00 Anion Gap 9 MMOL/L (8-16) 01/13/18 07:00 BUN 9 mg/dL (7-18) 01/13/18 07:00 Creatinine 1.0 mg/dL (0.7-1.3) 01/13/18 07:00 Creat Clearance w eGFR > 60 (>60) 01/13/18 07:00 POC Glucometer 136 UNITS (80-120) 01/14/18 07:05 Random Glucose 123 mg/dL (74-106) H 01/13/18 07:00 Calcium 8.9 mg/dL (8.5-10.1) 01/13/18 07:00 Total Bilirubin 0.6 mg/dL (0.2-1.0) 01/13/18 07:00 AST 15 U/L (15-37) 01/13/18 07:00 ALT 27 U/L (12-78) 01/13/18 07:00 Alkaline Phosphatase 108 U/L (45-117) 01/13/18 07:00 Total Protein 7.4 g/dl (6.4-8.2) 01/13/18 07:00 Albumin 3.8 g/dl (3.4-5.0) 01/13/18 07:00 Urine Color Yellow 01/12/18 22:00 Urine Appearance Clear 01/12/18 22:00 Urine pH 6.0 (5.0-8.0) 01/12/18 22:00 Ur Specific [place] 1.021 (1.001-1.035) 01/12/18 22:00 Urine Protein Negative (NEGATIVE) 01/12/18 22:00 Urine Glucose (UA) 3+ (NEGATIVE) H 01/12/18 22:00 Urine Ketones Negative (NEGATIVE) 01/12/18 22:00 Urine Blood Negative (NEGATIVE) 01/12/18 22:00 Urine Nitrite Negative (NEGATIVE) 01/12/18 22:00 Urine Bilirubin Negative (<2.0 mg/dL) 01/12/18 22:00 Urine Urobilinogen 2.0 mg/dL (0.2-1.0) 01/12/18 22:00 Ur Leukocyte Esterase Negative (NEGATIVE) 01/12/18 22:00 RPR Titer Nonreactive (NONREACTIVE) 01/13/18 07:00 Assessment: 01/14/18 11:15 withdrawal symptom Plan: continue detox,k is 3.4,k dur 20 meq po daily,bgm 136,bgm monitoring
[2018-01-14] MEDS: amLODIPine BESYLATE 10 MG TABLET (FP) PO SCH (11:26)
[2018-01-14] MEDS: PRENATAL VITAMINS W/ FOLIC ACID TABLET (FP) PO SCH (11:26)
[2018-01-14] MEDS: POTASSIUM CHLORIDE TABS 20 MEQ TABLET.ER (FP) PO SCH ×2 (11:40→11:44)
[2018-01-14] MEDS: chlordiazePOXIDE 5 MG CAPSULE PO SCH (22:38)
[2018-01-14] MEDS: THIAMINE HCL 100 MG TABLET (FP) PO SCH (22:39)
[2018-01-14] MEDS: HYDROCORTISONE 1% TOPICAL CREAM 30 GM TUBE TP SCH (22:39)
[2018-01-14] MEDS: MELATONIN 5 MG TABLETS PO PRN (22:39)
[2018-01-15] MEDS: chlordiazePOXIDE 5 MG CAPSULE PO SCH ×3 (05:22→17:54)
[2018-01-15] MEDS: HYDROCORTISONE 1% TOPICAL CREAM 30 GM TUBE TP SCH ×3 (05:23→23:04)
[2018-01-15] MEDS: HYDROCHLOROTHIAZIDE 25 MG TABLET (FP) PO SCH (06:56)
--- NOTE | 2018-01-15 11:16 | PN ---
S Progress Note (SOAP) Subjective: alert,irritable,anxious,interrupted sleep Objective: 01/15/18 11:11 Vital Signs Temperature 98.4 F 01/15/18 10:15 Pulse Rate 79 01/15/18 10:15 Respiratory Rate 20 01/15/18 10:15 Blood Pressure 148/87 01/15/18 10:15 O2 Sat by Pulse Oximetry (%) Assessment: 01/15/18 11:11 withdrawal symptom Plan: continue detox,patient refused k dur,encourage citrous juice,banana,patient did not want to take medication metformin,stated his primary care provider take him off from medication,advise to see primary care provider for medical problem and medical management
[2018-01-15] MEDS: POTASSIUM CHLORIDE TABS 20 MEQ TABLET.ER (FP) PO SCH (11:28)
[2018-01-15] MEDS: PRENATAL VITAMINS W/ FOLIC ACID TABLET (FP) PO SCH (11:28)
[2018-01-15] MEDS: amLODIPine BESYLATE 10 MG TABLET (FP) PO SCH (11:28)
[2018-01-15] MEDS: THIAMINE HCL 100 MG TABLET (FP) PO SCH (23:03)
[2018-01-15] MEDS: chlordiazePOXIDE HCL 10 MG CAPSULE PO SCH (23:03)
[2018-01-15] MEDS: MELATONIN 5 MG TABLETS PO PRN (23:06)
[2018-01-16] MEDS: chlordiazePOXIDE HCL 10 MG CAPSULE PO SCH (05:39)
[2018-01-16] MEDS: HYDROCORTISONE 1% TOPICAL CREAM 30 GM TUBE TP SCH (05:40)
[2018-01-16 06:37] VITALS: PULSE 79; TEMP 97.7
[2018-01-16] MEDS: HYDROCHLOROTHIAZIDE 25 MG TABLET (FP) PO SCH (06:41)
[2018-01-16 09:25] VITALS: BP 158/95
[2018-01-16] MEDS: PRENATAL VITAMINS W/ FOLIC ACID TABLET (FP) PO SCH (09:55)
[2018-01-16] MEDS: POTASSIUM CHLORIDE TABS 20 MEQ TABLET.ER (FP) PO SCH (09:55)
[2018-01-16] MEDS: amLODIPine BESYLATE 10 MG TABLET (FP) PO SCH (09:55)
--- NOTE | 2018-01-16 12:05 | DS ---
[facility] Detox Discharge Summary Admission Date: 01/12/18 Discharge Date: 01/16/18 - History Pertinent Past History: HTN, GERD, DM, Chronic back pain - Physical Exam Results Vital Signs: Vital Signs Temperature 97.7 F 01/16/18 09:25 Pulse Rate 79 01/16/18 09:25 Respiratory Rate 18 01/16/18 09:25 Blood Pressure 158/95 01/16/18 09:25 O2 Sat by Pulse Oximetry (%) Pertinent Admission Physical Exam Findings: Withdrawal sx Laboratory Last Values WBC 3.4 K/mm3 (4.0-10.0) L 01/13/18 07:00 RBC 4.83 M/mm3 (4.00-5.60) 01/13/18 07:00 Hgb 13.9 GM/dL (11.7-16.9) 01/13/18 07:00 Hct 41.3 % (35.4-49) 01/13/18 07:00 MCV 85.6 fl (80-96) 01/13/18 07:00 MCH 28.9 pg (25.7-33.7) 01/13/18 07:00 MCHC 33.7 g/dl (32.0-35.9) 01/13/18 07:00 RDW 13.6 % (11.9-15.9) 01/13/18 07:00 Plt Count 182 K/MM3 (134-434) 01/13/18 07:00 MPV 9.5 fl (7.5-11.1) 01/13/18 07:00 Sodium 141 mmol/L (136-145) 01/13/18 07:00 Potassium 3.4 mmol/L (3.5-5.1) L 01/13/18 07:00 Chloride 102 mmol/L (98-107) 01/13/18 07:00 Carbon Dioxide 30 mmol/L (21-32) 01/13/18 07:00 Anion Gap 9 MMOL/L (8-16) 01/13/18 07:00 BUN 9 mg/dL (7-18) 01/13/18 07:00 Creatinine 1.0 mg/dL (0.7-1.3) 01/13/18 07:00 Creat Clearance w eGFR > 60 (>60) 01/13/18 07:00 POC Glucometer 171 UNITS (80-120) 01/16/18 06:43 Random Glucose 123 mg/dL (74-106) H 01/13/18 07:00 Calcium 8.9 mg/dL (8.5-10.1) 01/13/18 07:00 Total Bilirubin 0.6 mg/dL (0.2-1.0) 01/13/18 07:00 AST 15 U/L (15-37) 01/13/18 07:00 ALT 27 U/L (12-78) 01/13/18 07:00 Alkaline Phosphatase 108 U/L (45-117) 01/13/18 07:00 Total Protein 7.4 g/dl (6.4-8.2) 01/13/18 07:00 Albumin 3.8 g/dl (3.4-5.0) 01/13/18 07:00 Urine Color Yellow 01/12/18 22:00 Urine Appearance Clear 01/12/18 22:00 Urine pH 6.0 (5.0-8.0) 01/12/18 22:00 Ur Specific [place] 1.021 (1.001-1.035) 01/12/18 22:00 Urine Protein Negative (NEGATIVE) 01/12/18 22:00 Urine Glucose (UA) 3+ (NEGATIVE) H 01/12/18 22:00 Urine Ketones Negative (NEGATIVE) 01/12/18 22:00 Urine Blood Negative (NEGATIVE) 01/12/18 22:00 Urine Nitrite Negative (NEGATIVE) 01/12/18 22:00 Urine Bilirubin Negative (<2.0 mg/dL) 01/12/18 22:00 Urine Urobilinogen 2.0 mg/dL (0.2-1.0) 01/12/18 22:00 Ur Leukocyte Esterase Negative (NEGATIVE) 01/12/18 22:00 RPR Titer Nonreactive (NONREACTIVE) 01/13/18 07:00 Labs noted-low K+ - Treatment Hospital Course: Detox Protocol Followed, Detoxed Safely, Responded well, Discharged Condition Good, Rehab Referral Accepted - Medication Discharge Medications: Ambulatory Orders Amlodipine Besylate [Norvasc -] 10 mg PO DAILY #30 tablet 01/23/17 Hydrochlorothiazide 25 mg PO DAILY #30 tab 01/23/17 - Diagnosis (1) Alcohol dependence with uncomplicated withdrawal Current Visit: Yes Status: Acute (2) GERD (gastroesophageal reflux disease) Current Visit: Yes Status: Acute Qualifiers: Esophagitis presence: esophagitis presence not specified Qualified Code(s) : K21.9 - Gastro-esophageal reflux disease without esophagitis (3) Cannabis dependence, uncomplicated Current Visit: Yes Status: Chronic (4) Chronic back pain Current Visit: Yes Status: Chronic Qualifiers: Back pain location: low back pain Back pain laterality: right Sciatica presence: without sciatica Qualified Code(s): M54.5 - Low back pain (5) Essential hypertension Current Visit: Yes Status: Chronic (6) Cannabis dependence Current Visit: No Status: Acute (7) Nicotine dependence Current Visit: No Status: Acute Qualifiers: Nicotine product type: cigarettes Substance use status: uncomplicated Qualified Code(s): F17.210 - Nicotine dependence, cigarettes, uncomplicated (8) Type II diabetes mellitus Current Visit: No Status: Chronic Qualifiers: Diabetes mellitus correction insulin use: without correction use Diabetes mellitus complication status: without complication Qualified Code(s): E11.9 - Type 2 diabetes mellitus without complications - AMA Did Patient Leave Against Medical Advice: No
== END 2018-01-16 10:05 | disposition home or self-care (01) | DRG 775 ==
LOC: YASAS 12:30 → Y6N 16:48
PROVIDERS: ADMIT Surgery; ATTEND Surgery
PROC: HZ2ZZZZ Detoxification Services for Substance Abuse Treatment (ICD-10-PCS; principal; 2018-01-12)
DX: F10.230 Alcohol dependence with withdrawal, uncomplicated (principal); F12.20 Cannabis dependence, uncomplicated; F17.210 Nicotine dependence, cigarettes, uncomplicated; I10 Essential (primary) hypertension; K21.9 Gastro-esophageal reflux disease without esophagitis; M54.5 Low back pain; G89.29 Other chronic pain; E11.9 Type 2 diabetes mellitus without complications; E87.6 Hypokalemia; L30.9 Dermatitis, unspecified; E66.9 Obesity, unspecified; Z68.38 Body mass index [BMI] 38.0-38.9, adult; Z88.0 Allergy status to penicillin; Z91.048 Other nonmedicinal substance allergy status
CPT/HCPCS: 36415; 80053; 81003; 82962; 85027; 86593; 93005; 93010

== ENCOUNTER 2018-03-30 14:39 | Observation (INO) | payer OTHER ==
[2018-03-30] MEDS ORDERED: ACETAMINOPHEN 325 MG TABLET (FP) PO ONE (15:24)
--- NOTE | 2018-03-30 15:24 | PDOC ---
History of Present Illness <Josiane Peterson - Last Filed: 03/30/18 16:06> - General History Source: Patient Exam Limitations: No Limitations <So Hilario - Last Filed: 03/30/18 17:59> - General Chief Complaint: Blood Pressure Problem Stated Complaint: BLOOD PRESSURE ISSUES Time Seen by Provider: 03/30/18 14:47 - History of Present Illness Initial Comments: 03/30/18 16:06 48 Y/O M from [facility] detox with a pmh of HTN, diabetes, and alcohol and marijuana abuse who presents to the emergency department from [facility] for evaluation of elevated blood pressure (171/123) and BGL of 558. The patient reports intermittent episodes of exertional chest pain lasting for 3 hours starting yesterday and bifrontal headache described as throbbing and intermittent for the last 3 hours. He reports associated symptoms of blurred vision AD WRITER to ED which he states he has experienced before when he has not been compliant with medications (metformin 500mg BID and amlodipine 10mg daily). Patient also reports associated increased urinary frequency and dysuria, but denies hematuria. He notes some blood after a bowel movement which he has not had before. Of note, patient reports not filling amlodipine and metformin prescription since his d/c from [facility] ED last month. The patient denies abdominal pain, shortness of breath, dizziness, nausea, vomiting, fevers, chills, diarrhea, and constipation. Allergies: Penicillin Social History: Reported alcohol consumption (last drink yesterday, 1 pint of vodka), 1 pack of cigarettes per day , marijuana and substance use. Surgical History: Denies. (Josiane Peterson) Past History <Josiane Peterson - Last Filed: 03/30/18 16:06> - Past Medical History Anemia: No Asthma: No Cancer: No Cardiac Disorders: No CVA: No COPD: No CHF: No Dementia: No Diabetes: Yes (NIDDM) GI Disorders: No Disorders: No HTN: Yes Hypercholesterolemia: No Kidney Stones: No Liver Disease: No Seizures: No Thyroid Disease: No - Surgical History Abdominal Surgery: No Appendectomy: No Cardiac Surgery: No Cholecystectomy: No Lung Surgery: No Neurologic Surgery: No Orthopedic Surgery: No - Reproductive History Testicular Surgery: No - Immunization History Immunization Up to Date: Yes - Suicide/Smoking/Psychosocial Hx Smoking History: Current every day smoker Have you smoked in the past 12 months: Yes Number of Cigarettes Smoked Daily: 10 If you are a former smoker, when did you quit?: 09/2016 Cigars Per Day: 0 Information on smoking cessation initiated: Yes 'Breaking Loose' booklet given: 03/30/18 Hx Alcohol Use: Yes Drug/Substance Use Hx: Yes Substance Use Type: Alcohol Hx Substance Use Treatment: Yes <So Hilario - Last Filed: 03/30/18 17:59> - Past Medical History Allergies/Adverse Reactions: Allergies Allergy/AdvReac Type Severity Reaction Status Date / Time penicillin G Allergy Severe Swelling Verified 03/30/18 12:57 red meat Allergy Severe Hives Uncoded 03/30/18 12:57 Home Medications: Ambulatory Orders Amlodipine Besylate [Norvasc -] 10 mg PO DAILY #30 tablet 01/23/17 Metformin HCl [Glucophage] 500 mg PO BID 03/30/18 Cardiac Specific PMH - Complaint Specific PMHX Pacemaker: No <So Hilario - Last Filed: 03/30/18 17:59> Review of Systems - Review of Systems Able to Perform ROS?: Yes <Josiane Peterson - Last Filed: 03/30/18 16:06> <So Hilario - Last Filed: 03/30/18 17:59> - Review of Systems Comments:: GENERAL/CONSTITUTIONAL: No fever or chills. No weakness. no sweats. HEAD, EYES, EARS, NOSE AND THROAT: (+)Changes in vision/blurry vision. No vision loss or eye pain. No change hearing. No congestion. CARDIOVASCULAR: (+)chest pain. No palpitations, syncope or edema. RESPIRATORY: No SOB, cough, wheezing, or hemoptysis. GASTROINTESTINAL No nausea/vomiting. No diarrhea or constipation. No bloody stools. GENITOURINARY: (+)dysuria. (+) frequency. No urgency, hematuria, or other changes. MUSCULOSKELETAL: No joint or muscle swelling or pain. No neck or back pain. SKIN: No rash or changes in skin color or lesions. NEUROLOGIC: (+)Headache. No vertigo, loss of consciousness, or change in strength/sensation. No gait instability. HEMATOLOGIC/LYMPHATIC: No anemia, easy bruising/bleeding, or history of blood clots. ALLERGIC/IMMUNOLOGIC: No allergies All other systems reviewed and negative, or as documented in HPI. (Josiane Peterson) *Physical Exam <Josiane Peterson - Last Filed: 03/30/18 16:06> <So Hilario - Last Filed: 03/30/18 17:59> - Vital Signs Last Vital Signs Temp Pulse Resp BP Pulse Ox 97.7 F 63 18 175/119 H 99 03/30/18 14:56 03/30/18 17:30 03/30/18 17:30 03/30/18 17:30 03/30/18 17:30 - Physical Exam Comments: General: Well appearing, awake and alert, NAD. HEENT: NCAT, PERRL, EOMI, clear conjunctiva, anicteric, moist mucus membranes, clear oropharynx, no oral lesions.. Neck: neck supple, FROM Resp: CTAB, normal and even respirations, no respiratory distress CVS: RRR, no murmurs, 2+ peripheral pulses throughout, no peripheral edema Abdomen: soft, NTND, no peritoneal signs. Back: nontender, normal inspection and ROM MSK: no edema, CRUZ x4, ROM intact. No clubbing or cyanosis. normal bulk and tone. Extrem: no calf tenderness Neuro: alert, oriented appropriately; no focal neurologic deficits Skin: warm and well perfused, cap refill <2 sec, normal color (Josiane Peterson) Heart Score/ECG Review <Josiane Peterson - Last Filed: 03/30/18 16:06> - ECG Impressions Normal ECG: No <So Hilario - Last Filed: 03/30/18 17:59> - ECG Impressions Comment:: 03/30/18 17:50 EKG normal sinus rhythm, no interval abnormalities, narrow QRS, ST and T wave segments and morphology normal. Nonspecific T wave abnormalities In III, similar to prior with more pronounced TWI in III. (So Hilario) ED Treatment Course - LABORATORY CBC & Chemistry Diagram: 03/30/18 15:25 03/30/18 15:25 <Josiane Peterson - Last Filed: 03/30/18 16:06> - LABORATORY CBC & Chemistry Diagram: 03/30/18 15:25 03/30/18 15:25 <So Hilario - Last Filed: 03/30/18 17:59> - ADDITIONAL ORDERS Additional order review: Laboratory Results 03/30/18 03/30/18 03/30/18 16:10 15:25 15:25 Sodium 138 Potassium 4.1 Chloride 105 Carbon Dioxide 28 Anion Gap 6 L BUN 10 Creatinine 1.4 H Creat Clearance w eGFR 54.56 Random Glucose 426 H* Calcium 8.5 Total Bilirubin 0.6 AST 15 ALT 27 Alkaline Phosphatase 139 H Troponin I 0.02 Total Protein 6.7 Albumin 3.5 Urine Color Colorless Urine Appearance Clear Urine pH 7.0 Ur Specific Dixie 1.023 Urine Protein Negative Urine Glucose (UA) 3+ H Urine Ketones Negative Urine Blood Negative Urine Nitrite Negative Urine Bilirubin Negative Urine Acetone Cancelled Urine Urobilinogen Negative Ur Leukocyte Esterase Negative Acetone, Qual Negative 03/30/18 15:25 RBC 4.63 MCV 86.6 MCHC 34.5 RDW 13.2 MPV 9.7 Neutrophils % 59.4 Lymphocytes % 32.0 Monocytes % 6.0 Eosinophils % 2.0 Basophils % 0.6 - RADIOLOGY Radiology Studies Ordered: Category Date Time Status CHEST PA & LAT [RAD] Stat Radiology 03/30/18 15:25 Completed - Medications Given in the ED: ED Medications Discontinued Medications Generic Name Dose Route Start Last Admin Trade Name Liz PRN Reason Stop Dose Admin Acetaminophen 975 mg 03/30/18 15:24 03/30/18 15:32 Tylenol - PO 03/30/18 15:25 975 mg ONCE ONE Administration Amlodipine Besylate 10 mg 03/30/18 16:06 03/30/18 16:19 Norvasc - PO 03/30/18 16:07 10 mg ONCE ONE Administration Diazepam 10 mg 03/30/18 17:34 03/30/18 17:36 Valium - PO 03/30/18 17:35 10 mg ONCE ONE Administration Insulin Human Regular 10 units 03/30/18 15:40 03/30/18 15:56 Novolin R Vial *For Ivpush Or Iv Drip Only* SQ 03/30/18 15:41 10 units ONCE ONE Administration Sodium Chloride 1,000 ml 03/30/18 15:40 03/30/18 15:41 Normal Saline - IV 03/30/18 15:41 1,000 ml ONCE ONE Administration Medical Decision Making <Josiane Peterson - Last Filed: 03/30/18 16:06> <So Hilario - Last Filed: 03/30/18 17:59> - Medical Decision Making 03/30/18 16:08 Vital Signs Temp Pulse Resp BP Pulse Ox 97.7 F 85 18 175/115 H 99 03/30/18 14:56 03/30/18 16:05 03/30/18 16:05 03/30/18 16:05 03/30/18 14:56 DDx. hypertensive urgency/emergency, end organ damage, ACS, angina, metabolic / electrolyte derangements, DKA, MIN. Vital signs reviewed, hypertensive, with some sx (diffuse TAY, intermittent CP), 170s/110s and normal heart rate, NAD. Prior notes reviewed, including admissions, discharges and consultations. laboratory results and imaging reviewed, basic labs and lytes wnl, notable for borderline Cr 1.4, no prior. Lytes normal. No e/o ketones, so unlikely in DKA. UA_glucose, no ketones. UA neg for infection, sent off GC/chlamydia/trich testing for STD. CXR_clear, no edema. Cardiac panel_neg trop, reassuring EKG normal sinus rhythm, no interval abnormalities, narrow QRS, ST and T wave segments and morphology normal. Nonspecific T wave abnormalities In III, similar to prior with more pronounced TWI in III. ED course: no acute events, remained stable and well appearing. Clinically improved after interventions, including tylenol PO, IVF, insulin for hyperglycemia and regular dose amlodipine. Will reassess and check BP, which remains elevated 170s/110s. with some e/o end organ damage (Cr elevation) Valium PO for mild etoh w/d. no acute distress, could help with his HTN normal mental status, comfortable, no neuro deficits, low yield/utility of ct head at this time w/o changes. Dispo: admit for hypertension management, elevated Cr and nonspecific TW changes on EKG, poorly controlled DM2 and HTN admit to Dr. Bellamy. 03/30/18 17:49 03/30/18 17:59 (So Hilario) *DC/Admit/Observation/Transfer <Josiane Peterson - Last Filed: 03/30/18 16:06> - Discharge Dispostion Decision to Admit order: Yes <So Hilario - Last Filed: 03/30/18 17:59> Diagnosis at time of Disposition: Alcohol dependence, Type II diabetes mellitus, Hypertension, Hyperglycemia - Discharge Dispostion Condition at time of disposition: Guarded Decision to Admit order Date/Time: Decision to Admit Order Category Date Time Status Decision to Admit to Hospital Routine Admission 03/30/18 17:38 Active - Attestations Scribe Attestion: Documentation prepared by Josiane Peterson, acting as health care / medical job titles for So Hilario MD. (Josiane Peterson) Physician Attestion: 03/30/18 16:08 I, So Hilario MD, attest that this document has been prepared under my direction and personally reviewed by me in its entirety. I further attest, that it accurately reflects all work, treatment, procedures and medical decision -making performed by me. (So Hilario)
[2018-03-30] MEDS ORDERED: ACETAMINOPHEN 325 MG TABLET (FP) ONE (15:31)
[2018-03-30] MEDS ORDERED: SODIUM CHLORIDE 0.9% 500 ML INFUS.BAG IV ONE (15:40)
[2018-03-30] MEDS ORDERED: INSULIN REGULAR HUMAN 100 UNITS/ML *VIAL SQ ONE (15:40)
[2018-03-30] MEDS ORDERED: INSULIN NPH 100 UNITS/ML *VIAL ONE (15:50)
[2018-03-30 15:52] LABS: URINE APPEARANCE CLEAR; URINE BILIRUBIN NEGATIVE (<2.0 mg/dL); URINE COLOR COLORLESS; URINE GLUCOSE (UA) 3+ (NEGATIVE); URINE KETONE NEGATIVE (NEGATIVE); URINE LEUK ESTERASE NEGATIVE (NEGATIVE); URINE NITRITE NEGATIVE (NEGATIVE); URINE PROTEIN NEGATIVE (NEGATIVE); URINE UROBILINOGEN NEGATIVE mg/dL (0.2-1.0)
[2018-03-30 16:04] LABS: BASO % 0.6 % (0-2.0); HEMATOCRIT 40.1 % (35.4-49); HEMOGLOBIN 13.8 GM/dL (11.7-16.9); MCH 29.9 pg (25.7-33.7); MCHC 34.5 g/dl (32.0-35.9); MEAN CELL VOLUME 86.6 fl (80-96); MEAN PLT VOLUME 9.7 fl (7.5-11.1); NEUT % 59.4 % (42.8-82.8); PLATELET COUNT 149 K/MM3 (134-434); RBC 4.63 M/mm3 (4.00-5.60); RDW 13.2 % (11.9-15.9); WHITE BLOOD COUNT 4.1 K/mm3 (4.0-10.0)
[2018-03-30] MEDS ORDERED: amLODIPine BESYLATE 10 MG TABLET (FP) PO ONE (16:06)
[2018-03-30] MEDS ORDERED: amLODIPine BESYLATE 5 MG TABLET (FP) ONE (16:11)
[2018-03-30 16:22] LABS: ALBUMIN 3.5 g/dl (3.4-5.0); ALK PHOS 139 U/L (45-117); ANION GAP 6 MMOL/L (8-16); BILIRUBIN,TOTAL 0.6 mg/dL (0.2-1); BLOOD UREA NITROGEN 10 mg/dL (7-18); CALCIUM 8.5 mg/dL (8.5-10.1); CHLORIDE 105 mmol/L (98-107); CO2 28 mmol/L (21-32); CREATININE 1.4 mg/dL (0.55-1.3); POTASSIUM 4.1 mmol/L (3.5-5.1); SGOT/AST 15 U/L (15-37); SGPT/ALT 27 U/L (13-61); SODIUM 138 mmol/L (136-145); TOT PROT 6.7 g/dl (6.4-8.2)
[2018-03-30 16:24] LABS: GLUCOSE,RANDOM 426 mg/dL (74-106)
[2018-03-30] MEDS ORDERED: diazePAM 5 MG TABLET PO ONE (17:34)
[2018-03-30] MEDS ORDERED: diazePAM 5 MG TABLET ONE (17:35)
[2018-03-30] MEDS ORDERED: HEMOQUE TEST 1 EACH EACH ONE (17:35)
[2018-03-30] MEDS ORDERED: ACETAMINOPHEN 325 MG TABLET (FP) PO PRN (18:02)
[2018-03-30] MEDS ORDERED: ONDANSETRON 4 MG/2 ML VIAL IVPUSH PRN (18:02)
[2018-03-30] MEDS ORDERED: chlordiazePOXIDE HCL 25 MG CAPSULE PO PRN (18:08)
[2018-03-30] MEDS ORDERED: SODIUM CHLORIDE 1,000 ML IV SCH (18:15)
--- NOTE | 2018-03-30 18:32 | HP ---
Admitting History and Physical - Primary Care Physician PCP: NONE - Admission Chief Complaint: I was sent over for blood pressure and diabetes History of Present Illness: Mr Sigala is a pleasant 48 year old male who presented to [facility] for detox and was sent over secondary to elevated glucose and blood pressure. He states he is a chronic user of alcohol, and while his drinking is dependent on his finances he says he drinks about a pint of vodka a day. He comes in with multiple complaints. He says he is having headaches today. He says he is experiencing blurry vision in both eyes, this has been present for about a month. He says he is experiencing exertion chest pressure that is left sided and radiates to his left shoulder. This has been present for 5-6 months and he was told he needed a stress test but he was unable to do because he was working. He has exertion chest pain associated with it. He has nausea without vomiting for the past few hours. He has polydypsia and polyruia for the past two weeks. He has dysuria with yellow discharge, he endorses 1 female sexual partner recently that he had unprotected sex with. He denies fevers, chills, lightheadedness, passing out, and swelling. History Source: Patient Limitations to Obtaining History: No Limitations - Past Medical History Cardiovascular: Yes: HTN Endocrine: Yes: Diabetes Mellitus - Past Surgical History Past Surgical History: Yes: None - Smoking History Smoking history: Current every day smoker Have you smoked in the past 12 months: Yes Aproximately how many cigarettes per day: 10 If you are a former smoker, when did you quit?: 09/2016 - Alcohol/Substance Use Hx Alcohol Use: Yes History of Substance Use: reports: Marijuana - Social History ADL: Independent History of Recent Travel: No Home Medications - Allergies Allergies/Adverse Reactions: Allergies Allergy/AdvReac Type Severity Reaction Status Date / Time penicillin G Allergy Severe Swelling Verified 03/30/18 12:57 red meat Allergy Severe Hives Uncoded 03/30/18 12:57 - Home Medications Home Medications: Ambulatory Orders Amlodipine Besylate [Norvasc -] 10 mg PO DAILY #30 tablet 01/23/17 Metformin HCl [Glucophage] 500 mg PO BID 03/30/18 Family Disease History - Family Disease History Family Disease History: Diabetes: Grandparent, Mother (htn), Heart Disease: Mother, Respiratory: Sister (asthma), Other: Father (,alcohol), Mother Review of Systems Findings/Remarks: Full review of systems obtained, as per HPI and otherwise negative Physical Examination Vital Signs: Vital Signs Temperature 36.5 C 03/30/18 14:56 Pulse Rate 63 03/30/18 17:30 Respiratory Rate 18 03/30/18 17:30 Blood Pressure 175/119 H 03/30/18 17:30 O2 Sat by Pulse Oximetry (%) 99 03/30/18 17:30 Constitutional: Yes: Well Nourished, No Distress, Calm Eyes: Yes: Conjunctiva Clear, EOM Intact, PERRL HENT: Yes: Atraumatic, Normocephalic Cardiovascular: Yes: Regular Rate and Rhythm. No: Gallop, Murmur, Rub Respiratory: Yes: Regular, CTA Bilaterally. No: Rales, Rhonchi, Wheezes Gastrointestinal: Yes: Normal Bowel Sounds, Soft. No: Distention, Tenderness Extremities: Yes: WNL Edema: Yes Edema: LLE: Trace, RLE: Trace Labs: CBC, BMP 03/30/18 15:25 03/30/18 15:25 Imaging - Results Chest X-ray: Report Reviewed, Image Reviewed Problem List - Problems (1) Hypertension Assessment/Plan: -patient not taking amlodipine 10mg for 2 weeks -presents with elevated blood pressure -received amlodipine 10mg in the ED without effect -considering patient is and diabetic amlodipine is not first line medication -also would not use amlodipine in the acute setting -[facility] 8 recommends ACEI as first line therapy -however, recent studies coming out of the [place] showing possibility of increase risk of lung cancer with ACEI -since patient is also a smoker of both cannabis and tobacco, will want to decrease all risk -will start cozaar 50mg daily as is also renal and cardioprotective -titrate as needed, also consider addition of beta darrius if necessary -will hold on IV antihypertensives at this time considering EtOH withdrawal may also be contributing Code(s): I10 - ESSENTIAL (PRIMARY) HYPERTENSION (2) MIN (acute kidney injury) Assessment/Plan: -suspect secondary to alcohol intake and dehydration -will hydrate currently -monitor as may not be able to tolerate cozaar however will trial it while here -if does not improve, obtain renal ultrasound -will check urine sodium, urine osms, and serum osms to calculate FENa Code(s): N17.9 - ACUTE KIDNEY FAILURE, UNSPECIFIED (3) Type II diabetes mellitus Assessment/Plan: -poorly controlled secondary to not taking metformin -will control with FSBS in the short term -diabetic diet when eating -check HgbA1c -if renal function improves, can restart metformin Code(s): E11.9 - TYPE 2 DIABETES MELLITUS WITHOUT COMPLICATIONS Qualifiers: (4) STI (sexually transmitted infection) Assessment/Plan: -concern for STI -check for gonorrhea, chlamydia, and rpr for syphilis -start doxycycline for chlamydia coverage empirically -patient refused HIV testing Code(s): A64 - UNSPECIFIED SEXUALLY TRANSMITTED DISEASE (5) Alcohol dependence with uncomplicated withdrawal Assessment/Plan: -start on librium protocol Code(s): F10.230 - ALCOHOL DEPENDENCE WITH WITHDRAWAL, UNCOMPLICATED (6) Cannabis dependence Assessment/Plan: -to present to [facility] after this Code(s): F12.20 - CANNABIS DEPENDENCE, UNCOMPLICATED (7) Chest pain Assessment/Plan: -patient presents with exertional chest pain and shortness of breath -monitor on telemetry -cardiac enzymes x3 -ECHO ordered -cardiology consult and stress test ordered Code(s): R07.9 - CHEST PAIN, UNSPECIFIED (8) Tobacco abuse Assessment/Plan: -patient declines nicotine patch at this time Code(s): Z72.0 - TOBACCO USE
[2018-03-30] MEDS: LOSARTAN POTASSIUM 50 MG TABLET (FP) PO SCH (18:40)
[2018-03-30] MEDS ORDERED: metFORMIN HCL 500 MG TABLET (FP) PO SCH (22:00)
[2018-03-30 22:13] VITALS: BMI 39.2
[2018-03-30] MEDS: INSULIN SLIDING SCALE (NOVOLOG) 1 VIAL SQ SCH (22:20)
[2018-03-30] MEDS: chlordiazePOXIDE HCL 25 MG CAPSULE PO SCH (23:23)
[2018-03-31] MEDS: chlordiazePOXIDE HCL 25 MG CAPSULE PO SCH ×4 (05:30→22:00)
[2018-03-31] MEDS: INSULIN SLIDING SCALE (NOVOLOG) 1 VIAL SQ SCH ×4 (06:03→21:20)
[2018-03-31 06:28] LABS: BASO % 0.5 % (0-2.0); EOS % 2.8 % (0-4.5); HEMATOCRIT 40.4 % (35.4-49); HEMOGLOBIN 14.1 GM/dL (11.7-16.9); LYMPH % 41.7 % (8-40); MEAN CELL VOLUME 85.7 fl (80-96); MEAN PLT VOLUME 9.8 fl (7.5-11.1); MONO % 5.9 % (3.8-10.2); NEUT % 49.1 % (42.8-82.8); PLATELET COUNT 154 K/MM3 (134-434); RBC 4.72 M/mm3 (4.00-5.60); RDW 13.1 % (11.9-15.9); WHITE BLOOD COUNT 3.4 K/mm3 (4.0-10.0)
[2018-03-31 07:05] LABS: ANION GAP 7 MMOL/L (8-16); BLOOD UREA NITROGEN 8 mg/dL (7-18); CALCIUM 8.2 mg/dL (8.5-10.1); CHLORIDE 103 mmol/L (98-107); CO2 29 mmol/L (21-32); CREATININE 1.1 mg/dL (0.55-1.3); GLUCOSE,RANDOM 220 mg/dL (74-106); MAGNESIUM 1.9 mg/dL (1.8-2.4); PHOSPHOROUS 3.3 mg/dL (2.5-4.9); POTASSIUM 3.5 mmol/L (3.5-5.1); SODIUM 139 mmol/L (136-145)
[2018-03-31 07:42] LABS: INR 1.06 (0.83-1.09); PROTHROMBIN TIME (PATIENT) 12.5 SEC (9.7-13.0)
[2018-03-31 07:43] LABS: CHOLESTEROL 141 mg/dL (50-200); HDL CHOLESTEROL 34 mg/dL (40-60); TRIGLYCERIDES 142 mg/dL (0-150)
--- NOTE | 2018-03-31 08:07 | PN ---
Progress Note, Physician Chief Complaint: Sleeping comfortably - Current Medication List Current Medications: Active Medications Acetaminophen (Tylenol -) 650 mg PO Q4H PRN PRN Reason: FEVER Amlodipine Besylate (Norvasc -) 10 mg PO DAILY [facility] Chlordiazepoxide HCl (Librium -) 50 mg PO [id number] Stop: 03/31/18 17:01 Last Admin: 03/31/18 05:30 Dose: 50 mg Chlordiazepoxide HCl (Librium -) 25 mg PO [id number] Stop: 04/01/18 17:01 Chlordiazepoxide HCl (Librium -) 15 mg PO [id number] Stop: 04/02/18 17:01 Chlordiazepoxide HCl (Librium -) 25 mg PO Q4H PRN PRN Reason: WITHDRAWAL(CONT SUBST) Stop: 04/02/18 18:07 Chlordiazepoxide HCl (Librium -) 10 mg PO [id number] Stop: 04/03/18 17:01 Doxycycline Hyclate (Vibramycin -) 100 mg PO BID@1000,1800 ROSALIO Sodium Chloride (Normal Saline -) 1,000 mls @ 100 mls/hr IV ASDIR [facility] Last Admin: 03/30/18 18:40 Dose: 100 mls/hr Insulin Aspart (Novolog Vial Sliding Scale -) 1 vial SQ ACHS [facility]; Protocol Last Admin: 03/31/18 06:03 Dose: Not Given Losartan Potassium (Cozaar -) 50 mg PO DAILY [facility] Last Admin: 03/30/18 18:40 Dose: 50 mg Ondansetron HCl (Zofran Injection) 4 mg IVPUSH Q6H PRN PRN Reason: NAUSEA - Objective Vital Signs: Vital Signs Temperature 98.1 F 03/31/18 06:00 Pulse Rate 62 03/31/18 06:00 Respiratory Rate 18 03/31/18 06:00 Blood Pressure 151/88 03/31/18 06:00 O2 Sat by Pulse Oximetry (%) 99 03/31/18 03:00 Constitutional: :Disheveled man Well Nourished, No Distress, Calm HENT: Yes: Atraumatic, Normocephalic, Conjunctiva Clear, EOM Intact, PERRL Cardiovascular: Regular Rate and Rhythm. No: Gallop, Murmur, Rub Respiratory:Regular, CTA Bilaterally. No: Rales, Rhonchi, Wheezes Gastrointestinal: Yes: Normal Bowel Sounds, Soft. 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 Labs: CBC, BMP 03/31/18 05:30 03/31/18 05:30 INR, PTT INR 1.06 (0.83-1.09) 03/31/18 06:30 Problem List - Problems (1) Hypertensive urgency Assessment/Plan: Due to non complince resume home meds BP is better controlled Code(s): I16.0 - HYPERTENSIVE URGENCY (2) Alcohol dependence with uncomplicated withdrawal Assessment/Plan: Cont with emilie protocol observe for DTS last drink was on Thursday night Code(s): F10.230 - ALCOHOL DEPENDENCE WITH WITHDRAWAL, UNCOMPLICATED (3) Uncontrolled diabetes mellitus Assessment/Plan: Due to non complint optimize Glycemic control add basal insulin if FS are persistently > 200 Code(s): E11.65 - TYPE 2 DIABETES MELLITUS WITH HYPERGLYCEMIA Qualifiers: Diabetes mellitus type: type 2 Glycemic state: with hyperglycemia Qualified Code(s): E11.65 - Type 2 diabetes mellitus with hyperglycemia (4) Cannabis dependence Assessment/Plan: no active issue Code(s): F12.20 - CANNABIS DEPENDENCE, UNCOMPLICATED (5) MIN (acute kidney injury) Assessment/Plan: Improving on IV Hydration Code(s): N17.9 - ACUTE KIDNEY FAILURE, UNSPECIFIED (6) Obesity Assessment/Plan: Nutritional consult as out patient Code(s): E66.9 - OBESITY, UNSPECIFIED Qualifiers: Obesity type: unspecified obesity type (7) Chest pain Assessment/Plan: CAd risks but atypical CP no acute St T hnages serial CE nad EKG are non dynamic F/U ECHO refused for Stress test today as he was hungry will F/U Cardiology input. Code(s): R07.9 - CHEST PAIN, UNSPECIFIED (8) Urethral discharge Assessment/Plan: C/O urethral discharge no dysuria ir fever UA normal will F/U U culture, urine Gonorrhea and chlamydia if + will treat appropriately with abx Code(s): R36.9 - URETHRAL DISCHARGE, UNSPECIFIED
--- NOTE | 2018-03-31 09:53 | CON.CARD ---
Consult Consult Specialty:: Cardiology Referred by:: Adriana Reason for Consultation:: chest pain - History of Present Illness Chief Complaint: chest pain History of Present Illness: 48M h/o HTN, DM, EtOH abuse p/w headaches, blurry vision, chest pressure. per chart. Chest pressure left sided, radiates to L shoulder for 5-6 months. Was advised to do a stress test, hasn't done due to being busy. No dyspnea, edema, palps, orthopnea. Elevated BP in ER, did not take home meds for at least two weeks. He was given amlodipine in ER and started on cozaar. Also noted to have MIN, poorly controlled DM due to noncompliance. on librium for EtOH withdrawal (drinks pint of vodka daily). Patient somnolent on exam after receiving librium, did not provide additional history. says no chest pain now. - Past Medical History Cardio/Vascular: Yes: HTN Endocrine: Yes: Diabetes Mellitus - Past Surgical History Past Surgical History: Yes: None - Alcohol/Substance Use Hx Alcohol Use: Yes (2 PINTS VODKA / 6-PACK BEER PER DAY) History of Substance Use: reports: Marijuana - Smoking History Smoking history: Current every day smoker Have you smoked in the past 12 months: Yes Aproximately how many cigarettes per day: 10 If you are a former smoker, when did you quit?: 09/2016 - Social History ADL: Independent History of Recent Travel: No Home Medications - Allergies Allergies/Adverse Reactions: Allergies Allergy/AdvReac Type Severity Reaction Status Date / Time penicillin G Allergy Severe Swelling Verified 03/30/18 12:57 red meat Allergy Severe Hives Uncoded 03/30/18 12:57 - Home Medications Home Medications: Ambulatory Orders Amlodipine Besylate [Norvasc -] 10 mg PO DAILY #30 tablet 01/23/17 Metformin HCl [Glucophage] 500 mg PO BID 03/30/18 Family Disease History - Family Disease History Family Disease History: Diabetes: Grandparent, Mother (htn), Heart Disease: Mother, Respiratory: Sister (asthma), Other: Father (,alcohol), Mother Review of Systems - Review of Systems Constitutional: reports: No Symptoms Eyes: reports: No Symptoms HENT: reports: No Symptoms Neck: reports: No Symptoms Cardiovascular: reports: Chest Pain Respiratory: reports: No Symptoms Gastrointestinal: reports: No Symptoms Genitourinary: reports: No Symptoms Musculoskeletal: reports: No Symptoms Integumentary: reports: No Symptoms Neurological: reports: No Symptoms Endocrine: reports: No Symptoms Hematology/Lymphatic: reports: No Symptoms Psychiatric: reports: No Symptoms Vital Signs: Vital Signs Temperature 98.1 F 03/31/18 06:00 Pulse Rate 62 03/31/18 06:00 Respiratory Rate 18 03/31/18 06:00 Blood Pressure 151/88 03/31/18 06:00 O2 Sat by Pulse Oximetry (%) 99 03/31/18 03:00 Constitutional: Yes: Well Nourished, No Distress Eyes: Yes: Conjunctiva Clear, EOM Intact HENT: Yes: Atraumatic, Normocephalic Neck: Yes: Supple, Trachea Midline Respiratory: Yes: Regular, CTA Bilaterally Gastrointestinal: Yes: Normal Bowel Sounds, Soft Renal/: Yes: WNL Cardiovascular: Yes: Regular Rate and Rhythm JVD: No Carotid Bruit: No PMI: Non-Displaced Heart Sounds: Yes: S1, S2 Musculoskeletal: No: Back Pain Extremities: No: Cold, Cyanosis Edema: No Peripheral Pulses WNL: Yes Peripheral Pulses: 2+ Left Doralis Pedis, 2+ Right Dorsalis Pedis Integumentary: No: Jaundice Neurological: Yes: Alert, Oriented Psychiatric: Yes: Alert, Oriented - Other Data Labs, Other Data: CBC, BMP 03/31/18 05:30 03/31/18 05:30 INR, PTT INR 1.06 (0.83-1.09) 03/31/18 06:30 Troponin, BNP 03/30/18 03/30/18 03/31/18 15:25 22:15 05:30 Troponin I 0.02 0.02 0.02 Troponin, BNP 03/30/18 03/30/18 03/31/18 15:25 22:15 05:30 Troponin I 0.02 0.02 0.02 Assessment/Plan EKG: sinus, LAE, LVH CXR: no acute process Chest pain - trop neg x 2 - EKG no ischemic changes - echo ordered - given history of exertional chest pain that is worsening, nuc stress ordered. - patient refused today, agreed to do tomorrow MIN - improved with IVF HTN - improving on amlodipine, cozaar - LVH noted on EKG, echo ordered DM - not controlled - manage per primary team EtOH withdrawal - on librium protocol per primary team Smoking - encouraged smoking cessation
[2018-03-31] MEDS ORDERED: DOXYCYCLINE HYCLATE 100 MG CAPSULE PO SCH (10:00)
[2018-03-31] MEDS ORDERED: PT OWN MED DRAWER 7, Y5N ONE (10:05)
[2018-03-31] MEDS: LOSARTAN POTASSIUM 50 MG TABLET (FP) PO SCH (10:17)
[2018-03-31] MEDS: amLODIPine BESYLATE 10 MG TABLET (FP) PO SCH (10:17)
[2018-03-31] MEDS: FOLIC ACID 1 MG TABLET (FP) PO SCH (12:54)
[2018-03-31] MEDS: THIAMINE HCL 100 MG TABLET (FP) PO SCH (12:54)
--- NOTE | 2018-03-31 15:27 | ECHO ---
Name: KATHIE THOMPSON Exam:Adult Echocardiogram Study Date: 03/31/2018 01:54 PM Age: 48 yrs Reason For Study: Chest Pain Height: 72 in Weight: 260 lb BSA: 2.4 m2 MMode/2D Measurements & Calculations IVSd: 1.0 cm Ao root diam: 2.7 cm LVIDd: 5.6 cm ACS: 1.7 cm LVIDs: 4.6 cm LVPWd: 2.0 cm EDV(Teich): 156.5 ml LVOT diam: 2.1 cm ESV(Teich): 96.7 ml TAPSE: 2.0 cm RV S Crispin: 14.8 cm/sec Doppler Measurements & Calculations Med Peak E' Crispin: 2.9 cm/sec Procedure The study was technically difficult with many images being suboptimal in quality. The study was non-d iagnostic in quality. No definitive statements could be made about this echo due to extremely poor acoustic win dows. Left Ventricle The left ventricle is grossly normal size. Left ventricular systolic function is mild to moderately r educed. There is mild to moderate global hypokinesis of the left ventricle. Regional wall motion abnormalitie s cannot be excluded due to limited visualization. Right Ventricle The right ventricle is not well visualized. Atria The left atrium is not well visualized. Right atrium not well visualized. Mitral Valve There is mild mitral valve thickening. There is no mitral valve stenosis. There is moderate mitral regurgitation. Tricuspid Valve The tricuspid valve is not well visualized. There is no tricuspid stenosis. There was insufficient TR detected to calculate RV systolic pressure. Aortic Valve The aortic valve is not well visualized. Pulmonic Valve The pulmonic valve is not well visualized. Great Vessels The aortic root is normal size. Pericardium/Pleura There is no pericardial effusion. Interpretation Summary The study was technically difficult with many images being suboptimal in quality. The left ventricle is grossly normal size. Left ventricular systolic function is mild to moderately reduced. There is mild to moderate global hypokinesis of the left ventricle. There is moderate mitral regurgitation. Regional wall motion abnormalities cannot be excluded due to limited visualization. The right ventricle is not well visualized. The left atrium is not well visualized. Right atrium not well visualized. The tricuspid valve is not well visualized. There was insufficient TR detected to calculate RV systolic pressure. The aortic valve is not well visualized. The study was non-diagnostic in quality. No definitive statements could be made about this echo due t o extremely poor acoustic windows. MD J Carlos Menchaca 03/31/2018 03:27 PM
[2018-04-01] MEDS: chlordiazePOXIDE HCL 25 MG CAPSULE PO SCH ×2 (05:50→05:56)
[2018-04-01] MEDS: INSULIN SLIDING SCALE (NOVOLOG) 1 VIAL SQ SCH ×2 (06:03→07:45)
[2018-04-01 06:06] VITALS: TEMP 98.1
[2018-04-01 06:29] LABS: BASO % 0.4 % (0-2.0); EOS % 2.5 % (0-4.5); HEMATOCRIT 43.3 % (35.4-49); HEMOGLOBIN 14.5 GM/dL (11.7-16.9); MCH 28.7 pg (25.7-33.7); MCHC 33.5 g/dl (32.0-35.9); MEAN CELL VOLUME 85.7 fl (80-96); MEAN PLT VOLUME 9.3 fl (7.5-11.1); MONO % 6.6 % (3.8-10.2); NEUT % 47.5 % (42.8-82.8); PLATELET COUNT 148 K/MM3 (134-434); RBC 5.06 M/mm3 (4.00-5.60); RDW 13.2 % (11.9-15.9); WHITE BLOOD COUNT 3.2 K/mm3 (4.0-10.0)
[2018-04-01 07:06] LABS: ANION GAP 8 MMOL/L (8-16); BLOOD UREA NITROGEN 10 mg/dL (7-18); CALCIUM 8.7 mg/dL (8.5-10.1); CHLORIDE 102 mmol/L (98-107); CO2 28 mmol/L (21-32); CREATININE 1.2 mg/dL (0.55-1.3); GLUCOSE,RANDOM 264 mg/dL (74-106); POTASSIUM 3.6 mmol/L (3.5-5.1); SODIUM 138 mmol/L (136-145)
[2018-04-01 08:59] VITALS: BP 125/75; PULSE 82
[2018-04-01] MEDS: LOSARTAN POTASSIUM 50 MG TABLET (FP) PO SCH (09:01)
[2018-04-01] MEDS: THIAMINE HCL 100 MG TABLET (FP) PO SCH (09:01)
[2018-04-01] MEDS: amLODIPine BESYLATE 10 MG TABLET (FP) PO SCH (09:01)
[2018-04-01] MEDS: FOLIC ACID 1 MG TABLET (FP) PO SCH (09:01)
[2018-04-01] MEDS ORDERED: glipiZIDE 5 MG TABLET (FP) PO ONE (09:15)
[2018-04-01] MEDS ORDERED: AZITHROMYCIN 500 MG TABLET PO ONE (09:15)
[2018-04-01] MEDS ORDERED: HYDROCHLOROTHIAZIDE 25 MG TABLET (FP) PO SCH (10:00)
[2018-04-01] MEDS ORDERED: ASPIRIN 81 MG CHEWABLE TABLETS PO SCH (10:00)
--- NOTE | 2018-04-01 10:20 | PN ---
Progress Note, Physician Chief Complaint: Sleeping comfortably, no chest pain or SOB refusing stress test - Current Medication List Current Medications: Active Medications Acetaminophen (Tylenol -) 650 mg PO Q4H PRN PRN Reason: FEVER Amlodipine Besylate (Norvasc -) 10 mg PO DAILY [facility] Last Admin: 04/01/18 09:01 Dose: 10 mg Aspirin (Asa -) 81 mg PO DAILY [facility] Chlordiazepoxide HCl (Librium -) 25 mg PO [id number] [facility] Stop: 04/01/18 17:01 Last Admin: 04/01/18 05:50 Dose: Not Given Chlordiazepoxide HCl (Librium -) 15 mg PO [id number] [facility] Stop: 04/02/18 17:01 Chlordiazepoxide HCl (Librium -) 25 mg PO Q4H PRN PRN Reason: WITHDRAWAL(CONT SUBST) Stop: 04/02/18 18:07 Chlordiazepoxide HCl (Librium -) 10 mg PO [id number] [facility] Stop: 04/03/18 17:01 Folic Acid (Folic Acid -) 1 mg PO DAILY [facility] Last Admin: 04/01/18 09:01 Dose: 1 mg Hydrochlorothiazide (Hctz -) 25 mg PO DAILY [facility] Last Admin: 04/01/18 09:19 Dose: 25 mg Insulin Aspart (Novolog Vial Sliding Scale -) 1 vial SQ [facility]; Protocol Last Admin: 04/01/18 07:45 Dose: 6 units Losartan Potassium (Cozaar -) 50 mg PO DAILY [facility] Last Admin: 04/01/18 09:01 Dose: 50 mg Ondansetron HCl (Zofran Injection) 4 mg IVPUSH Q6H PRN PRN Reason: NAUSEA Sitagliptin Phosphate (Januvia -) 50 mg PO DAILY@0700 [facility] Thiamine HCl (Vitamin B1 -) 100 mg PO DAILY [facility] Last Admin: 04/01/18 09:01 Dose: 100 mg - Objective Vital Signs: Vital Signs Temperature 98.1 F 04/01/18 08:59 Pulse Rate 82 04/01/18 08:59 Respiratory Rate 20 04/01/18 08:59 Blood Pressure 125/75 04/01/18 08:59 O2 Sat by Pulse Oximetry (%) 99 03/31/18 21:00 Constitutional: :Disheveled man Well Nourished, No Distress, Calm HENT: Yes: Atraumatic, Normocephalic, Conjunctiva Clear, EOM Intact, PERRL Cardiovascular: Regular Rate and Rhythm. No: Gallop, Murmur, Rub Respiratory:Regular, CTA Bilaterally. No: Rales, Rhonchi, Wheezes Gastrointestinal: Yes: Normal Bowel Sounds, Soft. No: Distention, Tenderness Extremities: Edema LLE: Trace, RLE: Trace [employer]: No tremors or agitation non focal exam. Labs: CBC, BMP 04/01/18 05:30 04/01/18 05:30 INR, PTT INR 1.06 (0.83-1.09) 03/31/18 06:30 Problem List - Problems (1) Hypertensive urgency Assessment/Plan: Due to non compliance resume home meds BP is better controlled on amlodipine and Zocor Code(s): I16.0 - HYPERTENSIVE URGENCY (2) Alcohol dependence with uncomplicated withdrawal Assessment/Plan: Cont withdrawal protocol observe for DTS last drink was on Thursday night, accepted in Detox program at [facility] Code(s): F10.230 - ALCOHOL DEPENDENCE WITH WITHDRAWAL, UNCOMPLICATED (3) Uncontrolled diabetes mellitus Assessment/Plan: Due to non complaint optimize Glycemic control add basal insulin , HBa!C > 10 add Glipizide and Januvia considering ETOH abuse will defer Metformin Code(s): E11.65 - TYPE 2 DIABETES MELLITUS WITH HYPERGLYCEMIA Qualifiers: Diabetes mellitus type: type 2 Glycemic state: with hyperglycemia Qualified Code(s): E11.65 - Type 2 diabetes mellitus with hyperglycemia (4) Cannabis dependence Assessment/Plan: no active issue Code(s): F12.20 - CANNABIS DEPENDENCE, UNCOMPLICATED (5) MIN (acute kidney injury) Assessment/Plan: Improving on IV Hydration Code(s): N17.9 - ACUTE KIDNEY FAILURE, UNSPECIFIED (6) Obesity Assessment/Plan: Nutritional consult as out patient Code(s): E66.9 - OBESITY, UNSPECIFIED Qualifiers: Obesity type: unspecified obesity type (7) Chest pain Assessment/Plan: CAd risks but atypical CP no acute St T Changes serial CE nad EKG are non dynamic, ECHO shows mildly reduced EF probably due to Alcohal induced or Hypertensive again refused for Stress test today as he was hungry will F/U Cardiology input. add ASA 81 mg no B Blockers unsure about cocaine abuse HR is low no clinical sign of Decompensation CHF Code(s): R07.9 - CHEST PAIN, UNSPECIFIED (8) Urethral discharge Assessment/Plan: C/O urethral discharge no dysuria ir fever UA and U culture, normal urine Gonorrhea and chlamydia pending will treat empiric with 1 gm Azithromycin patient has PCN allergy. Code(s): R36.9 - URETHRAL DISCHARGE, UNSPECIFIED
--- NOTE | 2018-04-01 10:31 | PN ---
Progress Note (short form) - Note Progress Note: s: no cp sob palps dizzy o: Vital Signs Period Temp Pulse Resp BP Sys/Christina Pulse Ox Last 24 Hr 97.9 F-98.5 F 68-90 18-20 125-175/75-127 99 Constitutional: Yes: Well Nourished, No Distress Eyes: Yes: Conjunctiva Clear Respiratory: Yes: Regular, CTA Bilaterally Gastrointestinal: Yes: Normal Bowel Sounds, Soft Cardiovascular: Yes: Regular Rate and Rhythm JVD: No Heart Sounds: Yes: S1, S2 Edema: No Integumentary: No: Jaundice diaphoresis Neurological: [id number] Current Medications Generic Name Dose Route Start Last Admin Trade Name Freq PRN Reason Stop Dose Admin Acetaminophen 650 mg 03/30/18 18:02 Tylenol - PO Q4H PRN FEVER Amlodipine Besylate 10 mg 03/31/18 10:00 04/01/18 09:01 Norvasc - PO 10 mg DAILY [facility] Administration Aspirin 81 mg 04/01/18 10:00 Asa - PO DAILY [facility] Chlordiazepoxide HCl 25 mg 03/31/18 23:00 04/01/18 05:50 Librium - PO 04/01/18 17:01 Not Given [id number] [facility] Chlordiazepoxide HCl 15 mg 04/01/18 23:00 Librium - PO 04/02/18 17:01 [id number] [facility] Chlordiazepoxide HCl 25 mg 03/30/18 18:08 Librium - PO 04/02/18 18:07 Q4H PRN WITHDRAWAL(CONT SUBST) Chlordiazepoxide HCl 10 mg 04/02/18 23:00 Librium - PO 04/03/18 17:01 [id number] [facility] Folic Acid 1 mg 03/31/18 10:30 04/01/18 09:01 Folic Acid - PO 1 mg DAILY [facility] Administration Hydrochlorothiazide 25 mg 04/01/18 10:00 04/01/18 09:19 Hctz - PO 25 mg DAILY [facility] Administration Insulin Aspart 1 vial 03/30/18 22:00 04/01/18 07:45 Novolog Vial Sliding Scale - SQ 6 units ACHS [facility] Administration Protocol Losartan Potassium 50 mg 03/30/18 18:15 04/01/18 09:01 Cozaar - PO 50 mg DAILY [facility] Administration Ondansetron HCl 4 mg 03/30/18 18:02 Zofran Injection IVPUSH Q6H PRN NAUSEA Sitagliptin Phosphate 50 mg 04/02/18 07:00 Januvia - PO DAILY@0700 [facility] Thiamine HCl 100 mg 03/31/18 10:30 04/01/18 09:01 Vitamin B1 - PO 100 mg DAILY [facility] Administration 04/01/18 05:30 04/01/18 05:30 Assessment/Plan EKG: sinus, LAE, LVH CXR: no acute process tele: sr, occ pvcs Chest pain - trop neg x 3 - EKG no ischemic changes - cp resolved - echo ordered but results nondiagnostic - given history of exertional chest pain that is worsening, nuc stress ordered but pt has refused it yesterday and again today. He says he doesn't feel like doing stress test. It was explained to him that his chest pain has not fully been evaluated without the stress test and he is at risk of NM or if work up is not complete. He still declines stress test, wants to go back to detox. Pt was instructed to f/u in office. MIN - improved with IVF HTN - improving on amlodipine, cozaar DM - not controlled - manage per primary team EtOH withdrawal - on librium protocol per primary team Smoking - encouraged smoking cessation
[2018-04-01] MEDS ORDERED: PT OWN MED DRAWER 7, Y5N ONE (10:39)
--- NOTE | 2018-04-01 10:50 | DS ---
Physical Examination Vital Signs: Vital Signs Temperature 98.1 F 04/01/18 08:59 Pulse Rate 82 04/01/18 08:59 Respiratory Rate 20 04/01/18 08:59 Blood Pressure 125/75 04/01/18 08:59 O2 Sat by Pulse Oximetry (%) 99 03/31/18 21:00 Constitutional: :Disheveled man Well Nourished, No Distress, Calm HENT: Yes: Atraumatic, Normocephalic, Conjunctiva Clear, EOM Intact, PERRL Cardiovascular: Regular Rate and Rhythm. No: Gallop, Murmur, Rub Respiratory:Regular, CTA Bilaterally. No: Rales, Rhonchi, Wheezes Gastrointestinal: Yes: Normal Bowel Sounds, Soft. No: Distention, Tenderness Extremities: Edema LLE: Trace, RLE: Trace [employer]: No tremors or agittaion non focal exam. Labs: CBC, BMP 04/01/18 05:30 04/01/18 05:30 CBC,CMP WBC 3.2 K/mm3 (4.0-10.0) L 04/01/18 05:30 RBC 5.06 M/mm3 (4.00-5.60) 04/01/18 05:30 Hgb 14.5 GM/dL (11.7-16.9) 04/01/18 05:30 Hct 43.3 % (35.4-49) 04/01/18 05:30 MCV 85.7 fl (80-96) 04/01/18 05:30 MCH 28.7 pg (25.7-33.7) 04/01/18 05:30 MCHC 33.5 g/dl (32.0-35.9) 04/01/18 05:30 RDW 13.2 % (11.9-15.9) 04/01/18 05:30 Plt Count 148 K/MM3 (134-434) 04/01/18 05:30 MPV 9.3 fl (7.5-11.1) 04/01/18 05:30 Absolute Neuts (auto) 1.5 K/mm3 (1.5-8.0) 04/01/18 05:30 Neutrophils % 47.5 % (42.8-82.8) 04/01/18 05:30 Lymphocytes % 43.0 % (8-40) H 04/01/18 05:30 Monocytes % 6.6 % (3.8-10.2) 04/01/18 05:30 Eosinophils % 2.5 % (0-4.5) 04/01/18 05:30 Basophils % 0.4 % (0-2.0) 04/01/18 05:30 Nucleated RBC % 0 % (0-0) 04/01/18 05:30 Sodium 138 mmol/L (136-145) 04/01/18 05:30 Potassium 3.6 mmol/L (3.5-5.1) 04/01/18 05:30 Chloride 102 mmol/L (98-107) 04/01/18 05:30 Carbon Dioxide 28 mmol/L (21-32) 04/01/18 05:30 Anion Gap 8 MMOL/L (8-16) 04/01/18 05:30 BUN 10 mg/dL (7-18) 04/01/18 05:30 Creatinine 1.2 mg/dL (0.55-1.3) 04/01/18 05:30 Creat Clearance w eGFR > 60 (>60) 04/01/18 05:30 POC Glucometer 274 UNITS (80-120) 04/01/18 05:31 Random Glucose 264 mg/dL (74-106) H 04/01/18 05:30 Hemoglobin A1c % 11.3 % (4.2-6.3) H 03/31/18 05:30 Serum Osmolality 311 mosm/kg (278-305) H 03/30/18 15:38 Calcium 8.7 mg/dL (8.5-10.1) 04/01/18 05:30 Phosphorus 3.3 mg/dL (2.5-4.9) 03/31/18 05:30 Magnesium 1.9 mg/dL (1.8-2.4) 03/31/18 05:30 Total Bilirubin 0.6 mg/dL (0.2-1) 03/30/18 15:25 AST 15 U/L (15-37) 03/30/18 15:25 ALT 27 U/L (13-61) 03/30/18 15:25 Alkaline Phosphatase 139 U/L (45-117) H 03/30/18 15:25 Creatine Kinase 247 IU/L (26-308) 03/31/18 05:30 Creatine Kinase Index 1.2 % (0.0-5.0) 03/31/18 05:30 CK-MB (CK-2) 3.0 ng/mL (0.5-3.6) 03/31/18 05:30 Troponin I 0.02 ng/ml (0.00-0.05) 03/31/18 05:30 Total Protein 6.7 g/dl (6.4-8.2) 03/30/18 15:25 Albumin 3.5 g/dl (3.4-5.0) 03/30/18 15:25 Triglycerides 142 mg/dL (0-150) 03/31/18 06:30 Cholesterol 141 mg/dL (50-200) 03/31/18 06:30 Total LDL Cholesterol 95 mg/dL (5-100) 03/31/18 06:30 HDL Cholesterol 34 mg/dL (40-60) L 03/31/18 06:30 Discharge Summary Reason For Visit: ALCOHOL DEPENDENCE; ESSENTIAL HYPERTENSION Current Active Problems MIN (acute kidney injury) (Acute) Alcohol dependence (Acute) Chest pain (Acute) Hyperglycemia (Acute) Hypertension (Acute) Hypertensive urgency (Acute) STI (sexually transmitted infection) (Acute) Tobacco abuse (Acute) Uncontrolled diabetes mellitus (Acute) Urethral discharge (Acute) Type II diabetes mellitus (Chronic) Hospital Course: 48 yrs old man H/O Polysubstance abuse active smoking ETOH and marijuana, H/O HTN, T2DM non compliant with meds for past 2 wks, patient was admitted at [facility] Detox program after ETOH intoxication there his blood pressure was very uncontrolled and FS was high transferred to Ed for evaluation, admitted with Hypertensive urgency and uncontrolled DM with Hyperglycemia, medical management optimized BP meds added Amlodipine 10 mg Losartan 50 mg and HCTZ 25 mg BP is well controlled HBA1C > 10 so Januvia and Glipizide added Metformin deferred for alcohal abuse, patient ECHO shows low EF probably due to uncontrolled HTN or ETOH indiced , patient was offered NST as he also c/o chest pain in the past but he refused twice, evaluted by driver examiner at present chest pain free and normal serial CE and EKG (no Ischemic changes) re evaluated by cardiology recommended out patient F/U as at this hospitalization no anginal symptms and ACs w/u was -ve , if patient agrees NST will be done as out patient. Condition: Improved - Instructions Diet, Activity, Other Instructions: Low Salt low cholesterol Diabetic Referrals: Miguel Jefferson MD [Staff Physician] - 2 Weeks Disposition: TRANSFER ACUTE CARE/OTHER HOSP - Home Medications Comprehensive Discharge Medication List: Ambulatory Orders Amlodipine Besylate [Norvasc -] 10 mg PO DAILY #30 tablet 01/23/17 Aspirin [ASA -] 81 mg PO DAILY tab.chew 04/01/18 Folic Acid - 1 mg PO DAILY tablet 04/01/18 Glipizide 5 mg PO AM #30 tablet 04/01/18 Losartan Potassium [Cozaar -] 50 mg PO DAILY tablet 04/01/18 Sitagliptin Phosphate [Januvia -] 50 mg PO DAILY@0700 tablet 04/01/18 Thiamine HCl [Vitamin B1 -] 100 mg PO DAILY tablet 04/01/18
--- NOTE | 2018-04-01 11:12 | EKG ---
Test Reason : Blood Pressure : / mmHG Vent. Rate : 061 BPM Atrial Rate : 061 BPM P-R Int : 168 ms QRS Dur : 108 ms QT Int : 438 ms P-R-T Axes : 041 022 017 degrees QTc Int : 440 ms NORMAL SINUS RHYTHM POSSIBLE LEFT ATRIAL ENLARGEMENT LEFT VENTRICULAR HYPERTROPHY ABNORMAL ECG WHEN COMPARED WITH ECG OF 12-JAN-2018 18:52, T WAVE AMPLITUDE HAS INCREASED IN LATERAL LEADS Confirmed by VIV CASPER, LILLY ([id number]) on 04/01/2018 11:12:10 AM Referred By: Confirmed By:LILLY NAM MD
[2018-04-01] MEDS ORDERED: chlordiazePOXIDE 5 MG CAPSULE PO SCH (23:00)
[2018-04-02] MEDS ORDERED: sitaGLIPtin PHOSPHATE 50 MG TABLET PO SCH (07:00)
[2018-04-02] MEDS ORDERED: glipiZIDE 5 MG TABLET (FP) PO SCH (07:00)
[2018-04-02] MEDS ORDERED: chlordiazePOXIDE HCL 10 MG CAPSULE PO SCH (23:00)
== END 2018-04-01 11:54 | disposition other institution (70) ==
LOC: JER 14:39 → JERBED 17:38 → J4W 20:41
PROVIDERS: ADMIT Internal Medicine; ATTEND Internal Medicine
PROC: 3E0337Z Introduction of Electrolytic and Water Balance Substance into Peripheral Vein, Percutaneous Approach (ICD-10-PCS; principal; 2018-03-30)
PROC: 3E013VG Introduction of Insulin into Subcutaneous Tissue, Percutaneous Approach (ICD-10-PCS; 2018-03-30)
DX: I16.0 Hypertensive urgency (principal); E11.65 Type 2 diabetes mellitus with hyperglycemia; N17.9 Acute kidney failure, unspecified; R36.9 Urethral discharge, unspecified; I10 Essential (primary) hypertension; A64 Unspecified sexually transmitted disease; F10.230 Alcohol dependence with withdrawal, uncomplicated; F12.20 Cannabis dependence, uncomplicated; R07.9 Chest pain, unspecified; E66.9 Obesity, unspecified; Z68.39 Body mass index [BMI] 39.0-39.9, adult; F17.210 Nicotine dependence, cigarettes, uncomplicated; Z79.84 Long term (current) use of oral hypoglycemic drugs; Z88.0 Allergy status to penicillin
CPT/HCPCS: 36415; 71046-TC-FY; 80048; 80053; 80061; 81003; 82009; 82550; 82553; 82962; 83036; 83721; 83735; 83930; 83935; 84100; 84300; 84484; 85025; 85610; 86593; 87086; 87491; 87591; 87661; 93005; 93010; 93306-TC; 96372; 99284-25; G0378; J7030

== ENCOUNTER 2018-04-06 12:10 | Inpatient (IN) | payer OTHER ==
[2018-04-06 13:17] VITALS: BMI 37.4
--- NOTE | 2018-04-06 14:38 | HP ---
CIWA Score Nausea/Vomitin Muscle Tremors: 2 Anxiety: 2 Agitation: 2 Paroxysmal Sweats: 1-Minimal Palms Moist Orientation: 0-Oriented Tacttile Disturbances: 1-Very Mild Itch/Numbness Auditory Disturbances: 1-Very Mild Visual Disturbances: 0-None Headache: 2-Mild CIWA-Ar Total Score: 13 - Admission Criteria OASAS Guidelines: Admission for Medically Managed Detox: Requires at least one of the followin. CIWA greater than 12 2. Seizures within the past 24 hours 3. Delirium tremens within the past 24 hours 4. Hallucinations within the past 24 hours 5. Acute intervention needed for co occurring medical disorder 6. Acute intervention needed for co occurring psychiatric disorder 7. Severe withdrawal that cannot be handled at a lower level of care (continued vomiting, continued diarrhea, abnormal vital signs) requiring intravenous medication and/or fluids 8. Patient presents the following: CIWA greater than 12, Acute intervention needed for co-occurring med or psych disorder Admission Criteria Met: Admission criteria met Admission ROS S - HPI Chief Complaint: i need help to stop drinking alcohol and cocaine Allergies/Adverse Reactions: Allergies Allergy/AdvReac Type Severity Reaction Status Date / Time penicillin G Allergy Severe Swelling Verified 04/06/18 14:27 red meat Allergy Severe Hives Uncoded 04/06/18 14:27 History of Present Illness: this 48 years old male with alcohol and cocaine dependence seeking detox, withdrawal symptom,last detox 03/30/18 to 04/01/18 not completed,multiple admissions but relapsing plan to go to rehab adter detox history of hypertension,type 2 dm nicotine dependence obese eczema longest period of sobriety 6 months Exam Limitations: No Limitations - Ebola screening Have you traveled outside of the country in the last 21 days: No Have you had contact with anyone from an Ebola affected area: No Have you been sick,other than usual withdrawal symptoms: No Do you have a fever: No - Review of Systems Constitutional: Loss of Appetite, Malaise, Night Sweats, Changes in sleep, Weakness EENT: reports: Nose Congestion Respiratory: reports: No Symptoms reported Cardiac: reports: No Symptoms Reported GI: reports: Diarrhea, Nausea, Poor Appetite, Abdominal cramping : reports: No Symptoms Reported Musculoskeletal: reports: Back Pain, Muscle Pain Integumentary: reports: Dryness Neuro: reports: Headache, Tremors Endocrine: reports: No Symptoms Reported Hematology: reports: No Symptoms Reported Psychiatric: reports: No Sypmtoms Reported, Judgement Intact, Mood/Affect Appropiate, Orientated x3 Other Systems: Reviewed and Negative Patient History - Patient Medical History Hx Anemia: No Hx Asthma: No Hx Chronic Obstructive Pulmonary Disease (COPD): No Hx Cancer: No Hx Cardiac Disorders: No Hx Congestive Heart Failure: No Hx Hypertension: Yes (on med) Hx Hypercholesterolemia: Yes (on med) Hx Pacemaker: No HX Cerebrovascular Accident: No Hx Seizures: No Hx Dementia: No Hx Diabetes: Yes (NIDDM) Hx Gastrointestinal Disorders: No Hx Liver Disease: No Hx Genitourinary Disorders: No Hx Sexually Transmitted Disorders: Yes Hx Renal Disease (ESRD): No Hx Thyroid Disease: No Hx Human Immunodeficiency Virus (HIV): No (03/11 negative) Hx Hepatitis C: No Hx Depression: No Hx Suicide Attempt: No Hx Bipolar Disorder: No Hx Schizophrenia: No Other Medical History: no sucidal,no homicidal, - Patient Surgical History Past Surgical History: No Hx Neurologic Surgery: No Hx Cataract Extraction: No Hx Cardiac Surgery: No Hx Lung Surgery: No Hx Breast Surgery: No Hx Breast Biopsy: No Hx Abdominal Surgery: No Hx Appendectomy: No Hx Cholecystectomy: No Hx Genitourinary Surgery: No Hx Section: No Hx Orthopedic Surgery: No Hx Hysterectomy: No Anesthesia Reaction: No - PPD History Previous Implant?: Yes Date: 01/14/18 Results: 0 mm PPD to be Administered?: No - Smoking Cessation Smoking history: Current every day smoker Have you smoked in the past 12 months: Yes Aproximately how many cigarettes per day: 10 If you are a former smoker, when did you quit?: 09/2016 Cigars Per Day: 0 Hx Chewing Tobacco Use: No Initiated information on smoking cessation: Yes 'Breaking Loose' booklet given: 04/06/18 - Substance & Tx. History Hx Alcohol Use: Yes Hx Substance Use: Yes Substance Use Type: Alcohol, Marijuana Hx Substance Use [facility] not completed) - Substances Abused Alcohol Route: Oral Frequency: Daily Amount used: 2 PINTS/ 6PK BEER Age of first use: 17 Date of Last Use: 04/05/18 Marijuana/Hashish Route: Smoking Frequency: Daily Amount used: 2-3 BAGS Age of first use: 19 Date of Last Use: 04/03/18 Family Disease History - Family Disease History Family Disease History: Diabetes: Grandparent, Mother (htn), Heart Disease: Mother, Respiratory: Sister (asthma), Other: Father (,alcohol), Mother Admission Physical Exam [facility] - Vital Signs Vital Signs: Vital Signs - 24 hr 04/06/18 13:15 Temperature 97.6 F Pulse Rate 101 H Respiratory 19 Rate Blood Pressure 143/95 - Physical General Appearance: Yes: Moderate Distress, Tremorous, Irritable, Sweating, Anxious HEENTM: Yes: Normal ENT Inspection, [place], Pharynx Normal Respiratory: Yes: Lungs Clear, Normal Breath Sounds, No Respiratory Distress Neck: Yes: Within Normal Limits, Supple, Trachea in good position Breast: Yes: Within Normal Limits Cardiology: Yes: Tachycardia Abdominal: Yes: Within Normal Limits, Normal Bowel Sounds, Non Tender, Soft Genitourinary: Yes: Within Normal Limits, Other (treated for non specific erethritis) Musculoskeletal: Yes: Back pain, Muscle Pain Extremities: Yes: Tremors Neurological: Yes: financial systems director II-XII NML intact, Fully Oriented, Alert, Motor Strength 5/5 Integumentary: Yes: Dry Lymphatic: Yes: Within Normal Limits - Diagnostic (1) Alcohol dependence with uncomplicated withdrawal Current Visit: No Status: Acute (2) Uncontrolled diabetes mellitus Current Visit: No Status: Acute Qualifiers: Diabetes mellitus type: type 2 Glycemic state: with hyperglycemia Qualified Code(s): E11.65 - Type 2 diabetes mellitus with hyperglycemia (3) Cannabis dependence, uncomplicated Current Visit: No Status: Chronic (4) Chronic back pain Current Visit: No Status: Chronic Qualifiers: Back pain location: low back pain Back pain laterality: right Sciatica presence: without sciatica Qualified Code(s): M54.5 - Low back pain (5) Eczema Current Visit: No Status: Chronic Qualifiers: Eczema type: unspecified Qualified Code(s): L30.9 - Dermatitis, unspecified (6) Essential hypertension Current Visit: No Status: Chronic (7) Obesity Current Visit: No Status: Chronic Qualifiers: Obesity type: unspecified obesity type Cleared for Admission S - Detox or Rehab [facility] Level of Care: Medically Managed Detox Regimen/Protocol: Librium S Breath Alcohol Content Breath Alcohol Content: 0 Urine Drug Screen - Results Drug Screen Negative: No Urine Drug Screen Results: THC-Marijuana, BZO-Benzodiazepines
[2018-04-06] MEDS ORDERED: guaiFENesin/D-METHORPHAN HB 10 ML UNIT-DOSE CUPS PO PRN (14:49)
[2018-04-06] MEDS ORDERED: chlordiazePOXIDE HCL 25 MG CAPSULE PO PRN (14:49)
[2018-04-06] MEDS ORDERED: MENTHOL/PHENOL 1 EACH UD MM PRN (14:49)
[2018-04-06] MEDS ORDERED: NICOTINE POLACRILEX 2 MG GUM BC PRN (14:49)
[2018-04-06] MEDS ORDERED: MAGNESIUM CITRATE 300 ML BOTTLE PO PRN (14:49)
[2018-04-06] MEDS ORDERED: MAGNESIUM HYDROX 2400MG/30ML ORAL SUSPENSION 30 ML CUP PO PRN (14:49)
[2018-04-06] MEDS ORDERED: MAG HYDROX/AL HYDROX/SIMETH 30 ML UNIT-DOSE CUP PO PRN (14:49)
[2018-04-06] MEDS ORDERED: IBUPROFEN 400 MG TABLET (FP) PO PRN (14:49)
[2018-04-06] MEDS ORDERED: ACETAMINOPHEN 325 MG TABLET (FP) PO PRN (14:49)
[2018-04-06] MEDS ORDERED: LOPERAMIDE HCL 2 MG CAPSULE PO PRN (14:49)
[2018-04-06] MEDS ORDERED: P-EPHED 60MG/TRIPROLIDI 2.5MG TABLET PO PRN (14:49)
[2018-04-06] MEDS ORDERED: INSULIN (NOVOLOG) ASPART 100 UNITS/ML 10ML VIAL ONE ×2 (16:55→21:44)
[2018-04-06] MEDS: INSULIN (NOVOLOG) ASPART 100 UNITS/ML 10ML VIAL SQ SCH ×2 (17:28→22:27)
[2018-04-06] MEDS: chlordiazePOXIDE HCL 25 MG CAPSULE PO SCH ×2 (17:28→22:27)
[2018-04-06] MEDS: metFORMIN HCL 500 MG TABLET (FP) PO SCH (17:28)
[2018-04-06 18:11] LABS: URINE APPEARANCE CLEAR; URINE BILIRUBIN NEGATIVE (<2.0 mg/dL); URINE COLOR LTYELLOW; URINE GLUCOSE (UA) 3+ (NEGATIVE); URINE KETONE NEGATIVE (NEGATIVE); URINE LEUK ESTERASE NEGATIVE (NEGATIVE); URINE NITRITE NEGATIVE (NEGATIVE); URINE PROTEIN NEGATIVE (NEGATIVE); URINE UROBILINOGEN NEGATIVE mg/dL (0.2-1.0)
[2018-04-06] MEDS ORDERED: cloNIDine HCL 0.1 MG TABLET PO ONE (21:34)
--- NOTE | 2018-04-06 21:35 | PN ---
[facility] Progress Note Note: Patient non-compliant w/ non-concentrated glucose diet. CMP POC Glucometer 546 UNITS (80-120) 04/06/18 14:38 Current BGM = 482. Vital Signs 04/06/18 17:29 Temperature 97.5 F L Pulse Rate 87 Respiratory 18 Rate Blood Pressure 145/78 Current B/P: 155/116. A: Withdrawal symptoms Hypertension DM w/Hyperglycemia Plan: Give Novolog 12 uits SQ once Give CloNidine 0.1 mg Po Once Continue to monitor B/P and BGM. Encourage protein snack
[2018-04-06] MEDS ORDERED: MELATONIN 5 MG TABLETS PO PRN (22:00)
[2018-04-06] MEDS: THIAMINE HCL 100 MG TABLET (FP) PO SCH (22:26)
[2018-04-07] MEDS: chlordiazePOXIDE HCL 25 MG CAPSULE PO SCH ×4 (05:36→22:17)
[2018-04-07] MEDS: metFORMIN HCL 500 MG TABLET (FP) PO SCH ×2 (06:27→16:52)
[2018-04-07] MEDS ORDERED: INSULIN (NOVOLOG) ASPART 100 UNITS/ML 10ML VIAL ONE ×4 (06:32→21:27)
[2018-04-07] MEDS: INSULIN (NOVOLOG) ASPART 100 UNITS/ML 10ML VIAL SQ SCH ×4 (06:33→22:17)
[2018-04-07 10:09] LABS: HEMATOCRIT 40.8 % (35.4-49); HEMOGLOBIN 13.5 GM/dL (11.7-16.9); MCH 28.2 pg (25.7-33.7); MCHC 33.1 g/dl (32.0-35.9); MEAN CELL VOLUME 85.4 fl (80-96); PLATELET COUNT 136 K/MM3 (134-434); RBC 4.78 M/mm3 (4.00-5.60); RDW 13.3 % (11.9-15.9); WHITE BLOOD COUNT 3.2 K/mm3 (4.0-10.0)
[2018-04-07 10:47] LABS: ALBUMIN 3.6 g/dl (3.4-5.0); ALK PHOS 125 U/L (45-117); ANION GAP 10 MMOL/L (8-16); BILIRUBIN,TOTAL 0.8 mg/dL (0.2-1); BLOOD UREA NITROGEN 9 mg/dL (7-18); CALCIUM 8.5 mg/dL (8.5-10.1); CHLORIDE 103 mmol/L (98-107); CO2 27 mmol/L (21-32); CREATININE 1.1 mg/dL (0.55-1.3); GLUCOSE,RANDOM 249 mg/dL (74-106); POTASSIUM 3.6 mmol/L (3.5-5.1); SGOT/AST 10 U/L (15-37); SGPT/ALT 22 U/L (13-61); SODIUM 139 mmol/L (136-145); TOT PROT 6.7 g/dl (6.4-8.2)
--- NOTE | 2018-04-07 10:59 | PN ---
[facility] CIWA - CIWA Score Nausea/Vomitin-No Nausea/No Vomiting Muscle Tremors: 3 Anxiety: 3 Agitation: 3 Paroxysmal Sweats: 3 Orientation: 0-Oriented Tacttile Disturbances: 0-None Auditory Disturbances: 0-None Visual Disturbances: 0-None Headache: 0-None Present CIWA-Ar Total Score: 12 S Progress Note (SOAP) Subjective: sweats shakes tired interrupted sleep groggy Objective: 04/07/18 10:56 Vital Signs Temperature 97.7 F 04/07/18 10:01 Pulse Rate 77 04/07/18 10:01 Respiratory Rate 16 04/07/18 10:01 Blood Pressure 156/95 04/07/18 10:01 O2 Sat by Pulse Oximetry (%) Laboratory Tests 04/06/18 04/06/18 04/06/18 14:38 16:32 16:56 WBC RBC Hgb Hct MCV MCH MCHC RDW Plt Count MPV Sodium Potassium Chloride Carbon Dioxide Anion Gap BUN Creatinine Creat Clearance w eGFR POC Glucometer 546 519 Random Glucose Calcium Total Bilirubin AST ALT Alkaline Phosphatase Total Protein Albumin Urine Color Ltyellow Urine Appearance Clear Urine pH 6.0 Ur Specific [place] 1.039 H Urine Protein Negative Urine Glucose (UA) 3+ H Urine Ketones Negative Urine Blood Negative Urine Nitrite Negative Urine Bilirubin Negative Urine Urobilinogen Negative Ur Leukocyte Esterase Negative 04/06/18 04/07/18 04/07/18 21:28 05:37 07:00 WBC 3.2 L RBC 4.78 Hgb 13.5 Hct 40.8 MCV 85.4 MCH 28.2 MCHC 33.1 RDW 13.3 Plt Count 136 MPV 10.0 Sodium Potassium Chloride Carbon Dioxide Anion Gap BUN Creatinine Creat Clearance w eGFR POC Glucometer 482 327 Random Glucose Calcium Total Bilirubin AST ALT Alkaline Phosphatase Total Protein Albumin Urine Color Urine Appearance Urine pH Ur Specific [place] Urine Protein Urine Glucose (UA) Urine Ketones Urine Blood Urine Nitrite Urine Bilirubin Urine Urobilinogen Ur Leukocyte Esterase 04/07/18 07:00 WBC RBC Hgb Hct MCV MCH MCHC RDW Plt Count MPV Sodium 139 Potassium 3.6 Chloride 103 Carbon Dioxide 27 Anion Gap 10 BUN 9 Creatinine 1.1 Creat Clearance w eGFR > 60 POC Glucometer Random Glucose 249 H Calcium 8.5 Total Bilirubin 0.8 AST 10 L ALT 22 Alkaline Phosphatase 125 H Total Protein 6.7 Albumin 3.6 Urine Color Urine Appearance Urine pH Ur Specific [place] Urine Protein Urine Glucose (UA) Urine Ketones Urine Blood Urine Nitrite Urine Bilirubin Urine Urobilinogen Ur Leukocyte Esterase aaox3 ambulating no acute distress Assessment: 04/07/18 10:57 withdrawal sx Plan: increase fluids hold 10am librium continue detox
[2018-04-07] MEDS: PRENATAL VITAMINS W/ FOLIC ACID TABLET (FP) PO SCH (11:16)
[2018-04-07] MEDS: amLODIPine BESYLATE 10 MG TABLET (FP) PO SCH (11:16)
--- NOTE | 2018-04-07 11:37 | EKG ---
Test Reason : Blood Pressure : / mmHG Vent. Rate : 090 BPM Atrial Rate : 090 BPM P-R Int : 174 ms QRS Dur : 106 ms QT Int : 368 ms P-R-T Axes : 044 020 007 degrees QTc Int : 450 ms NORMAL SINUS RHYTHM NORMAL ECG WHEN COMPARED WITH ECG OF 30-MAR-2018 14:58, NO SIGNIFICANT CHANGE WAS FOUND Confirmed by JAMEEL ECHEVARRIA MD ([id number]) on 04/07/2018 11:36:43 AM Referred By: Confirmed By:JAMEEL ECHEVARRIA MD
[2018-04-07] MEDS: THIAMINE HCL 100 MG TABLET (FP) PO SCH (22:17)
[2018-04-08] MEDS ORDERED: INSULIN (NOVOLOG) ASPART 100 UNITS/ML 10ML VIAL ONE ×2 (06:22→11:54)
[2018-04-08] MEDS: chlordiazePOXIDE HCL 25 MG CAPSULE PO SCH ×2 (07:00→10:45)
[2018-04-08] MEDS: INSULIN (NOVOLOG) ASPART 100 UNITS/ML 10ML VIAL SQ SCH ×2 (07:01→11:59)
[2018-04-08] MEDS: metFORMIN HCL 500 MG TABLET (FP) PO SCH (07:01)
--- NOTE | 2018-04-08 10:07 | PN ---
[facility] CIWA - CIWA Score Nausea/Vomitin-No Nausea/No Vomiting Muscle Tremors: 4-Moderate,w/Arms Extend Anxiety: 3 Agitation: 3 Paroxysmal Sweats: 3 Orientation: 0-Oriented Tacttile Disturbances: 0-None Auditory Disturbances: 0-None Visual Disturbances: 0-None Headache: 0-None Present CIWA-Ar Total Score: 13 S Progress Note (SOAP) Subjective: irritable agitation sweats interrupted sleep body aches Objective: 04/08/18 10:06 Vital Signs Temperature 97.5 F L 04/08/18 07:16 Pulse Rate 80 04/08/18 09:26 Respiratory Rate 18 04/08/18 09:26 Blood Pressure 142/91 04/08/18 09:26 O2 Sat by Pulse Oximetry (%) Laboratory Tests 04/06/18 04/06/18 04/06/18 14:38 16:32 16:56 WBC RBC Hgb Hct MCV MCH MCHC RDW Plt Count MPV Sodium Potassium Chloride Carbon Dioxide Anion Gap BUN Creatinine Creat Clearance w eGFR POC Glucometer 546 519 Random Glucose Calcium Total Bilirubin AST ALT Alkaline Phosphatase Total Protein Albumin Urine Color Ltyellow Urine Appearance Clear Urine pH 6.0 Ur Specific [place] 1.039 H Urine Protein Negative Urine Glucose (UA) 3+ H Urine Ketones Negative Urine Blood Negative Urine Nitrite Negative Urine Bilirubin Negative Urine Urobilinogen Negative Ur Leukocyte Esterase Negative RPR Titer 04/06/18 04/07/18 04/07/18 21:28 05:37 07:00 WBC 3.2 L RBC 4.78 Hgb 13.5 Hct 40.8 MCV 85.4 MCH 28.2 MCHC 33.1 RDW 13.3 Plt Count 136 MPV 10.0 Sodium Potassium Chloride Carbon Dioxide Anion Gap BUN Creatinine Creat Clearance w eGFR POC Glucometer 482 327 Random Glucose Calcium Total Bilirubin AST ALT Alkaline Phosphatase Total Protein Albumin Urine Color Urine Appearance Urine pH Ur Specific [place] Urine Protein Urine Glucose (UA) Urine Ketones Urine Blood Urine Nitrite Urine Bilirubin Urine Urobilinogen Ur Leukocyte Esterase RPR Titer 04/07/18 04/07/18 04/07/18 07:00 07:00 11:58 WBC RBC Hgb Hct MCV MCH MCHC RDW Plt Count MPV Sodium 139 Potassium 3.6 Chloride 103 Carbon Dioxide 27 Anion Gap 10 BUN 9 Creatinine 1.1 Creat Clearance w eGFR > 60 POC Glucometer 292 Random Glucose 249 H Calcium 8.5 Total Bilirubin 0.8 AST 10 L ALT 22 Alkaline Phosphatase 125 H Total Protein 6.7 Albumin 3.6 Urine Color Urine Appearance Urine pH Ur Specific [place] Urine Protein Urine Glucose (UA) Urine Ketones Urine Blood Urine Nitrite Urine Bilirubin Urine Urobilinogen Ur Leukocyte Esterase RPR Titer Nonreactive 04/07/18 04/08/18 16:26 06:17 WBC RBC Hgb Hct MCV MCH MCHC RDW Plt Count MPV Sodium Potassium Chloride Carbon Dioxide Anion Gap BUN Creatinine Creat Clearance w eGFR POC Glucometer 364 344 Random Glucose Calcium Total Bilirubin AST ALT Alkaline Phosphatase Total Protein Albumin Urine Color Urine Appearance Urine pH Ur Specific [place] Urine Protein Urine Glucose (UA) Urine Ketones Urine Blood Urine Nitrite Urine Bilirubin Urine Urobilinogen Ur Leukocyte Esterase RPR Titer aaox3 ambulating no acute distress Assessment: 04/08/18 10:06 withdrawal sx Plan: continue detox increase fluids
[2018-04-08] MEDS: amLODIPine BESYLATE 10 MG TABLET (FP) PO SCH (10:44)
[2018-04-08] MEDS: PRENATAL VITAMINS W/ FOLIC ACID TABLET (FP) PO SCH (10:45)
[2018-04-08 13:31] VITALS: BP 150/77; PULSE 81; TEMP 97.9
--- NOTE | 2018-04-08 15:16 | PN ---
[facility] Progress Note Note: pt was in his room and broken glass was heard. Pt had broken the glass inside his room refused to state why. Pt had no visible cuts to his hands but there was broken glass noted. pt used a towel to break the glass. no other patient was inside the room. security, nursing, counselor and medical spoke to patient regarding why he destroyed private property and refused to verbalize. pt was escorted off the unit aaox3, no physical harm/cuts noted on skin/hands. pt states is was a bird that hit the glass however, no glass broken on the outside only inside of glass pane. pt was given d/c with referral to outpatient. pt left with no hesitation and did not resist.
[2018-04-08] MEDS ORDERED: chlordiazePOXIDE 5 MG CAPSULE PO SCH (17:00)
[2018-04-09] MEDS ORDERED: chlordiazePOXIDE HCL 10 MG CAPSULE PO SCH (17:00)
== END 2018-04-08 15:01 | disposition home or self-care (01) | DRG 775 ==
LOC: YASAS 12:10 → Y6N 14:46
PROC: HZ2ZZZZ Detoxification Services for Substance Abuse Treatment (ICD-10-PCS; principal; 2018-04-06)
DX: F10.230 Alcohol dependence with withdrawal, uncomplicated (principal); F12.20 Cannabis dependence, uncomplicated; I10 Essential (primary) hypertension; E11.65 Type 2 diabetes mellitus with hyperglycemia; Z79.84 Long term (current) use of oral hypoglycemic drugs; M54.5 Low back pain; G89.29 Other chronic pain; L30.9 Dermatitis, unspecified; E66.9 Obesity, unspecified; Z68.37 Body mass index [BMI] 37.0-37.9, adult; Z88.0 Allergy status to penicillin; Z91.018 Allergy to other foods
CPT/HCPCS: 36415; 80053; 81003; 82962; 85027; 86593; 93005; 93010; J0735

== ENCOUNTER 2023-10-02 18:09 | Inpatient (IN) | payer OTHER ==
[2023-10-02 20:10] VITALS: BMI 33.0
[2023-10-02] MEDS ORDERED: BENZOCAINE/MENTHOL (CHLORASEPTIC ) LOZENGE MM PRN (23:37)
[2023-10-02] MEDS ORDERED: NALOXONE HCL (KLOXXADO) 8 MG SPRAY NS PRN (23:37)
[2023-10-02] MEDS ORDERED: guaiFENesin 600 MG TABLET.ER (FP) PO PRN (23:37)
[2023-10-02] MEDS ORDERED: ONDANSETRON *ODT* 4 MG TABLET SL PRN (23:37)
[2023-10-02] MEDS ORDERED: POLYETHYLENE GLYCOL (HEALTHYLAX) 3350 17 GM PACKET PO PRN (23:37)
[2023-10-02] MEDS ORDERED: LOPERAMIDE HCL 2 MG CAPSULE PO PRN (23:37)
[2023-10-02] MEDS ORDERED: DICYCLOMINE HCL 10 MG CAPSULE PO PRN (23:37)
[2023-10-02] MEDS ORDERED: MAG HYDROX/AL HYDROX/SIMETH 30 ML UNIT-DOSE CUP PO PRN (23:37)
[2023-10-02] MEDS ORDERED: BENZONATATE 200 MG CAPSULE PO PRN (23:37)
[2023-10-02] MEDS ORDERED: BISMUTH SUBSALICYLATE 524 MG/30 ML PO PRN (23:37)
[2023-10-02] MEDS ORDERED: MAGNESIUM HYDROX 2400MG/30ML ORAL SUSPENSION 30 ML CUP PO PRN (23:37)
[2023-10-02] MEDS ORDERED: chlordiazePOXIDE HCL 25 MG CAPSULE PO PRN (23:37)
[2023-10-02] MEDS ORDERED: NALOXONE HCL 0.4 MG/ML VIAL IM PRN (23:37)
[2023-10-03] MEDS ORDERED: chlordiazePOXIDE HCL 25 MG CAPSULE ONE (00:17)
[2023-10-03] MEDS: chlordiazePOXIDE HCL 25 MG CAPSULE PO SCH (00:19)
[2023-10-03] MEDS: INSULIN ASPART SLIDING SCALE (NOVOLOG) 1 VIAL SQ SCH (06:15)
[2023-10-03] MEDS: PRENATAL VITAMINS W/ FOLIC ACID TABLET (FP) PO SCH (10:23)
[2023-10-03 14:53] LABS: CHLORIDE 107 mmol/L (98-107); POTASSIUM 3.7 mmol/L (3.5-5.1); SODIUM 140 mmol/L (136-145)
[2023-10-03 14:55] LABS: HEMATOCRIT 36.6 % (35.4-49); HEMOGLOBIN 12.5 GM/dL (11.7-16.9); MCH 29.5 pg (25.7-33.7); MCHC 34.1 g/dl (32.0-35.9); MEAN CELL VOLUME 86.4 fl (80-96); MEAN PLT VOLUME 8.5 fl (7.5-11.1); PLATELET COUNT 203 10^3/uL (134-434); RBC 4.23 M/mm3 (4.00-5.60); RDW 13.1 % (11.9-15.9); WHITE BLOOD COUNT 3.3 K/mm3 (4.0-10.0)
[2023-10-03 15:00] LABS: ALBUMIN 3.1 g/dl (3.4-5.0); ANION GAP 4 mmol/L (4-13); CALCIUM 8.5 mg/dL (8.5-10.1); CO2 28 mmol/L (21-32); GLUCOSE,RANDOM 195 mg/dL (74-106)
[2023-10-03 15:04] LABS: SGOT/AST 12 U/L (15-37); SGPT/ALT 20 U/L (13-61)
[2023-10-03 15:05] LABS: BILIRUBIN,TOTAL 0.8 mg/dL (0.2-1); TOT PROT 6.3 g/dl (6.4-8.2)
[2023-10-03 15:07] LABS: ALK PHOS 89 U/L (45-117)
[2023-10-03 15:08] LABS: BLOOD UREA NITROGEN 11.4 mg/dL (7-18)
[2023-10-03 15:12] LABS: CREATININE 1.1 mg/dL (0.55-1.3)
[2023-10-03] MEDS ORDERED: LOSARTAN POTASSIUM 25 MG TABLET PO SCH (22:00)
[2023-10-03] MEDS: METOPROLOL TARTRATE 25 MG TABLET (FP) PO ONE (22:33)
[2023-10-03] MEDS: MELATONIN 5 MG TABLETS PO SCH (22:34)
[2023-10-03] MEDS: THIAMINE 100 MG TABLET PO SCH (22:34)
[2023-10-04] MEDS: chlordiazePOXIDE HCL 25 MG CAPSULE PO SCH (06:00)
[2023-10-04] MEDS: metoPROLOL SUCCINATE 25 MG TAB.SR.24H (FP) PO SCH (10:22)
[2023-10-04] MEDS: ASPIRIN COATED 81 MG TABLET.EC PO SCH (10:22)
[2023-10-04] MEDS: ATORVASTATIN CA 40 MG TABLET (FP) PO SCH (22:10)
[2023-10-05] MEDS ORDERED: chlordiazePOXIDE HCL 10 MG CAPSULE PO PRN
[2023-10-05] MEDS: SACUBITRIL/VALSARTAN 49 MG-51 MG TABLET PO SCH (03:56)
[2023-10-05] MEDS: chlordiazePOXIDE HCL 10 MG CAPSULE PO SCH (05:22)
[2023-10-05] MEDS: hydrOXYzine PAMOATE 25 MG CAPSULE (FP) PO PRN (05:22)
[2023-10-05] MEDS: ACETAMINOPHEN 325 MG TABLET (FP) PO PRN (05:23)
[2023-10-05] MEDS: INSULIN (NOVOLOG) ASPART 100 UNITS/ML 10ML VIAL SQ ONE (21:33)
[2023-10-06] MEDS: chlordiazePOXIDE HCL 10 MG CAPSULE PO SCH (05:13)
[2023-10-06] MEDS ORDERED: INSULIN ASPART SLIDING SCALE (NOVOLOG) 1 VIAL SQ ONE (06:01)
[2023-10-06] MEDS: amLODIPine BESYLATE 10 MG TABLET (FP) PO SCH (09:45)
[2023-10-06] MEDS: metoPROLOL SUCCINATE 25 MG TAB.SR.24H (FP) PO SCH (17:01)
[2023-10-07] MEDS: chlordiazePOXIDE HCL 10 MG CAPSULE PO ONE (05:30)
[2023-10-08 06:34] VITALS: RESP 16
[2023-10-08 09:37] VITALS: BP 134/78; PULSE 87; TEMP 97.7
[2023-10-08 11:44] LABS: INR 0.97 (0.83-1.09)
== END 2023-10-08 12:32 | disposition other institution (70) | DRG 774 ==
LOC: YASAS 18:09 → Y3N 23:27
PROVIDERS: ADMIT Allergy & Immunology; ATTEND Surgery
PROC: HZ2ZZZZ Detoxification Services for Substance Abuse Treatment (ICD-10-PCS; principal; 2023-10-02)
DX: F10.230 Alcohol dependence with withdrawal, uncomplicated (principal); F14.20 Cocaine dependence, uncomplicated; F12.20 Cannabis dependence, uncomplicated; I11.0 Hypertensive heart disease with heart failure; I50.9 Heart failure, unspecified; N17.9 Acute kidney failure, unspecified; E78.5 Hyperlipidemia, unspecified; E11.9 Type 2 diabetes mellitus without complications; Z79.84 Long term (current) use of oral hypoglycemic drugs; Z87.891 Personal history of nicotine dependence; Z88.0 Allergy status to penicillin
CPT/HCPCS: 36415; 80053; 80305; 80307; 82140; 82306; 82962; 83735; 85027; 85610; 86780; 87811; 93005; 93010

== ENCOUNTER 2023-10-08 12:36 | Inpatient (IN) | payer OTHER ==
[2023-10-08] MEDS ORDERED: BENZONATATE 200 MG CAPSULE PO PRN (15:34)
[2023-10-08] MEDS ORDERED: NALOXONE (NYS OPIOID OVERDOSE PROGRAM) 4 MG/0.1 ML SPRAY NS PRN (15:34)
[2023-10-08] MEDS ORDERED: POLYETHYLENE GLYCOL (HEALTHYLAX) 3350 17 GM PACKET PO PRN (15:34)
[2023-10-08] MEDS ORDERED: LOPERAMIDE HCL 2 MG CAPSULE PO PRN (15:34)
[2023-10-08] MEDS ORDERED: guaiFENesin 600 MG TABLET.ER (FP) PO PRN (15:34)
[2023-10-08] MEDS ORDERED: NALOXONE HCL 0.4 MG/ML VIAL IVPUSH PRN (15:34)
[2023-10-08] MEDS ORDERED: BENZOCAINE/MENTHOL (CHLORASEPTIC ) LOZENGE MM PRN (15:34)
[2023-10-08] MEDS: LACTULOSE 20 GM/30 ML UDC (FOR ORAL USE ONLY) PO SCH (15:47)
[2023-10-08] MEDS ORDERED: INSULIN ASPART SLIDING SCALE (NOVOLOG) 1 VIAL SQ SCH (16:30)
[2023-10-08] MEDS ORDERED: INSULIN (NOVOLOG) ASPART 100 UNITS/ML 10ML VIAL ONE (16:48)
[2023-10-08] MEDS: INSULIN ASPART SLIDING SCALE (NOVOLOG) 1 VIAL SQ SCH (16:50)
[2023-10-08] MEDS: THIAMINE 100 MG TABLET PO SCH (21:21)
[2023-10-08] MEDS: MELATONIN 5 MG TABLETS PO SCH (21:21)
[2023-10-08] MEDS: ATORVASTATIN CA 40 MG TABLET (FP) PO SCH (21:22)
[2023-10-08] MEDS: SACUBITRIL/VALSARTAN 49 MG-51 MG TABLET PO SCH (21:23)
[2023-10-09] MEDS ORDERED: INSULIN (NOVOLOG) ASPART 100 UNITS/ML 10ML VIAL ONE ×4 (05:53→21:38)
[2023-10-09] MEDS: ASPIRIN 81 MG CHEWABLE TABLETS PO SCH (10:04)
[2023-10-09] MEDS: amLODIPine BESYLATE 10 MG TABLET (FP) PO SCH (10:04)
[2023-10-09] MEDS: metoPROLOL SUCCINATE 25 MG TAB.SR.24H (FP) PO SCH (10:05)
[2023-10-09] MEDS: PRENATAL VITAMINS W/ FOLIC ACID TABLET (FP) PO SCH (10:05)
[2023-10-09] MEDS: CHOLECALCIFEROL (VIT D3) 400 UNIT (10 MCG) TABLET PO SCH (11:25)
[2023-10-10] MEDS ORDERED: INSULIN (NOVOLOG) ASPART 100 UNITS/ML 10ML VIAL ONE ×3 (07:38→17:16)
[2023-10-10] MEDS: hydrOXYzine PAMOATE 25 MG CAPSULE (FP) PO PRN (14:40)
[2023-10-11] MEDS ORDERED: INSULIN (NOVOLOG) ASPART 100 UNITS/ML 10ML VIAL ONE ×4 (06:35→21:34)
[2023-10-11] MEDS: METHOCARBAMOL 500 MG TABLET PO PRN (06:38)
[2023-10-12] MEDS ORDERED: INSULIN (NOVOLOG) ASPART 100 UNITS/ML 10ML VIAL ONE ×4 (07:03→16:42)
[2023-10-13] MEDS ORDERED: INSULIN (NOVOLOG) ASPART 100 UNITS/ML 10ML VIAL ONE ×4 (07:06→18:28)
[2023-10-13] MEDS: MELATONIN 5 MG TABLETS PO SCH (21:22)
[2023-10-13] MEDS: SACUBITRIL/VALSARTAN 97 MG-103 MG TABLET PO SCH (21:23)
[2023-10-13] MEDS ORDERED: SACUBITRIL/VALSARTAN 49 MG-51 MG TABLET PO SCH (22:00)
[2023-10-13] MEDS ORDERED: SACUBITRIL/VALSARTAN 97 MG-103 MG TABLET PO SCH (22:00)
[2023-10-14] MEDS: amLODIPine BESYLATE 10 MG TABLET (FP) PO SCH (06:40)
[2023-10-14] MEDS ORDERED: INSULIN (NOVOLOG) ASPART 100 UNITS/ML 10ML VIAL ONE ×4 (06:40→19:10)
[2023-10-15] MEDS ORDERED: INSULIN (NOVOLOG) ASPART 100 UNITS/ML 10ML VIAL ONE ×2 (11:40→16:24)
[2023-10-15] MEDS: HYDROCORTISONE 1% TOPICAL CREAM 30 GM TUBE TP PRN (21:19)
[2023-10-16] MEDS ORDERED: INSULIN (NOVOLOG) ASPART 100 UNITS/ML 10ML VIAL ONE ×3 (06:39→17:00)
[2023-10-17] MEDS ORDERED: INSULIN (NOVOLOG) ASPART 100 UNITS/ML 10ML VIAL ONE ×3 (11:49→19:28)
[2023-10-18] MEDS ORDERED: INSULIN (NOVOLOG) ASPART 100 UNITS/ML 10ML VIAL ONE ×4 (06:12→18:53)
[2023-10-19] MEDS ORDERED: INSULIN (NOVOLOG) ASPART 100 UNITS/ML 10ML VIAL ONE ×4 (06:37→21:41)
[2023-10-20] MEDS ORDERED: INSULIN (NOVOLOG) ASPART 100 UNITS/ML 10ML VIAL ONE (06:12)
[2023-10-20 06:39] VITALS: RESP 20; TEMP 97.4
[2023-10-20 09:05] VITALS: BP 140/89; PULSE 82
== END 2023-10-20 09:28 | disposition home or self-care (01) | DRG 772 ==
LOC: YASAS 12:36 → Y3E 12:37
PROVIDERS: ADMIT Allergy & Immunology; ATTEND Psychiatry & Neurology Pain Medicine
PROC: HZ42ZZZ Group Counseling for Substance Abuse Treatment, Cognitive-Behavioral (ICD-10-PCS; principal; 2023-10-08)
DX: F10.20 Alcohol dependence, uncomplicated (principal); F14.20 Cocaine dependence, uncomplicated; F12.20 Cannabis dependence, uncomplicated; E72.20 Disorder of urea cycle metabolism, unspecified; I11.0 Hypertensive heart disease with heart failure; I50.9 Heart failure, unspecified; E11.9 Type 2 diabetes mellitus without complications; Z79.84 Long term (current) use of oral hypoglycemic drugs; L30.9 Dermatitis, unspecified; K21.9 Gastro-esophageal reflux disease without esophagitis; R07.9 Chest pain, unspecified; Z87.891 Personal history of nicotine dependence; Z88.0 Allergy status to penicillin
CPT/HCPCS: 36415; 82140; 82550; 82962; 83880; 84484; 93005; 93010

== ENCOUNTER 2024-05-16 11:08 | Inpatient (IN) | payer OTHER ==
[2024-05-16 11:24] VITALS: BMI 33.7
[2024-05-16] MEDS ORDERED: BENZONATATE 200 MG CAPSULE PO PRN (11:51)
[2024-05-16] MEDS ORDERED: hydrOXYzine PAMOATE 25 MG CAPSULE (FP) PO PRN (11:51)
[2024-05-16] MEDS ORDERED: ONDANSETRON *ODT* 4 MG TABLET SL PRN (11:51)
[2024-05-16] MEDS ORDERED: IBUPROFEN 600 MG TABLET (FP) PO PRN (11:51)
[2024-05-16] MEDS ORDERED: NICOTINE POLACRILEX 2 MG GUM BUC PRN (11:51)
[2024-05-16] MEDS ORDERED: MAG HYDROX/AL HYDROX/SIMETH 30 ML UNIT-DOSE CUP PO PRN (11:51)
[2024-05-16] MEDS ORDERED: IBUPROFEN 400 MG TABLET (FP) PO PRN (11:51)
[2024-05-16] MEDS ORDERED: BISMUTH SUBSALICYLATE 262 MG/15 ML BTL PO PRN (11:51)
[2024-05-16] MEDS ORDERED: ACETAMINOPHEN 325 MG TABLET (FP) PO PRN (11:51)
[2024-05-16] MEDS ORDERED: LOPERAMIDE HCL 2 MG CAPSULE PO PRN (11:51)
[2024-05-16] MEDS ORDERED: guaiFENesin 600 MG TABLET.ER (FP) PO PRN (11:51)
[2024-05-16] MEDS ORDERED: DICYCLOMINE HCL 10 MG CAPSULE PO PRN (11:51)
[2024-05-16] MEDS ORDERED: NALOXONE (NARCAN) HCL 4 MG/0.1 ML SPRAY NS PRN (11:51)
[2024-05-16] MEDS ORDERED: MAGNESIUM HYDROX 2400MG/30ML ORAL SUSPENSION 30 ML CUP PO PRN (11:51)
[2024-05-16] MEDS ORDERED: BENZOCAINE/MENTHOL (CHLORASEPTIC ) LOZENGE MM PRN (11:51)
[2024-05-16] MEDS ORDERED: chlordiazePOXIDE HCL 25 MG CAPSULE PO PRN (11:51)
[2024-05-16] MEDS ORDERED: POLYETHYLENE GLYCOL (HEALTHYLAX) 3350 17 GM PACKET PO PRN (11:51)
[2024-05-16] MEDS ORDERED: HYDROCORTISONE 1% TOPICAL CREAM 30 GM TUBE TP PRN (12:32)
[2024-05-16] MEDS ORDERED: cloNIDine HCL 0.1 MG TABLET ONE (12:38)
[2024-05-16] MEDS: cloNIDine HCL 0.1 MG TABLET PO ONE (12:40)
[2024-05-16] MEDS: metFORMIN HCL 500 MG TABLET (FP) PO SCH (17:15)
[2024-05-16] MEDS: chlordiazePOXIDE HCL 25 MG CAPSULE PO SCH (17:15)
[2024-05-16] MEDS: INSULIN ASPART SLIDING SCALE (NOVOLOG) 1 VIAL SQ SCH (17:19)
[2024-05-16] MEDS: THIAMINE 100 MG TABLET PO SCH (22:30)
[2024-05-16] MEDS: MELATONIN 5 MG TABLETS PO SCH (22:30)
[2024-05-16] MEDS: ATORVASTATIN CA 40 MG TABLET (FP) PO SCH (22:30)
[2024-05-16] MEDS: SACUBITRIL/VALSARTAN 49 MG-51 MG TABLET PO SCH (22:30)
[2024-05-17] MEDS: amLODIPine BESYLATE 10 MG TABLET (FP) PO SCH (06:10)
[2024-05-17] MEDS ORDERED: INSULIN (NOVOLOG) ASPART 100 UNITS/ML 10ML VIAL ONE (08:25)
[2024-05-17] MEDS: ASPIRIN 81 MG CHEWABLE TABLETS PO SCH (10:41)
[2024-05-17] MEDS: CHOLECALCIFEROL (VIT D3) 400 UNIT (10 MCG) TABLET PO SCH (10:41)
[2024-05-17] MEDS: PRENATAL VITAMINS W/ FOLIC ACID TABLET (FP) PO SCH (10:41)
[2024-05-17] MEDS: metoPROLOL SUCCINATE 25 MG TAB.SR.24H (FP) PO SCH (10:43)
[2024-05-18] MEDS: chlordiazePOXIDE HCL 25 MG CAPSULE PO SCH (06:07)
[2024-05-19] MEDS ORDERED: chlordiazePOXIDE HCL 10 MG CAPSULE PO PRN
[2024-05-19] MEDS: chlordiazePOXIDE HCL 10 MG CAPSULE PO SCH (06:08)
[2024-05-19] MEDS ORDERED: INSULIN (NOVOLOG) ASPART 100 UNITS/ML 10ML VIAL ONE (17:13)
[2024-05-19] MEDS: METHOCARBAMOL 500 MG TABLET PO PRN (22:31)
[2024-05-20] MEDS: chlordiazePOXIDE HCL 10 MG CAPSULE PO SCH (05:50)
[2024-05-20 07:00] VITALS: RESP 18
[2024-05-21] MEDS: chlordiazePOXIDE HCL 10 MG CAPSULE PO ONE (05:53)
[2024-05-21 06:49] VITALS: BP 133/80; PULSE 60; TEMP 97.8
[2024-05-21] MEDS: NALOXONE (NYS OPIOID OVERDOSE PROGRAM) 4 MG/0.1 ML SPRAY NS SCH (11:42)
== END 2024-05-21 10:17 | disposition home or self-care (01) | DRG 775 ==
LOC: YASAS 11:08 → Y6N 12:56
PROVIDERS: ADMIT Allergy & Immunology; ATTEND Surgery
PROC: HZ2ZZZZ Detoxification Services for Substance Abuse Treatment (ICD-10-PCS; principal; 2024-05-16)
DX: F10.230 Alcohol dependence with withdrawal, uncomplicated (principal); F12.20 Cannabis dependence, uncomplicated; F17.210 Nicotine dependence, cigarettes, uncomplicated; F10.282 Alcohol dependence with alcohol-induced sleep disorder; I10 Essential (primary) hypertension; E78.5 Hyperlipidemia, unspecified; E11.9 Type 2 diabetes mellitus without complications; Z79.84 Long term (current) use of oral hypoglycemic drugs; K21.9 Gastro-esophageal reflux disease without esophagitis; Z88.0 Allergy status to penicillin
CPT/HCPCS: 82962; 93005; 93010

== ENCOUNTER 2024-05-30 08:39 | Inpatient (IN) | payer OTHER ==
[2024-05-30] MEDS ORDERED: NALOXONE (NARCAN) HCL 4 MG/0.1 ML SPRAY NS PRN (09:14)
[2024-05-30] MEDS ORDERED: BENZOCAINE/MENTHOL (CHLORASEPTIC ) LOZENGE MM PRN (09:14)
[2024-05-30] MEDS ORDERED: POLYETHYLENE GLYCOL (HEALTHYLAX) 3350 17 GM PACKET PO PRN (09:14)
[2024-05-30] MEDS ORDERED: MAGNESIUM HYDROX 2400MG/30ML ORAL SUSPENSION 30 ML CUP PO PRN (09:14)
[2024-05-30] MEDS ORDERED: MAG HYDROX/AL HYDROX/SIMETH 30 ML UNIT-DOSE CUP PO PRN (09:14)
[2024-05-30] MEDS ORDERED: IBUPROFEN 400 MG TABLET (FP) PO PRN (09:14)
[2024-05-30] MEDS ORDERED: NICOTINE POLACRILEX 2 MG GUM BUC PRN (09:14)
[2024-05-30] MEDS ORDERED: ACETAMINOPHEN 325 MG TABLET (FP) PO PRN (09:14)
[2024-05-30] MEDS ORDERED: LOPERAMIDE HCL 2 MG CAPSULE PO PRN (09:14)
[2024-05-30] MEDS ORDERED: IBUPROFEN 600 MG TABLET (FP) PO PRN (09:14)
[2024-05-30] MEDS ORDERED: BENZONATATE 200 MG CAPSULE PO PRN (09:14)
[2024-05-30] MEDS ORDERED: guaiFENesin 600 MG TABLET.ER (FP) PO PRN (09:14)
[2024-05-30 09:57] VITALS: BMI 33.7
[2024-05-30] MEDS ORDERED: GABAPENTIN 100 MG CAPSULE ONE (10:45)
[2024-05-30] MEDS ORDERED: amLODIPine BESYLATE 5 MG TABLET (FP) ONE (10:45)
[2024-05-30] MEDS ORDERED: ASPIRIN 81 MG CHEWABLE TABLETS ONE (10:45)
[2024-05-30] MEDS ORDERED: PRENATAL VITAMINS W/ FOLIC ACID TABLET (FP) PO ONE (10:46)
[2024-05-30] MEDS: PRENATAL VITAMINS W/ FOLIC ACID TABLET (FP) PO SCH (10:52)
[2024-05-30] MEDS: ASPIRIN 81 MG CHEWABLE TABLETS PO SCH (10:52)
[2024-05-30] MEDS: GABAPENTIN 300 MG CAPSULE PO SCH (10:53)
[2024-05-30] MEDS: amLODIPine BESYLATE 10 MG TABLET (FP) PO SCH (10:53)
[2024-05-30] MEDS: metoPROLOL SUCCINATE 25 MG TAB.SR.24H (FP) PO SCH (13:10)
[2024-05-30] MEDS: metFORMIN HCL 500 MG TABLET (FP) PO SCH (17:16)
[2024-05-30] MEDS: ATORVASTATIN CA 40 MG TABLET (FP) PO SCH (22:20)
[2024-05-30] MEDS: MELATONIN 5 MG TABLETS PO SCH (22:21)
[2024-05-30] MEDS: THIAMINE 100 MG TABLET PO SCH (22:21)
[2024-05-30 23:38] LABS: URINE APPEARANCE CLEAR; URINE BILIRUBIN NEGATIVE (NEGATIVE); URINE COLOR YELLOW; URINE GLUCOSE (UA) 3+ (NEGATIVE); URINE KETONE NEGATIVE (NEGATIVE); URINE LEUK ESTERASE NEGATIVE (NEGATIVE); URINE NITRITE NEGATIVE (NEGATIVE); URINE PROTEIN NEGATIVE (NEGATIVE); URINE UROBILINOGEN 0.2 mg/dL (0.2-1.0)
[2024-05-31] MEDS: CHOLECALCIFEROL (VIT D3) 400 UNIT (10 MCG) TABLET PO SCH (09:23)
[2024-05-31 11:31] LABS: POTASSIUM 3.7 mmol/L (3.5-5.1)
[2024-05-31 11:32] LABS: HEMATOCRIT 38.3 % (35.4-49); MCH 29.6 pg (25.7-33.7); MEAN CELL VOLUME 86.9 fl (80-96); MEAN PLT VOLUME 8.8 fl (7.5-11.1); PLATELET COUNT 150 10^3/uL (134-434); RDW 13.3 % (11.9-15.9); WHITE BLOOD COUNT 2.8 K/mm3 (4.0-10.0)
[2024-05-31 11:42] LABS: CALCIUM 9.1 mg/dL (8.5-10.1)
[2024-05-31 11:43] LABS: ALBUMIN 3.4 g/dl (3.4-5.0); BLOOD UREA NITROGEN 8.2 mg/dL (7-18)
[2024-05-31 11:46] LABS: CREATININE 1.1 mg/dL (0.55-1.3)
[2024-05-31 11:48] LABS: BILIRUBIN,TOTAL 1.3 mg/dL (0.2-1); TOT PROT 6.5 g/dl (6.4-8.2)
[2024-05-31] MEDS: PNEUMOC 20-VAL CONJ-DIP CRM/PF 0.5 ML SYRINGE IM ONE (11:49)
[2024-05-31] MEDS: FLU VACCINE (FLULAVAL) PF 45 MCG/0.5 ML SYRINGE 2024-2025 IM ONE (11:49)
[2024-05-31] MEDS: hydrOXYzine PAMOATE 25 MG CAPSULE (FP) PO PRN (21:20)
[2024-06-01] MEDS ORDERED: AMMONIUM LACTATE 12% LOTION 225 GM BOTTLE TP PRN (14:53)
[2024-06-01] MEDS: HYDROCORTISONE 1% TOPICAL OINT 30 GM TUBE TP PRN (22:01)
[2024-06-02 06:56] VITALS: BP 133/91; PULSE 67; RESP 20; TEMP 97.7
[2024-06-02] MEDS: NALOXONE (NYS OPIOID OVERDOSE PROGRAM) 4 MG/0.1 ML SPRAY NS SCH (11:40)
[2024-06-02] MEDS ORDERED: INSULIN ASPART SLIDING SCALE (NOVOLOG) 1 VIAL SQ SCH (16:30)
== END 2024-06-02 12:16 | disposition home or self-care (01) | DRG 772 ==
LOC: YASAS 08:39 → Y3NR 10:59 → Y3E 05-31 09:12
PROVIDERS: ADMIT Psychiatry & Neurology Pain Medicine; ATTEND Psychiatry & Neurology Pain Medicine
PROC: HZ42ZZZ Group Counseling for Substance Abuse Treatment, Cognitive-Behavioral (ICD-10-PCS; principal; 2024-05-30)
DX: F10.20 Alcohol dependence, uncomplicated (principal); F12.20 Cannabis dependence, uncomplicated; F17.210 Nicotine dependence, cigarettes, uncomplicated; F10.282 Alcohol dependence with alcohol-induced sleep disorder; E78.5 Hyperlipidemia, unspecified; I10 Essential (primary) hypertension; E11.65 Type 2 diabetes mellitus with hyperglycemia; Z79.84 Long term (current) use of oral hypoglycemic drugs; L30.9 Dermatitis, unspecified; L85.3 Xerosis cutis; M54.50 Low back pain, unspecified; G89.29 Other chronic pain; Z88.0 Allergy status to penicillin
CPT/HCPCS: 36415; 80053; 80305; 80307; 81003; 82962; 85027; 86780; 87811

== ENCOUNTER 2024-07-09 11:36 | Inpatient (IN) | payer OTHER ==
[2024-07-09 11:38] VITALS: BMI 34.5
[2024-07-09] MEDS ORDERED: MAG HYDROX/AL HYDROX/SIMETH 30 ML UNIT-DOSE CUP PO PRN (12:08)
[2024-07-09] MEDS ORDERED: IBUPROFEN 600 MG TABLET (FP) PO PRN (12:08)
[2024-07-09] MEDS ORDERED: BISMUTH SUBSALICYLATE 524 MG/30 ML PO PRN (12:08)
[2024-07-09] MEDS ORDERED: NICOTINE POLACRILEX 2 MG GUM BUC PRN (12:08)
[2024-07-09] MEDS ORDERED: POLYETHYLENE GLYCOL (HEALTHYLAX) 3350 17 GM PACKET PO PRN (12:08)
[2024-07-09] MEDS ORDERED: NALOXONE (NARCAN) HCL 4 MG/0.1 ML SPRAY NS PRN (12:08)
[2024-07-09] MEDS ORDERED: MAGNESIUM HYDROX 2400MG/30ML ORAL SUSPENSION 30 ML CUP PO PRN (12:08)
[2024-07-09] MEDS ORDERED: BENZONATATE 200 MG CAPSULE PO PRN (12:08)
[2024-07-09] MEDS ORDERED: IBUPROFEN 400 MG TABLET (FP) PO PRN (12:08)
[2024-07-09] MEDS ORDERED: BENZOCAINE/MENTHOL (CHLORASEPTIC ) LOZENGE MM PRN (12:08)
[2024-07-09] MEDS ORDERED: NICOTINE POLACRILEX 2 MG LOZENGE BC PRN (12:08)
[2024-07-09] MEDS ORDERED: guaiFENesin 600 MG TABLET.ER (FP) PO PRN (12:08)
[2024-07-09] MEDS ORDERED: DICYCLOMINE HCL 10 MG CAPSULE PO PRN (12:08)
[2024-07-09] MEDS ORDERED: ACETAMINOPHEN 325 MG TABLET (FP) PO PRN (12:08)
[2024-07-09] MEDS ORDERED: METHOCARBAMOL 500 MG TABLET PO PRN (12:08)
[2024-07-09] MEDS ORDERED: LOPERAMIDE HCL 2 MG CAPSULE PO PRN (12:08)
[2024-07-09] MEDS: ONDANSETRON *ODT* 4 MG TABLET SL PRN (15:35)
[2024-07-09] MEDS ORDERED: ONDANSETRON *ODT* 4 MG TABLET ONE (15:50)
[2024-07-09] MEDS: THIAMINE 100 MG TABLET PO SCH (22:27)
[2024-07-09] MEDS: MELATONIN 5 MG TABLETS PO SCH (22:27)
[2024-07-10 09:29] LABS: CHLORIDE 102 mmol/L (98-107); POTASSIUM 3.7 mmol/L (3.5-5.1); SODIUM 138 mmol/L (136-145)
[2024-07-10 09:30] LABS: HEMATOCRIT 37.5 % (35.4-49); HEMOGLOBIN 12.9 GM/dL (11.7-16.9); MCH 30.1 pg (25.7-33.7); MCHC 34.4 g/dl (32.0-35.9); MEAN CELL VOLUME 87.4 fl (80-96); MEAN PLT VOLUME 8.3 fl (7.5-11.1); PLATELET COUNT 191 10^3/uL (134-434); RBC 4.29 M/mm3 (4.00-5.60); RDW 13.3 % (11.9-15.9); WHITE BLOOD COUNT 3.5 K/mm3 (4.0-10.0)
[2024-07-10 09:33] LABS: ALBUMIN 3.8 g/dl (3.4-5.0); CALCIUM 9.1 mg/dL (8.5-10.1)
[2024-07-10 09:34] LABS: ANION GAP 4 mmol/L (4-13); BLOOD UREA NITROGEN 10.4 mg/dL (7-18); CO2 31 mmol/L (21-32); GLUCOSE,RANDOM 163 mg/dL (74-106)
[2024-07-10 09:37] LABS: SGOT/AST 12 U/L (15-37); SGPT/ALT 22 U/L (13-61)
[2024-07-10 09:38] LABS: BILIRUBIN,TOTAL 0.8 mg/dL (0.2-1); TOT PROT 7.1 g/dl (6.4-8.2)
[2024-07-10 09:40] LABS: ALK PHOS 88 U/L (45-117)
[2024-07-10] MEDS: PRENATAL VITAMINS W/ FOLIC ACID TABLET (FP) PO SCH (09:49)
[2024-07-10] MEDS ORDERED: chlordiazePOXIDE HCL 25 MG CAPSULE PO PRN (10:29)
[2024-07-10] MEDS: chlordiazePOXIDE HCL 25 MG CAPSULE PO SCH (11:42)
[2024-07-10] MEDS: ATORVASTATIN CA 40 MG TABLET (FP) PO SCH (23:07)
[2024-07-11] MEDS: amLODIPine BESYLATE 10 MG TABLET (FP) PO SCH (05:48)
[2024-07-11] MEDS: metoPROLOL SUCCINATE 25 MG TAB.SR.24H (FP) PO SCH (10:28)
[2024-07-11] MEDS: metFORMIN HCL 500 MG TABLET (FP) PO SCH (17:29)
[2024-07-12] MEDS: chlordiazePOXIDE HCL 25 MG CAPSULE PO SCH (06:00)
[2024-07-12] MEDS: ASPIRIN 81 MG CHEWABLE TABLETS PO SCH (10:45)
[2024-07-12] MEDS: GABAPENTIN 300 MG CAPSULE PO SCH (10:46)
[2024-07-12] MEDS: SACUBITRIL/VALSARTAN 49 MG-51 MG TABLET PO SCH (10:59)
[2024-07-12] MEDS: INSULIN ASPART SLIDING SCALE (NOVOLOG) 1 VIAL SQ SCH (11:09)
[2024-07-12] MEDS ORDERED: metFORMIN HCL 500 MG TABLET (FP) PO SCH (16:30)
[2024-07-12] MEDS ORDERED: INSULIN (NOVOLOG) ASPART 100 UNITS/ML 10ML VIAL ONE (16:47)
[2024-07-13] MEDS ORDERED: chlordiazePOXIDE HCL 10 MG CAPSULE PO PRN
[2024-07-13] MEDS: chlordiazePOXIDE HCL 10 MG CAPSULE PO SCH (05:50)
[2024-07-13 09:13] VITALS: RESP 18
[2024-07-13] MEDS ORDERED: INSULIN (NOVOLOG) ASPART 100 UNITS/ML 10ML VIAL ONE ×2 (17:22→22:07)
[2024-07-13] MEDS: FLUOCINONIDE 0.05% TOP OINT (60 GM TUBE) TP SCH (22:04)
[2024-07-14] MEDS: chlordiazePOXIDE HCL 10 MG CAPSULE PO SCH (05:59)
[2024-07-14 07:26] VITALS: BP 135/87; PULSE 61; TEMP 98.7
[2024-07-14] MEDS ORDERED: ACAMPROSATE CALCIUM 333 MG TABLET.DR PO SCH (14:00)
[2024-07-15] MEDS ORDERED: chlordiazePOXIDE HCL 10 MG CAPSULE PO ONE (05:00)
== END 2024-07-14 11:25 | disposition home or self-care (01) | DRG 775 ==
LOC: YASAS 11:36 → Y6N 16:03
PROVIDERS: ADMIT Allergy & Immunology; ATTEND Allergy & Immunology
PROC: HZ2ZZZZ Detoxification Services for Substance Abuse Treatment (ICD-10-PCS; principal; 2024-07-09)
DX: F10.230 Alcohol dependence with withdrawal, uncomplicated (principal); F12.20 Cannabis dependence, uncomplicated; F17.210 Nicotine dependence, cigarettes, uncomplicated; I10 Essential (primary) hypertension; K21.9 Gastro-esophageal reflux disease without esophagitis; E78.5 Hyperlipidemia, unspecified; E11.9 Type 2 diabetes mellitus without complications; Z79.84 Long term (current) use of oral hypoglycemic drugs; L30.9 Dermatitis, unspecified; M54.50 Low back pain, unspecified; G89.29 Other chronic pain; Z88.0 Allergy status to penicillin
CPT/HCPCS: 36415; 80053; 80305; 80307; 82962; 85027; Q0162

== ENCOUNTER 2024-08-21 10:08 | Inpatient (IN) | payer OTHER ==
[2024-08-21 10:37] VITALS: BMI 35.6
[2024-08-21] MEDS ORDERED: IBUPROFEN 600 MG TABLET (FP) PO PRN (11:01)
[2024-08-21] MEDS ORDERED: MAGNESIUM HYDROX 2400MG/30ML ORAL SUSPENSION 30 ML CUP PO PRN (11:01)
[2024-08-21] MEDS ORDERED: ONDANSETRON *ODT* 4 MG TABLET SL PRN (11:01)
[2024-08-21] MEDS ORDERED: BENZOCAINE/MENTHOL (CHLORASEPTIC ) LOZENGE MM PRN (11:01)
[2024-08-21] MEDS ORDERED: guaiFENesin 600 MG TABLET.ER (FP) PO PRN (11:01)
[2024-08-21] MEDS ORDERED: MAG HYDROX/AL HYDROX/SIMETH 30 ML UNIT-DOSE CUP PO PRN (11:01)
[2024-08-21] MEDS ORDERED: NALOXONE (NARCAN) HCL 4 MG/0.1 ML SPRAY NS PRN (11:01)
[2024-08-21] MEDS ORDERED: LOPERAMIDE HCL 2 MG CAPSULE PO PRN (11:01)
[2024-08-21] MEDS ORDERED: METHOCARBAMOL 500 MG TABLET PO PRN (11:01)
[2024-08-21] MEDS ORDERED: BISMUTH SUBSALICYLATE 524 MG/30 ML PO PRN (11:01)
[2024-08-21] MEDS ORDERED: ACETAMINOPHEN 325 MG TABLET (FP) PO PRN (11:01)
[2024-08-21] MEDS ORDERED: DICYCLOMINE HCL 10 MG CAPSULE PO PRN (11:01)
[2024-08-21] MEDS ORDERED: IBUPROFEN 400 MG TABLET (FP) PO PRN (11:01)
[2024-08-21] MEDS ORDERED: POLYETHYLENE GLYCOL (HEALTHYLAX) 3350 17 GM PACKET PO PRN (11:01)
[2024-08-21] MEDS ORDERED: BENZONATATE 200 MG CAPSULE PO PRN (11:01)
[2024-08-21] MEDS: ASPIRIN 81 MG CHEWABLE TABLETS PO SCH (14:57)
[2024-08-21] MEDS: metFORMIN HCL 500 MG TABLET (FP) PO SCH (17:40)
[2024-08-21] MEDS: ATORVASTATIN CA 40 MG TABLET (FP) PO SCH (21:16)
[2024-08-21] MEDS: THIAMINE 100 MG TABLET PO SCH (21:16)
[2024-08-21] MEDS: hydrOXYzine PAMOATE 25 MG CAPSULE (FP) PO PRN (21:16)
[2024-08-21] MEDS: MELATONIN 5 MG TABLETS PO SCH (21:16)
[2024-08-21] MEDS: cloNIDine HCL 0.1 MG TABLET PO ONE (21:36)
[2024-08-21] MEDS: SACUBITRIL/VALSARTAN 49 MG-51 MG TABLET PO SCH (23:08)
[2024-08-22] MEDS: amLODIPine BESYLATE 10 MG TABLET (FP) PO SCH (06:15)
[2024-08-22] MEDS: PRENATAL VITAMINS W/ FOLIC ACID TABLET (FP) PO SCH (09:39)
[2024-08-22] MEDS: CHOLECALCIFEROL (VIT D3) 400 UNIT (10 MCG) TABLET PO SCH (09:40)
[2024-08-22] MEDS: cloNIDine HCL 0.1 MG TABLET PO ONE (17:25)
[2024-08-22 20:46] VITALS: RESP 16
[2024-08-23 06:19] VITALS: BP 102/65; PULSE 67; TEMP 98.2
== END 2024-08-23 09:20 | disposition home or self-care (01) | DRG 775 ==
LOC: YASAS 10:08 → Y3N 13:09
PROVIDERS: ADMIT Neuromusculoskeletal Medicine & OMM; ATTEND Neuromusculoskeletal Medicine & OMM
PROC: HZ2ZZZZ Detoxification Services for Substance Abuse Treatment (ICD-10-PCS; principal; 2024-08-21)
DX: F10.20 Alcohol dependence, uncomplicated (principal); F12.20 Cannabis dependence, uncomplicated; I11.0 Hypertensive heart disease with heart failure; I50.9 Heart failure, unspecified; E78.5 Hyperlipidemia, unspecified; E11.9 Type 2 diabetes mellitus without complications; Z79.84 Long term (current) use of oral hypoglycemic drugs; Z87.891 Personal history of nicotine dependence
CPT/HCPCS: 80305; 80307; 82962

== ENCOUNTER 2024-11-16 10:11 | Inpatient (IN) | payer BC ==
[2024-11-16 10:28] VITALS: BMI 33.7
[2024-11-16] MEDS ORDERED: BENZONATATE 200 MG CAPSULE PO PRN (10:35)
[2024-11-16] MEDS ORDERED: MAG HYDROX/AL HYDROX/SIMETH 30 ML UNIT-DOSE CUP PO PRN (10:35)
[2024-11-16] MEDS ORDERED: ONDANSETRON *ODT* 4 MG TABLET SL PRN (10:35)
[2024-11-16] MEDS ORDERED: DICYCLOMINE HCL 10 MG CAPSULE PO PRN (10:35)
[2024-11-16] MEDS ORDERED: hydrOXYzine PAMOATE 25 MG CAPSULE (FP) PO PRN (10:35)
[2024-11-16] MEDS ORDERED: POLYETHYLENE GLYCOL (HEALTHYLAX) 3350 17 GM PACKET PO PRN (10:35)
[2024-11-16] MEDS ORDERED: BISMUTH SUBSALICYLATE 262 MG/15 ML BTL PO PRN (10:35)
[2024-11-16] MEDS ORDERED: ACETAMINOPHEN 325 MG TABLET (FP) PO PRN (10:35)
[2024-11-16] MEDS ORDERED: MAGNESIUM HYDROX 2400MG/30ML ORAL SUSPENSION 30 ML CUP PO PRN (10:35)
[2024-11-16] MEDS ORDERED: BENZOCAINE/MENTHOL (CHLORASEPTIC ) LOZENGE MM PRN (10:35)
[2024-11-16] MEDS ORDERED: LOPERAMIDE HCL 2 MG CAPSULE PO PRN (10:35)
[2024-11-16] MEDS ORDERED: IBUPROFEN 400 MG TABLET (FP) PO PRN (10:35)
[2024-11-16] MEDS ORDERED: guaiFENesin 600 MG TABLET.ER (FP) PO PRN (10:35)
[2024-11-16] MEDS ORDERED: NALOXONE (NARCAN) HCL 4 MG/0.1 ML SPRAY NS PRN (10:35)
[2024-11-16] MEDS ORDERED: ASPIRIN 81 MG CHEWABLE TABLETS ONE (11:32)
[2024-11-16] MEDS ORDERED: METOPROLOL TARTRATE 25 MG TABLET (FP) ONE (11:32)
[2024-11-16] MEDS ORDERED: amLODIPine BESYLATE 5 MG TABLET (FP) ONE (11:32)
[2024-11-16] MEDS: NALTREXONE HCL 50 MG TABLET PO ONE (11:35)
[2024-11-16] MEDS: ASPIRIN 81 MG CHEWABLE TABLETS PO SCH (11:35)
[2024-11-16] MEDS: amLODIPine BESYLATE 10 MG TABLET (FP) PO SCH (11:36)
[2024-11-16] MEDS: metoPROLOL SUCCINATE 25 MG TAB.SR.24H (FP) PO SCH (11:36)
[2024-11-16] MEDS: ACAMPROSATE CALCIUM 333 MG TABLET.DR PO SCH (13:59)
[2024-11-16] MEDS: metFORMIN HCL 500 MG TABLET (FP) PO SCH (17:35)
[2024-11-16] MEDS: chlordiazePOXIDE HCL 25 MG CAPSULE PO SCH (17:35)
[2024-11-16] MEDS: THIAMINE 100 MG TABLET PO SCH (22:20)
[2024-11-16] MEDS: MELATONIN 5 MG TABLETS PO SCH (22:20)
[2024-11-16] MEDS: hydrALAZINE HCL 25 MG TABLET (FP) PO ONE (22:20)
[2024-11-16] MEDS: ATORVASTATIN CA 40 MG TABLET (FP) PO SCH (22:20)
[2024-11-17] MEDS: PRENATAL VITAMINS W/ FOLIC ACID TABLET (FP) PO SCH (10:14)
[2024-11-17] MEDS: NALTREXONE HCL 50 MG TABLET PO SCH (10:15)
[2024-11-17 11:45] LABS: HEMOGLOBIN 12.4 g/dL (13.7-17.5); MCHC 32.6 g/dl (32.3-36.5); MEAN CELL VOLUME 89.6 fl (79.0-92.2); MEAN PLT VOLUME 10.7 fl (9.4-12.4); PLATELET COUNT 227 x10^3/uL (163-337); RDW 11.7 % (12.2-16.1)
[2024-11-17 11:46] LABS: POTASSIUM 3.8 mmol/L (3.5-5.1)
[2024-11-17 11:54] LABS: CALCIUM 9.6 mg/dL (8.5-10.1); TOT PROT 7.1 g/dl (6.4-8.2)
[2024-11-17 11:55] LABS: ALBUMIN 3.7 g/dl (3.4-5.0)
[2024-11-17 11:56] LABS: BILIRUBIN,TOTAL 0.8 mg/dL (0.2-1)
[2024-11-17] MEDS: cloNIDine HCL 0.1 MG TABLET PO PRN (11:56)
[2024-11-17 11:58] LABS: CREATININE 1.3 mg/dL (0.55-1.3)
[2024-11-17] MEDS: INSULIN ASPART SLIDING SCALE (NOVOLOG) 1 VIAL SQ SCH (17:35)
[2024-11-17] MEDS: SACUBITRIL/VALSARTAN 49 MG-51 MG TABLET PO ONE (20:36)
[2024-11-17] MEDS: SACUBITRIL/VALSARTAN 49 MG-51 MG TABLET PO SCH (22:26)
[2024-11-18] MEDS: chlordiazePOXIDE HCL 25 MG CAPSULE PO SCH (05:35)
[2024-11-18] MEDS: chlordiazePOXIDE HCL 25 MG CAPSULE PO PRN (05:41)
[2024-11-18] MEDS: metoPROLOL SUCCINATE 25 MG TAB.SR.24H (FP) PO ONE (16:08)
[2024-11-19] MEDS ORDERED: chlordiazePOXIDE HCL 10 MG CAPSULE PO PRN
[2024-11-19] MEDS: chlordiazePOXIDE HCL 10 MG CAPSULE PO SCH (06:00)
[2024-11-20] MEDS: chlordiazePOXIDE HCL 10 MG CAPSULE PO SCH (06:15)
[2024-11-20] MEDS: IBUPROFEN 600 MG TABLET (FP) PO PRN (22:30)
[2024-11-20] MEDS: METHOCARBAMOL 500 MG TABLET PO PRN (22:30)
[2024-11-21] MEDS: chlordiazePOXIDE HCL 10 MG CAPSULE PO ONE (05:40)
[2024-11-21] MEDS: HYDROCHLOROTHIAZIDE 25 MG TABLET (FP) PO SCH (09:03)
[2024-11-21 11:55] VITALS: BP 151/102; PULSE 80; RESP 14; TEMP 96.9
== END 2024-11-21 09:08 | disposition home or self-care (01) | DRG 775 ==
LOC: YASAS 10:11 → Y3N 11:15
PROVIDERS: ADMIT Allergy & Immunology; ATTEND Allergy & Immunology
PROC: HZ2ZZZZ Detoxification Services for Substance Abuse Treatment (ICD-10-PCS; principal; 2024-11-16)
DX: F10.230 Alcohol dependence with withdrawal, uncomplicated (principal); F12.20 Cannabis dependence, uncomplicated; I10 Essential (primary) hypertension; E78.2 Mixed hyperlipidemia; K21.9 Gastro-esophageal reflux disease without esophagitis; E11.9 Type 2 diabetes mellitus without complications; Z79.84 Long term (current) use of oral hypoglycemic drugs; Z86.79 Personal history of other diseases of the circulatory system; Z87.891 Personal history of nicotine dependence; Z88.0 Allergy status to penicillin
CPT/HCPCS: 36415; 80053; 80061; 80307; 82962; 83036; 85027; 86780; 93005; 93010